=== PATIENT | male | born 1945 | race American Indian/Alaskan Native ===

== ENCOUNTER 2017-01-18 07:57 | Day surgery (SDC) | payer MEDICARE ==
[2017-01-18] MEDS ORDERED: ECOTRIN PO ONE (08:20)
[2017-01-18 08:48] LABS: Basophils % (Auto) 1.3 % (0.0-1.8); Eosinophils % (Auto) 4.9 % (0.0-4.3); Hemoglobin 13.1 gm/dl (11.8-15.2); Mean Corpuscular HGB Conc 34 % (32-34); Mean Corpuscular Hemoglobin 35 pg (28-32); Mean Corpuscular Volume 104 fl (84-94); Platelet Count 244 K/mm3 (140-440); Red Blood Count 3.75 M/mm3 (3.65-5.03); Red Cell Distribution Width 15.4 % (13.2-15.2); White Blood Count 5.2 K/mm3 (4.5-11.0)
[2017-01-18] MEDS ORDERED: NACL 0.9% 500 ML 500 ML IV SCH (09:00)
[2017-01-18 09:11] LABS: INR 0.98 (0.87-1.13)
[2017-01-18 09:19] LABS: Anion Gap 21 mmol/L; BUN/Creatinine Ratio 6.25; Blood Urea Nitrogen 5 mg/dL (9-20); Calcium 8.8 mg/dL (8.4-10.2); Carbon Dioxide 23 mmol/L (22-30); Chloride 99.9 mmol/L (98-107); Glucose 101 mg/dL (75-100); Potassium 4.2 mmol/L (3.6-5.0); Sodium 140 mmol/L (137-145)
[2017-01-18] MEDS: CALAN ONE ×2 (09:54→10:23)
[2017-01-18] MEDS: XYLOCAINE 2% INFILTRATI ONE ×2 (09:55→10:23)
[2017-01-18] MEDS: HEPARIN 10,000 UNITS/10 ML ONE ×2 (09:55→10:23)
[2017-01-18] MEDS: VERSED ONE ×2 (09:55→10:15)
[2017-01-18] MEDS: NITROGLYCERIN SYRINGE 3 ML ONE ×2 (09:56→10:23)
[2017-01-18] MEDS: SUBLIMAZE ONE ×2 (09:56→10:15)
[2017-01-18] MEDS: HEPARIN/NS 5000 UNIT/500ML(CATH LAB) 1,000 ML IR ONE ×2 (09:56→10:23)
[2017-01-18] MEDS ORDERED: NACL 0.9% 1000 ML 1,000 ML IV SCH (11:00)
--- NOTE | 2017-01-18 11:03 | Discharge Summary ---
Short Stay Discharge Plan Activity: advance as tolerated Weight Bearing Status: Full Weight Bearing Diet: low fat, low cholesterol, low salt, diabetic Wound: keep clean and dry Special Instructions: no heavy lifting (3 days), hold Metformin (48 hrs) Additional Instructions: HOLD METFORMIN for 48 hrs only Follow up with: RALF PEREIRA MD [Primary Care Provider] - 7 Days AMBAR ADAMS MD [Staff Physician] - 7 Days
--- NOTE | 2017-01-18 11:26 | Cardiac Catherization Report ---
CARDIAC CATHETERIZATION REASON FOR PROCEDURE: The patient presented with sustained atrial tachycardia, further evaluation with an echocardiogram demonstrated a dilated cardiomyopathy, and a thallium stress test was abnormal with inferior wall defect. Cardiac catheterization was recommended. DESCRIPTION OF PROCEDURE: The patient was prepped and draped in a sterile fashion after informed consent. The right radial artery was entered using the Seldinger technique followed by placement of a 6-Hungarian hydrophilic sheath. Routine radial cocktail was administered via the sheath. Selective left and right coronary angiography was performed using #3.5 left Mary and #4 right Mary catheters. A pigtail catheter was used for left ventricle angiography. The catheters were removed, sheath removed, and hemostasis achieved using manual compression. The patient was returned to the postprocedure unit in stable condition. There were no complications. FINDINGS: HEMODYNAMICS: Left ventricle end diastolic pressure was 25, following coronary angiography. Ascending aortic pressure was 119/71. There was no significant pressure gradient on pullback across the aortic valve. CORONARY ANGIOGRAPHY: The left main coronary artery was angiographically normal. The left anterior descending artery and its diagonal branches were free of significant disease. The circumflex artery and its obtuse marginal branches were free of significant disease. The right coronary artery was dominant, and similarly angiographically normal. Left ventricle was moderately to severely dilated. There was moderately severe left ventricular systolic dysfunction with diffuse hypokinesis. Left ventricular systolic ejection fraction 30-35%. CONCLUSION: 1. Essentially, angiographically normal coronary arteries. 2. Dilated, nonischemic cardiomyopathy, moderately severe left ventricular systolic dysfunction, ejection fraction 30-35%. RECOMMENDATION: Medical therapy for nonischemic cardiomyopathy. JOB# [id number] CA/NTS
[2017-01-18 14:23] VITALS: BP 134/89
== END 2017-01-18 15:00 | disposition home or self-care (01) ==
LOC: OPU 07:57
PROVIDERS: ATTEND Internal Medicine Cardiovascular Disease
DX: I42.0 Dilated cardiomyopathy (principal); E11.9 Type 2 diabetes mellitus without complications; M06.9 Rheumatoid arthritis, unspecified; I10 Essential (primary) hypertension; F17.210 Nicotine dependence, cigarettes, uncomplicated; D62 Acute posthemorrhagic anemia; F12.90 Cannabis use, unspecified, uncomplicated; Z72.89 Other problems related to lifestyle; Z90.49 Acquired absence of other specified parts of digestive tract; Z98.890 Other specified postprocedural states; Z80.0 Family history of malignant neoplasm of digestive organs; Z82.49 Family history of ischemic heart disease and other diseases of the circulatory system; Z83.3 Family history of diabetes mellitus; Z80.42 Family history of malignant neoplasm of prostate; Z79.899 Other long term (current) drug therapy
CPT/HCPCS: 36415; 80048; 85025; 85610; 85730; 93005; 93010; 93458; C1894; J1644; J2250; J3010; J7040; Q9967

== ENCOUNTER 2017-07-29 14:21 | Emergency (ER) | payer MEDICARE ==
[2017-07-29 14:43] LABS: Basophils % (Auto) 0.6 % (0.0-1.8); Eosinophils % (Auto) 0.5 % (0.0-4.3); Hematocrit 38.7 % (35.5-45.6); Mean Corpuscular HGB Conc 34 % (32-34); Mean Corpuscular Hemoglobin 36 pg (28-32); Mean Corpuscular Volume 108 fl (84-94); Platelet Count 260 K/mm3 (140-440); Red Blood Count 3.59 M/mm3 (3.65-5.03); Red Cell Distribution Width 13.5 % (13.2-15.2); White Blood Count 11.9 K/mm3 (4.5-11.0)
[2017-07-29 15:07] LABS: Albumin 3.5 g/dL (3.9-5); Albumin/Globulin Ratio 0.8 %; BUN/Creatinine Ratio 13.33; Bilirubin,Total 0.7 mg/dL (0.1-1.2); Calcium 9.1 mg/dL (8.4-10.2); Chloride 98.7 mmol/L (98-107); Potassium 3.7 mmol/L (3.6-5.0); Total Protein 7.8 g/dL (6.3-8.2)
[2017-07-29] MEDS ORDERED: NACL 0.9% 1000 ML 1,000 ML IV ONE (18:16)
[2017-07-29] MEDS ORDERED: ZOFRAN IV ONE (18:17)
[2017-07-29] MEDS ORDERED: MORPHINE IV ONE (18:17)
[2017-07-29] MEDS ORDERED: NACL ONE ×2 (18:23→18:59)
--- NOTE | 2017-07-29 18:33 | Emergency Department Report ---
HPI - General Chief Complaint: Abdominal Pain Time Seen by Provider: 07/29/17 18:15 - HPI HPI: 72-year-old -[place] male presents to ED with what lower quadrant pain for one week. Patient states pain is cramping like accompanied with nausea, and headache but no vomiting. Patient has not taking any medication at home for his symptoms. Patient denies any alleviating factors but states that eating is an exacerbating factor. Patient denies any fever but does have occasional diarrhea, consisting of loose stool, 1-3 per day. Patient smokes a pack a day cigarette and has had a colonoscopy last 5 years. Patient denies any blood in the stool, no vomiting blood. ED Past Medical Hx - Past Medical History Previous Medical History?: Yes Hx Hypertension: Yes (2013) Hx Heart Attack/AMI: No Hx Congestive Heart Failure: No Hx Diabetes: Yes (pill control) Hx Arthritis: Yes (knees) - Surgical History Past Surgical History?: Yes Hx Cholecystectomy: Yes (2005) - Family History Family history: hypertension - Social History Smoking Status: Current Every Day Smoker Substance Use Type: Alcohol - Medications Home Medications: Home Medications Medication Instructions Recorded Confirmed Last Taken Type Lisinopril 20 mg PO BID 01/20/15 01/18/17 01/17/17 History Aspirin EC [Aspirin Enteric Coated 325 mg PO QDAY 01/18/17 01/18/17 01/17/17 History TAB] Carvedilol 6.25 mg PO BID 01/18/17 01/18/17 01/17/17 History Gabapentin [Neurontin] 600 mg PO TID 01/18/17 01/18/17 01/17/17 History HYDROcodone/APAP 5-325 [Mcdonald 1 each PO Q6HR PRN #20 tablet 07/29/17 Unknown Rx 5/325] Levofloxacin [Levaquin TAB] 500 mg PO ONCE #7 tablet 07/29/17 Unknown Rx metroNIDAZOLE [Flagyl TAB] 500 mg PO Q12HR #20 tablet 07/29/17 Unknown Rx ED Review of Systems ROS: Stated complaint: ABD PAIN,HEADACHE,LOSS OF APPETITE Other details as noted in HPI Comment: All other systems reviewed and negative Endocrine: no symptoms reported Gastrointestinal: abdominal pain, nausea, diarrhea Genitourinary: as per HPI Musculoskeletal: as per HPI Skin: as per HPI Physical Exam - Physical Exam Vital Signs: Vital Signs 07/29/17 14:25 Temperature 97.5 F L Pulse Rate 69 Respiratory 16 Rate Blood Pressure 95/62 O2 Sat by Pulse 100 Oximetry Physical Exam: - Physical Exam - General Limitations: No Limitations General appearance: alert, in no apparent distress, obese - Head Head exam: Present: atraumatic, normocephalic - Eye Eye exam: Present: normal appearance - ENT ENT exam: Present: mucous membranes moist - Neck Neck exam: Present: normal inspection - Respiratory Respiratory exam: Present: normal lung sounds bilaterally. Absent: respiratory distress - Cardiovascular Cardiovascular Exam: Present: normal rhythm, tachycardia. Absent: systolic murmur, diastolic murmur, rubs, gallop - GI/Abdominal GI/Abdominal exam: Present: soft, normal bowel sounds, diffuse abdominal tenderness but no guarding - Extremities Exam Extremities exam: Present: normal inspection - Back Exam Back exam: Present: normal inspection - Neurological Exam Neurological exam: Present: alert, oriented X3 - Psychiatric Psychiatric exam: normal affect and mood - Skin Skin exam: Present: warm, dry, intact, normal color. Absent: rash ED Course Vital Signs 07/29/17 14:25 Temperature 97.5 F L Pulse Rate 69 Respiratory 16 Rate Blood Pressure 95/62 O2 Sat by Pulse 100 Oximetry ED Medical Decision Making - Lab Data Result diagrams: 07/29/17 14:31 07/29/17 14:31 Critical care attestation.: If time is entered above; I have spent that time in minutes in the direct care of this critically ill patient, excluding procedure time. ED Disposition Clinical Impression: Diverticulitis Qualifiers: Diverticulitis site: large intestine Diverticulitis bleeding: without bleeding Diverticulitis complication: without perforation or abscess Qualified Code(s): K57.32 - Diverticulitis of large intestine without perforation or abscess without bleeding Disposition: DC-01 TO HOME OR SELFCARE Is pt being admited?: No Does the pt Need Aspirin: No Condition: Stable Prescriptions: HYDROcodone/APAP 5-325 [Mcdonald 5/325] 1 each PO Q6HR PRN #20 tablet PRN Reason: Pain Levofloxacin [Levaquin TAB] 500 mg PO ONCE #7 tablet metroNIDAZOLE [Flagyl TAB] 500 mg PO Q12HR #20 tablet Referrals: RALF PEREIRA MD [Primary Care Provider] - 3-5 Days
--- NOTE | 2017-07-29 19:55 | Cat Scan Report ---
FINAL REPORT PROCEDURE: CT ABDOMEN PELVIS W CON TECHNIQUE: Computerized axial tomography of the abdomen and pelvis was performed after the IV injection of iodinated nonionic contrast. HISTORY: abd pain COMPARISON: 01/20/2015 FINDINGS: Visualized lower thorax: Mild bronchiectasis is seen in bilateral lung bases. There is linear atelectasis or scarring as well. Liver: Normal size and attenuation. Spleen: Normal size and attenuation. Gallbladder and biliary system: There has been cholecystectomy. There is diffuse biliary ductal dilatation, which may be related to prior cholecystectomy. Pancreas: Normal. Adrenals: There is left adrenal hyperplasia. Kidneys: Normal. GI tract: There is wall thickening and mild inflammation involving the hepatic flexure as well as the distal transverse colon. Findings are nonspecific but may be related to diverticulitis. Moderate volume of stool is seen throughout the colon. There is no evidence of bowel obstruction. There is diffuse diverticulosis. The appendix is visualized but does not appear inflamed. No extraluminal air or abscess is identified. Lymph nodes and mesentery: Normal. Vasculature: Normal. Bladder: Normal. Reproductive organs: Normal. Peritoneum: No free fluid. Musculoskeletal structures: There are degenerative disc and facet arthritic changes of the lumbar spine. Other: None. IMPRESSION: Findings are compatible with diverticulitis involving the distal transverse colon as well as the hepatic flexure. However recommend follow-up CT after treatment to exclude any underlying inflammatory mass. No extraluminal air or abscess is seen
[2017-07-29] MEDS ORDERED: FLAGYL PO ONE (20:27)
[2017-07-29] MEDS ORDERED: LEVAQUIN PO ONE (20:27)
[2017-07-29 21:46] VITALS: BP 111/65
== END 2017-07-29 21:51 | disposition home or self-care (01) ==
LOC: ED 14:21
DX: K57.92 Diverticulitis of intestine, part unspecified, without perforation or abscess without bleeding (principal); I10 Essential (primary) hypertension; E11.9 Type 2 diabetes mellitus without complications; M19.90 Unspecified osteoarthritis, unspecified site; F17.210 Nicotine dependence, cigarettes, uncomplicated; Z79.82 Long term (current) use of aspirin
CPT/HCPCS: 36415; 74177; 80053; 83690; 85025; 96361; 96374; 96375; 99284; J2270; J2405; J7030; Q9967

== ENCOUNTER 2017-09-28 16:03 | Inpatient (IN) | payer MEDICARE ==
[2017-09-28 17:01] LABS: Basophils % (Auto) 0.7 % (0.0-1.8); Eosinophils % (Auto) 0.8 % (0.0-4.3); Hematocrit 38.7 % (35.5-45.6); Hemoglobin 13.1 gm/dl (11.8-15.2); Mean Corpuscular HGB Conc 34 % (32-34); Mean Corpuscular Hemoglobin 36 pg (28-32); Mean Corpuscular Volume 106 fl (84-94); Platelet Count 250 K/mm3 (140-440); Red Blood Count 3.64 M/mm3 (3.65-5.03); Red Cell Distribution Width 14.8 % (13.2-15.2); White Blood Count 7.7 K/mm3 (4.5-11.0)
--- NOTE | 2017-09-28 17:15 | Cat Scan Report ---
FINAL REPORT PROCEDURE: CT head without contrast. TECHNIQUE: Computerized tomography of the head was performed without contrast material. HISTORY: Altered mental status. COMPARISON: No prior studies are available for comparison. FINDINGS: There is moderate cerebral atrophy. There is moderate evidence of chronic ischemic white matter disease. There are no mass lesions. There is no intracranial hemorrhage. There are no signs of acute infarction. An MRI scan with diffusion-weighted imaging is the most sensitive means of detecting an early stroke. 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 The calvarium appears intact. The mastoid air cells are clear as far as visualized. There is fluid in the left frontal sinus, the left anterior ethmoid air cell and the left maxillary sinus. IMPRESSION: Cerebral atrophy and chronic ischemic changes as described. Left-sided sinusitis.
[2017-09-28 17:24] LABS: INR 1.04 (0.87-1.13)
[2017-09-28 17:25] LABS: Partial Thromboplastin Time 26.3 Sec. (24.2-36.6)
[2017-09-28 17:34] LABS: BUN/Creatinine Ratio 10; Blood Urea Nitrogen 10 mg/dL (9-20); Carbon Dioxide 25 mmol/L (22-30); Glucose 156 mg/dL (75-100)
[2017-09-28 17:35] LABS: Alanine Aminotransferase 10 units/L (7-56); Albumin/Globulin Ratio 1.2 %; Alkaline Phosphatase 49 units/L (35-129); Anion Gap 21 mmol/L; Calcium 9.2 mg/dL (8.4-10.2); Chloride 101.1 mmol/L (98-107); Lipase 24 units/L (13-60); Potassium 4.1 mmol/L (3.6-5.0); Sodium 143 mmol/L (137-145); Total Protein 7.3 g/dL (6.3-8.2)
[2017-09-28 17:39] LABS: Bilirubin,Direct < 0.2 mg/dL (0-0.2); Bilirubin,Indirect 0.3 mg/dL
--- NOTE | 2017-09-28 17:43 | Emergency Department Report ---
ED Altered Mental Status HPI - General Chief Complaint: Altered Mental Status Stated Complaint: ALTERED MENTAL STATUS Time Seen by Provider: 09/28/17 16:39 Source: patient Mode of arrival: Ambulatory Limitations: No Limitations - History of Present Illness Initial Comments: According to the , the daughter found this patient confused that her bilateral clock this morning. The patient was oriented to person and place but a bit lethargic on arrival. He required assistance to be placed in bed and seems to be having shortness of breath. He denied chest pain but did admit that he was having shortness of breath. His stated that he is never seen a real estate instructor and has no history of cardiac problems. The patient himself has no specific complaint other than shortness of breath. The denies any recent fever. She states that he was a daily drinker of hard alcohol per switched to beer about a month ago. It is uncertain if he has recently stopped drinking completely. MD Complaint: confusion -: This morning Severity: mild, moderate Consistency of Symptoms: waxing and waning Context: alcohol abuse ( states used to drink hard liquor until a month ago when he switched to beer. He may have stopped drinking recently?) Associated Symptoms: shortness of breath - Related Data Home Medications Medication Instructions Recorded Confirmed Last Taken Lisinopril 20 mg PO BID 01/20/15 01/18/17 01/17/17 Aspirin EC [Aspirin Enteric Coated 325 mg PO QDAY 01/18/17 01/18/17 01/17/17 TAB] Carvedilol 6.25 mg PO BID 01/18/17 01/18/17 01/17/17 Gabapentin [Neurontin] 600 mg PO TID 01/18/17 01/18/17 01/17/17 Previous Rx's Medication Instructions Recorded Last Taken Type HYDROcodone/APAP 5-325 [[place] 1 each PO Q6HR PRN #20 tablet 07/29/17 Unknown Rx 5/325] Levofloxacin [Levaquin TAB] 500 mg PO ONCE #7 tablet 07/29/17 Unknown Rx Ondansetron [Zofran TAB] 4 mg PO Q8HR PRN #15 tablet 07/29/17 Unknown Rx metroNIDAZOLE [Flagyl TAB] 500 mg PO Q12HR #20 tablet 07/29/17 Unknown Rx Allergies Allergy/AdvReac Type Severity Reaction Status Date / Time No Known Allergies Allergy Verified 11/18/15 11:57 ED Review of Systems ROS: Stated complaint: ALTERED MENTAL STATUS Other details as noted in HPI Comment: Unobtainable due to pts medical conditions (Limited secondary to patient status) Constitutional: denies: chills, fever Eyes: denies: eye pain, eye discharge, vision change ENT: denies: ear pain, throat pain Respiratory: shortness of breath. denies: cough, wheezing Cardiovascular: denies: chest pain, palpitations Endocrine: no symptoms reported Gastrointestinal: denies: abdominal pain, nausea, diarrhea Genitourinary: denies: urgency, dysuria Musculoskeletal: denies: back pain, joint swelling, arthralgia Skin: denies: rash, lesions Neurological: other (confusion). denies: headache, weakness, paresthesias Psychiatric: denies: anxiety, depression Hematological/Lymphatic: denies: easy bleeding, easy bruising ED Past Medical Hx - Past Medical History Hx Hypertension: Yes (2013) Hx Heart Attack/AMI: No Hx Congestive Heart Failure: No Hx Diabetes: Yes (pill control) Hx Arthritis: Yes (knees) - Surgical History Hx Cholecystectomy: Yes (2005) - Social History Smoking Status: Current Every Day Smoker Substance Use Type: Alcohol, Marijuana - Medications Home Medications: Home Medications Medication Instructions Recorded Confirmed Last Taken Type Lisinopril 20 mg PO BID 01/20/15 01/18/17 01/17/17 History Aspirin EC [Aspirin Enteric Coated 325 mg PO QDAY 01/18/17 01/18/17 01/17/17 History TAB] Carvedilol 6.25 mg PO BID 01/18/17 01/18/17 01/17/17 History Gabapentin [Neurontin] 600 mg PO TID 01/18/17 01/18/17 01/17/17 History HYDROcodone/APAP 5-325 [[place] 1 each PO Q6HR PRN #20 tablet 07/29/17 Unknown Rx 5/325] Levofloxacin [Levaquin TAB] 500 mg PO ONCE #7 tablet 07/29/17 Unknown Rx Ondansetron [Zofran TAB] 4 mg PO Q8HR PRN #15 tablet 07/29/17 Unknown Rx metroNIDAZOLE [Flagyl TAB] 500 mg PO Q12HR #20 tablet 07/29/17 Unknown Rx ED Physical Exam - General Limitations: No Limitations General appearance: in no apparent distress, lethargic - Head Head exam: Present: atraumatic, normocephalic - Eye Eye exam: Present: normal appearance, PERRL, EOMI. Absent: scleral icterus - ENT ENT exam: Present: mucous membranes moist - Neck Neck exam: Present: normal inspection. Absent: tenderness, meningismus - Respiratory Respiratory exam: Present: normal lung sounds bilaterally. Absent: respiratory distress - Cardiovascular Cardiovascular Exam: Present: regular rate, normal rhythm. Absent: systolic murmur, diastolic murmur, rubs, gallop - GI/Abdominal GI/Abdominal exam: Present: soft, normal bowel sounds. Absent: distended, tenderness, guarding, rebound, rigid - Rectal Rectal exam: Present: deferred - Extremities Exam Extremities exam: Present: normal inspection - Back Exam Back exam: Present: normal inspection - Neurological Exam Neurological exam: Present: alert, oriented X3, CN II-XII intact, abnormal gait (unsteady gait). Absent: motor sensory deficit - Psychiatric Psychiatric exam: Present: anxious, flat affect - Skin Skin exam: Present: warm, dry, intact, normal color. Absent: rash - Assessment Assessment Interval: Baseline - Level of Consciousness 1a. Level of Consciousness: alert - LOC Questions 1b. LOC Questions: answers correctly - LOC Command 1c. LOC Commands: performs tasks correctly - Best Gaze 2. Best Gaze: normal - Visual 3. Visual: no visual loss - Facial Palsy 4. Facial Palsy: normal symmetrical movement - Motor Arm 5b. Motor Arm Right: no drift 5a. Motor Arm Left: no drift - Motor Leg 6a. Motor Leg Left: no drift 6b. Motor Leg Right: no drift - Limb Ataxia 7. Limb Ataxia: absent - Sensory 8. Sensory: normal - Best Language 9. Best Language: no aphasia - Dysarthria 10. Dysarthria: normal - Extinction and Inattention 11. Extinction/Inattention: no abnormality - Scoring Total Score: 0 Stroke Severity: No Stroke Symptoms ED Course Vital Signs 09/28/17 09/28/17 09/28/17 16:14 17:48 17:58 Temperature 99.4 F 98.1 F Pulse Rate 48 L 94 H Respiratory 20 18 16 Rate Blood Pressure 178/80 Blood Pressure [Right] O2 Sat by Pulse 97 98 95 Oximetry 09/28/17 09/28/17 18:00 18:01 Temperature 97.5 F L Pulse Rate 47 L 47 L Respiratory 16 Rate Blood Pressure Blood Pressure 171/92 [Right] O2 Sat by Pulse 95 Oximetry - Reevaluation(s) Reevaluation #1: Patient remained in a stable junctional rhythm. His first EKG showed P waves marching through I believe therefore complete heart block. His chest x-ray showed COPD with lower lobe infiltrates and generally consistent with CHF. He had no white count elevation. His BNP was nearly 8700. He was given Lasix. Arterial blood gas was ordered and is still pending. His lactic acid was normal. His alcohol level was negative. His urine as yet pending. At this juncture I do not see evidence of an infectious process. So far it appears that the patient is in complete heart block and congestive heart failure. I have discussed this with Dr. Darnell, the real estate instructor, who will consult. Dr. Joe is attending the patient. His confusion is yet of uncertain etiology. CT of his head showed no acute process. He did appear to have a gait disturbance. He will be given aspirin. A cerebellar or brainstem stroke cannot be excluded. 09/28/17 18:19 Reevaluation #2: The patient's and the patient denied he had ever seen a real estate instructor or had any heart problem. However, on review of the patient's prior medical record he is actually had a cardiac catheterization by Dr. ramirez in December 2016. 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 He had an echocardiogram which showed a better EF in 2014 also done by [facility]. Therefore, consult to [facility] who is engine emission technician is canceled. I spoke to will be the consulting cardiology for [facility]. He recommended discontinue carvedilol. 09/28/17 18:36 Reevaluation #3: An arterial blood gas did show a PO2 of 58 and respiratory alkalosis. The patient was placed on 2 L of oxygen via nasal cannula. 09/28/17 18:38 - Lab Data Result diagrams: 09/28/17 16:47 09/28/17 17:05 Lab Results 09/28/17 09/28/17 09/28/17 Range/Units 16:16 16:47 16:47 WBC 7.7 (4.5-11.0) K/mm3 RBC 3.64 L (3.65-5.03) M/mm3 Hgb 13.1 (11.8-15.2) gm/dl Hct 38.7 (35.5-45.6) % MCV 106 H (84-94) fl MCH 36 H (28-32) pg MCHC 34 (32-34) % RDW 14.8 (13.2-15.2) % Plt Count 250 (140-440) K/mm3 Lymph % (Auto) 24.5 (13.4-35.0) % [place] % (Auto) 9.5 H (0.0-7.3) % Eos % (Auto) 0.8 (0.0-4.3) % Baso % (Auto) 0.7 (0.0-1.8) % Lymph # 1.9 (1.2-5.4) K/mm3 [place] # 0.7 (0.0-0.8) K/mm3 Eos # 0.1 (0.0-0.4) K/mm3 Baso # 0.1 (0.0-0.1) K/mm3 Seg Neutrophils % 64.5 (40.0-70.0) % Seg Neutrophils # 5.0 (1.8-7.7) K/mm3 PT (12.2-14.9) Sec. INR (0.87-1.13) APTT (24.2-36.6) Sec. Sodium (137-145) mmol/L Potassium (3.6-5.0) mmol/L Chloride (98-107) mmol/L Carbon Dioxide (22-30) mmol/L Anion Gap mmol/L BUN (9-20) mg/dL Creatinine (0.8-1.5) mg/dL Estimated GFR ml/min BUN/Creatinine Ratio % Glucose (75-100) mg/dL POC Glucose 193 H (70-105) Lactic Acid (0.7-2.0) mmol/L Calcium (8.4-10.2) mg/dL Magnesium 2.00 (1.7-2.3) mg/dL Total Bilirubin (0.1-1.2) mg/dL Direct Bilirubin (0-0.2) mg/dL Indirect Bilirubin mg/dL AST (5-40) units/L ALT (7-56) units/L Alkaline Phosphatase (35-129) units/L Ammonia (25-60) umol/L Total Creatine Kinase (55-170) units/L CK-MB (CK-2) (0.0-4.0) ng/mL CK-MB (CK-2) Rel Index (0-4) Troponin T (0.00-0.029) ng/mL NT-Pro-B Natriuret Pep (0-900) pg/mL Total Protein (6.3-8.2) g/dL Albumin (3.9-5) g/dL Albumin/Globulin Ratio % Lipase (13-60) units/L TSH (0.270-4.200) mlU/mL Urine Color (Yellow) Urine Turbidity (Clear) Urine pH (5.0-7.0) Ur Specific [place] (1.003-1.030) Urine Protein (Negative) mg/dL Urine Glucose (UA) (Negative) mg/dL Urine Ketones (Negative) mg/dL Urine Blood (Negative) Urine Nitrite (Negative) Urine Bilirubin (Negative) Urine Urobilinogen (<2.0) mg/dL Ur Leukocyte Esterase (Negative) Urine WBC (Auto) (0.0-6.0) /HPF Urine RBC (Auto) (0.0-6.0) /HPF U Epithel Cells (Auto) (0-13.0) /HPF Urine Mucus /HPF Salicylates (2.8-20.0) mg/dL Urine Opiates Screen Urine Methadone Screen Acetaminophen (10.0-30.0) ug/mL Ur Barbiturates Screen Ur Phencyclidine Scrn Ur Amphetamines Screen U Benzodiazepines Scrn Urine Cocaine Screen Plasma/Serum Alcohol (0-0.07) gm% 09/28/17 09/28/17 09/28/17 Range/Units 16:47 16:47 16:47 WBC (4.5-11.0) K/mm3 RBC (3.65-5.03) M/mm3 Hgb (11.8-15.2) gm/dl Hct (35.5-45.6) % MCV (84-94) fl MCH (28-32) pg MCHC (32-34) % RDW (13.2-15.2) % Plt Count (140-440) K/mm3 Lymph % (Auto) (13.4-35.0) % [place] % (Auto) (0.0-7.3) % Eos % (Auto) (0.0-4.3) % Baso % (Auto) (0.0-1.8) % Lymph # (1.2-5.4) K/mm3 [place] # (0.0-0.8) K/mm3 Eos # (0.0-0.4) K/mm3 Baso # (0.0-0.1) K/mm3 Seg Neutrophils % (40.0-70.0) % Seg Neutrophils # (1.8-7.7) K/mm3 PT (12.2-14.9) Sec. INR (0.87-1.13) APTT (24.2-36.6) Sec. Sodium (137-145) mmol/L Potassium (3.6-5.0) mmol/L Chloride (98-107) mmol/L Carbon Dioxide (22-30) mmol/L Anion Gap mmol/L BUN (9-20) mg/dL Creatinine (0.8-1.5) mg/dL Estimated GFR ml/min BUN/Creatinine Ratio % Glucose (75-100) mg/dL POC Glucose (70-105) Lactic Acid 1.90 (0.7-2.0) mmol/L Calcium (8.4-10.2) mg/dL Magnesium (1.7-2.3) mg/dL Total Bilirubin (0.1-1.2) mg/dL Direct Bilirubin (0-0.2) mg/dL Indirect Bilirubin mg/dL AST (5-40) units/L ALT (7-56) units/L Alkaline Phosphatase (35-129) units/L Ammonia (25-60) umol/L Total Creatine Kinase (55-170) units/L CK-MB (CK-2) (0.0-4.0) ng/mL CK-MB (CK-2) Rel Index (0-4) Troponin T (0.00-0.029) ng/mL NT-Pro-B Natriuret Pep (0-900) pg/mL Total Protein (6.3-8.2) g/dL Albumin (3.9-5) g/dL Albumin/Globulin Ratio % Lipase (13-60) units/L TSH 0.755 (0.270-4.200) mlU/mL Urine Color (Yellow) Urine Turbidity (Clear) Urine pH (5.0-7.0) Ur Specific [place] (1.003-1.030) Urine Protein (Negative) mg/dL Urine Glucose (UA) (Negative) mg/dL Urine Ketones (Negative) mg/dL Urine Blood (Negative) Urine Nitrite (Negative) Urine Bilirubin (Negative) Urine Urobilinogen (<2.0) mg/dL Ur Leukocyte Esterase (Negative) Urine WBC (Auto) (0.0-6.0) /HPF Urine RBC (Auto) (0.0-6.0) /HPF U Epithel Cells (Auto) (0-13.0) /HPF Urine Mucus /HPF Salicylates (2.8-20.0) mg/dL Urine Opiates Screen Urine Methadone Screen Acetaminophen < 15.0 (10.0-30.0) ug/mL Ur Barbiturates Screen Ur Phencyclidine Scrn Ur Amphetamines Screen U Benzodiazepines Scrn Urine Cocaine Screen Plasma/Serum Alcohol (0-0.07) gm% 09/28/17 09/28/17 09/28/17 Range/Units 16:47 16:55 17:05 WBC (4.5-11.0) K/mm3 RBC (3.65-5.03) M/mm3 Hgb (11.8-15.2) gm/dl Hct (35.5-45.6) % MCV (84-94) fl MCH (28-32) pg MCHC (32-34) % RDW (13.2-15.2) % Plt Count (140-440) K/mm3 Lymph % (Auto) (13.4-35.0) % [place] % (Auto) (0.0-7.3) % Eos % (Auto) (0.0-4.3) % Baso % (Auto) (0.0-1.8) % Lymph # (1.2-5.4) K/mm3 [place] # (0.0-0.8) K/mm3 Eos # (0.0-0.4) K/mm3 Baso # (0.0-0.1) K/mm3 Seg Neutrophils % (40.0-70.0) % Seg Neutrophils # (1.8-7.7) K/mm3 PT (12.2-14.9) Sec. INR (0.87-1.13) APTT (24.2-36.6) Sec. Sodium (137-145) mmol/L Potassium (3.6-5.0) mmol/L Chloride (98-107) mmol/L Carbon Dioxide (22-30) mmol/L Anion Gap mmol/L BUN (9-20) mg/dL Creatinine (0.8-1.5) mg/dL Estimated GFR ml/min BUN/Creatinine Ratio % Glucose (75-100) mg/dL POC Glucose (70-105) Lactic Acid (0.7-2.0) mmol/L Calcium (8.4-10.2) mg/dL Magnesium (1.7-2.3) mg/dL Total Bilirubin (0.1-1.2) mg/dL Direct Bilirubin (0-0.2) mg/dL Indirect Bilirubin mg/dL AST (5-40) units/L ALT (7-56) units/L Alkaline Phosphatase (35-129) units/L Ammonia 27.0 (25-60) umol/L Total Creatine Kinase (55-170) units/L CK-MB (CK-2) (0.0-4.0) ng/mL CK-MB (CK-2) Rel Index (0-4) Troponin T (0.00-0.029) ng/mL NT-Pro-B Natriuret Pep (0-900) pg/mL Total Protein (6.3-8.2) g/dL Albumin (3.9-5) g/dL Albumin/Globulin Ratio % Lipase (13-60) units/L TSH (0.270-4.200) mlU/mL Urine Color (Yellow) Urine Turbidity (Clear) Urine pH (5.0-7.0) Ur Specific [place] (1.003-1.030) Urine Protein (Negative) mg/dL Urine Glucose (UA) (Negative) mg/dL Urine Ketones (Negative) mg/dL Urine Blood (Negative) Urine Nitrite (Negative) Urine Bilirubin (Negative) Urine Urobilinogen (<2.0) mg/dL Ur Leukocyte Esterase (Negative) Urine WBC (Auto) (0.0-6.0) /HPF Urine RBC (Auto) (0.0-6.0) /HPF U Epithel Cells (Auto) (0-13.0) /HPF Urine Mucus /HPF Salicylates < 0.3 L (2.8-20.0) mg/dL Urine Opiates Screen Urine Methadone Screen Acetaminophen (10.0-30.0) ug/mL Ur Barbiturates Screen Ur Phencyclidine Scrn Ur Amphetamines Screen U Benzodiazepines Scrn Urine Cocaine Screen Plasma/Serum Alcohol < 0.01 (0-0.07) gm% 09/28/17 09/28/17 09/28/17 Range/Units 17:05 17:05 17:05 WBC (4.5-11.0) K/mm3 RBC (3.65-5.03) M/mm3 Hgb (11.8-15.2) gm/dl Hct (35.5-45.6) % MCV (84-94) fl MCH (28-32) pg MCHC (32-34) % RDW (13.2-15.2) % Plt Count (140-440) K/mm3 Lymph % (Auto) (13.4-35.0) % [place] % (Auto) (0.0-7.3) % Eos % (Auto) (0.0-4.3) % Baso % (Auto) (0.0-1.8) % Lymph # (1.2-5.4) K/mm3 [place] # (0.0-0.8) K/mm3 Eos # (0.0-0.4) K/mm3 Baso # (0.0-0.1) K/mm3 Seg Neutrophils % (40.0-70.0) % Seg Neutrophils # (1.8-7.7) K/mm3 PT 14.1 (12.2-14.9) Sec. INR 1.04 (0.87-1.13) APTT 26.3 (24.2-36.6) Sec. Sodium 143 (137-145) mmol/L Potassium 4.1 (3.6-5.0) mmol/L Chloride 101.1 (98-107) mmol/L Carbon Dioxide 25 (22-30) mmol/L Anion Gap 21 mmol/L BUN 10 (9-20) mg/dL Creatinine 1.0 (0.8-1.5) mg/dL Estimated GFR > 60 ml/min BUN/Creatinine Ratio 10 % Glucose 156 H (75-100) mg/dL POC Glucose (70-105) Lactic Acid (0.7-2.0) mmol/L Calcium 9.2 (8.4-10.2) mg/dL Magnesium (1.7-2.3) mg/dL Total Bilirubin 0.50 (0.1-1.2) mg/dL Direct Bilirubin < 0.2 (0-0.2) mg/dL Indirect Bilirubin 0.3 mg/dL AST 14 (5-40) units/L ALT 10 (7-56) units/L Alkaline Phosphatase 49 (35-129) units/L Ammonia (25-60) umol/L Total Creatine Kinase 173 H (55-170) units/L CK-MB (CK-2) 2.9 (0.0-4.0) ng/mL CK-MB (CK-2) Rel Index 1.6 (0-4) Troponin T 0.038 H (0.00-0.029) ng/mL NT-Pro-B Natriuret Pep 8683 H (0-900) pg/mL Total Protein 7.3 (6.3-8.2) g/dL Albumin 4.0 (3.9-5) g/dL Albumin/Globulin Ratio 1.2 % Lipase 24 (13-60) units/L TSH (0.270-4.200) mlU/mL Urine Color (Yellow) Urine Turbidity (Clear) Urine pH (5.0-7.0) Ur Specific [place] (1.003-1.030) Urine Protein (Negative) mg/dL Urine Glucose (UA) (Negative) mg/dL Urine Ketones (Negative) mg/dL Urine Blood (Negative) Urine Nitrite (Negative) Urine Bilirubin (Negative) Urine Urobilinogen (<2.0) mg/dL Ur Leukocyte Esterase (Negative) Urine WBC (Auto) (0.0-6.0) /HPF Urine RBC (Auto) (0.0-6.0) /HPF U Epithel Cells (Auto) (0-13.0) /HPF Urine Mucus /HPF Salicylates (2.8-20.0) mg/dL Urine Opiates Screen Urine Methadone Screen Acetaminophen (10.0-30.0) ug/mL Ur Barbiturates Screen Ur Phencyclidine Scrn Ur Amphetamines Screen U Benzodiazepines Scrn Urine Cocaine Screen Plasma/Serum Alcohol (0-0.07) gm% 09/28/17 09/28/17 Range/Units 17:48 17:48 WBC (4.5-11.0) K/mm3 RBC (3.65-5.03) M/mm3 Hgb (11.8-15.2) gm/dl Hct (35.5-45.6) % MCV (84-94) fl MCH (28-32) pg MCHC (32-34) % RDW (13.2-15.2) % Plt Count (140-440) K/mm3 Lymph % (Auto) (13.4-35.0) % [place] % (Auto) (0.0-7.3) % Eos % (Auto) (0.0-4.3) % Baso % (Auto) (0.0-1.8) % Lymph # (1.2-5.4) K/mm3 [place] # (0.0-0.8) K/mm3 Eos # (0.0-0.4) K/mm3 Baso # (0.0-0.1) K/mm3 Seg Neutrophils % (40.0-70.0) % Seg Neutrophils # (1.8-7.7) K/mm3 PT (12.2-14.9) Sec. INR (0.87-1.13) APTT (24.2-36.6) Sec. Sodium (137-145) mmol/L Potassium (3.6-5.0) mmol/L Chloride (98-107) mmol/L Carbon Dioxide (22-30) mmol/L Anion Gap mmol/L BUN (9-20) mg/dL Creatinine (0.8-1.5) mg/dL Estimated GFR ml/min BUN/Creatinine Ratio % Glucose (75-100) mg/dL POC Glucose (70-105) Lactic Acid (0.7-2.0) mmol/L Calcium (8.4-10.2) mg/dL Magnesium (1.7-2.3) mg/dL Total Bilirubin (0.1-1.2) mg/dL Direct Bilirubin (0-0.2) mg/dL Indirect Bilirubin mg/dL AST (5-40) units/L ALT (7-56) units/L Alkaline Phosphatase (35-129) units/L Ammonia (25-60) umol/L Total Creatine Kinase (55-170) units/L CK-MB (CK-2) (0.0-4.0) ng/mL CK-MB (CK-2) Rel Index (0-4) Troponin T (0.00-0.029) ng/mL NT-Pro-B Natriuret Pep (0-900) pg/mL Total Protein (6.3-8.2) g/dL Albumin (3.9-5) g/dL Albumin/Globulin Ratio % Lipase (13-60) units/L TSH (0.270-4.200) mlU/mL Urine Color Yellow (Yellow) Urine Turbidity Clear (Clear) Urine pH 6.0 (5.0-7.0) Ur Specific [place] 1.019 (1.003-1.030) Urine Protein >500 (Negative) mg/dL Urine Glucose (UA) Neg (Negative) mg/dL Urine Ketones 20 (Negative) mg/dL Urine Blood Neg (Negative) Urine Nitrite Neg (Negative) Urine Bilirubin Neg (Negative) Urine Urobilinogen 4.0 (<2.0) mg/dL Ur Leukocyte Esterase Neg (Negative) Urine WBC (Auto) 1.0 (0.0-6.0) /HPF Urine RBC (Auto) 4.0 (0.0-6.0) /HPF U Epithel Cells (Auto) 1.0 (0-13.0) /HPF Urine Mucus Few /HPF Salicylates (2.8-20.0) mg/dL Urine Opiates Screen Presumptive negative Urine Methadone Screen Presumptive negative Acetaminophen (10.0-30.0) ug/mL Ur Barbiturates Screen Presumptive negative Ur Phencyclidine Scrn Presumptive negative Ur Amphetamines Screen Presumptive negative U Benzodiazepines Scrn Presumptive negative Urine Cocaine Screen Presumptive negative Plasma/Serum Alcohol (0-0.07) gm% Laboratory Results - last 24 hr 09/28/17 09/28/17 09/28/17 16:16 16:47 16:47 WBC 7.7 RBC 3.64 L Hgb 13.1 Hct 38.7 MCV 106 H MCH 36 H MCHC 34 RDW 14.8 Plt Count 250 Lymph % (Auto) 24.5 [place] % (Auto) 9.5 H Eos % (Auto) 0.8 Baso % (Auto) 0.7 Lymph # 1.9 [place] # 0.7 Eos # 0.1 Baso # 0.1 Seg Neutrophils % 64.5 Seg Neutrophils # 5.0 PT INR APTT Sodium Potassium Chloride Carbon Dioxide Anion Gap BUN Creatinine Estimated GFR BUN/Creatinine Ratio Glucose POC Glucose 193 H Lactic Acid Calcium Magnesium 2.00 Total Bilirubin Direct Bilirubin Indirect Bilirubin AST ALT Alkaline Phosphatase Ammonia NT-Pro-B Natriuret Pep Total Protein Albumin Albumin/Globulin Ratio Lipase TSH Salicylates Acetaminophen Plasma/Serum Alcohol 09/28/17 09/28/17 09/28/17 16:47 16:47 16:47 WBC RBC Hgb Hct MCV MCH MCHC RDW Plt Count Lymph % (Auto) [place] % (Auto) Eos % (Auto) Baso % (Auto) Lymph # [place] # Eos # Baso # Seg Neutrophils % Seg Neutrophils # PT INR APTT Sodium Potassium Chloride Carbon Dioxide Anion Gap BUN Creatinine Estimated GFR BUN/Creatinine Ratio Glucose POC Glucose Lactic Acid 1.90 Calcium Magnesium Total Bilirubin Direct Bilirubin Indirect Bilirubin AST ALT Alkaline Phosphatase Ammonia NT-Pro-B Natriuret Pep Total Protein Albumin Albumin/Globulin Ratio Lipase TSH 0.755 Salicylates Acetaminophen < 15.0 Plasma/Serum Alcohol 09/28/17 09/28/17 09/28/17 16:47 16:55 17:05 WBC RBC Hgb Hct MCV MCH MCHC RDW Plt Count Lymph % (Auto) [place] % (Auto) Eos % (Auto) Baso % (Auto) Lymph # [place] # Eos # Baso # Seg Neutrophils % Seg Neutrophils # PT INR APTT Sodium Potassium Chloride Carbon Dioxide Anion Gap BUN Creatinine Estimated GFR BUN/Creatinine Ratio Glucose POC Glucose Lactic Acid Calcium Magnesium Total Bilirubin Direct Bilirubin Indirect Bilirubin AST ALT Alkaline Phosphatase Ammonia 27.0 NT-Pro-B Natriuret Pep Total Protein Albumin Albumin/Globulin Ratio Lipase TSH Salicylates < 0.3 L Acetaminophen Plasma/Serum Alcohol < 0.01 09/28/17 09/28/17 17:05 17:05 WBC RBC Hgb Hct MCV MCH MCHC RDW Plt Count Lymph % (Auto) [place] % (Auto) Eos % (Auto) Baso % (Auto) Lymph # [place] # Eos # Baso # Seg Neutrophils % Seg Neutrophils # PT 14.1 INR 1.04 APTT 26.3 Sodium 143 Potassium 4.1 Chloride 101.1 Carbon Dioxide 25 Anion Gap 21 BUN 10 Creatinine 1.0 Estimated GFR > 60 BUN/Creatinine Ratio 10 Glucose 156 H POC Glucose Lactic Acid Calcium 9.2 Magnesium Total Bilirubin 0.50 Direct Bilirubin < 0.2 Indirect Bilirubin 0.3 AST 14 ALT 10 Alkaline Phosphatase 49 Ammonia NT-Pro-B Natriuret Pep 8683 H Total Protein 7.3 Albumin 4.0 Albumin/Globulin Ratio 1.2 Lipase 24 TSH Salicylates Acetaminophen Plasma/Serum Alcohol - EKG Data -: EKG Interpreted by Me Interpretation: other (complete heart block. Possible evidence of inferior and anterior inferior zone. Right bundle branch block probable junctional rhythm at about 47.) Critical Care Time: Yes Critical care time in (mins) excluding proc time.: 60 Critical care attestation.: If time is entered above; I have spent that time in minutes in the direct care of this critically ill patient, excluding procedure time. ED Disposition Clinical Impression: Complete heart block, Hypoxia Congestive heart failure Qualifiers: Congestive heart failure type: combined Congestive heart failure chronicity: acute Qualified Code(s): I50.41 - Acute combined systolic (congestive) and diastolic (congestive) heart failure Altered mental status Qualifiers: Altered mental status type: disorientation Qualified Code(s): R41.0 - Disorientation, unspecified Disposition: -09 OP ADMIT IP TO THIS HOSP Is pt being admited?: Yes Does the pt Need Aspirin: Yes Condition: Stable Referrals: PRIMARY CARE, [Primary Care Provider] - 3-5 Days Time of Disposition: 18:40
[2017-09-28] MEDS ORDERED: LASIX IV ONE (17:49)
[2017-09-28 17:52] LABS: Urine Drugs of Abuse Note Disclamer
[2017-09-28 18:09] LABS: Bilirubin,Urine NEG (Negative); Blood,Urine NEG (Negative); Ketones,Urine 20 mg/dL (Negative); Leukocyte Esterase,Urine NEG (Negative); Mucus,Urine FEW /HPF; Nitrite,Urine NEG (Negative)
[2017-09-28 18:13] LABS: Protein,Urine >500 mg/dL (Negative)
[2017-09-28 18:32] LABS: Creatine Kinase MB 2.9 ng/mL (0.0-4.0)
[2017-09-28 18:43] LABS: ISTAT Base Excess -3; ISTAT DEVICE 0; ISTAT HCO3 20.2; ISTAT PCO2 26.6 (35-45); ISTAT PH 7.489 (7.35-7.45); ISTAT PO2 58 (80-105); ISTAT SO2 92; ISTAT TCO2 21
[2017-09-28] MEDS ORDERED: ASPIRIN PO SCH (19:00)
[2017-09-28] MEDS ORDERED: ZOFRAN IV PRN (21:48)
[2017-09-28] MEDS ORDERED: DULCOLAX PR PRN (21:48)
[2017-09-28] MEDS ORDERED: TYLENOL PO PRN (21:48)
--- NOTE | 2017-09-28 21:48 | History and Physical Report ---
History of Present Illness Date of examination: 09/28/17 Date of admission: 09/28/17 Chief complaint: Cc : Altered sensorium since AM History of present illness: KIVALINA: 72 y/o AAM with pmh significant for HTN, PN and etoh dependence brought in for altered sensorium since AM.. No chest pain.Has some SOB.Patient has been confused since AM.No fever or chills.No chest pain. -Past Medical History Hx Hypertension: Yes (2013) Hx Diabetes: Yes (pill control) Hx Arthritis: Yes (knees) - Surgical History H Cholecystectomy: Yes (2005) - Social History Smoking Status: Current Every Day Smoker Substance Use Type: Alcohol, Marijuana Fam History HTN - Medications Home Medications: Home Medications Medication Instructions Recorded Confirmed Last Taken Type Lisinopril 20 mg PO BID 01/20/15 01/18/17 01/17/17 History Aspirin EC [Aspirin Enteric Coated 325 mg PO QDAY 01/18/17 01/18/17 01/17/17 History TAB] Carvedilol 6.25 mg PO BID 01/18/17 01/18/17 01/17/17 History Gabapentin [Neurontin] 600 mg PO TID 01/18/17 01/18/17 01/17/17 History HYDROcodone/APAP 5-325 [[place] 1 each PO Q6HR PRN #20 tablet 07/29/17 Unknown Rx 5/325] Levofloxacin [Levaquin TAB] 500 mg PO ONCE #7 tablet 07/29/17 Unknown Rx Ondansetron [Zofran TAB] 4 mg PO Q8HR PRN #15 tablet 07/29/17 Unknown Rx metroNIDAZOLE [Flagyl TAB] 500 mg PO Q12HR #20 tablet 07/29/17 Unknown Rx Review of Systems Stated complaint: ALTERED MENTAL STATUS Other details as noted in HPI Comment: Unobtainable due to pts medical conditions (Limited secondary to patient status) Constitutional: denies: chills, fever Eyes: denies: eye pain, eye discharge, vision change ENT: denies: ear pain, throat pain Respiratory: shortness of breath. denies: cough, wheezing Cardiovascular: denies: chest pain, palpitations Endocrine: no symptoms reported Gastrointestinal: denies: abdominal pain, nausea, diarrhea Genitourinary: denies: urgency, dysuria Musculoskeletal: denies: back pain, joint swelling, arthralgia Skin: denies: rash, lesions Neurological: other (confusion). denies: headache, weakness, paresthesias Psychiatric: denies: anxiety, depression Hematological/Lymphatic: denies: easy bleeding, easy bruising Past History Social history: smoking Medications and Allergies Allergies Allergy/AdvReac Type Severity Reaction Status Date / Time No Known Allergies Allergy Verified 11/18/15 11:57 Home Medications Medication Instructions Recorded Confirmed Last Taken Type Lisinopril 20 mg PO BID 01/20/15 09/28/17 01/17/17 History Aspirin EC [Aspirin Enteric Coated 325 mg PO QDAY 01/18/17 09/28/17 01/17/17 History TAB] Carvedilol 6.25 mg PO BID 01/18/17 09/28/17 01/17/17 History Gabapentin [Neurontin] 600 mg PO TID 01/18/17 09/28/17 01/17/17 History Active Meds: Active Medications Aspirin (Aspirin) 325 mg PO QDAY [facility] Last Admin: 09/28/17 19:10 Dose: 325 mg Exam - Constitutional Vitals: Temp Pulse Resp BP Pulse Ox 98.8 F 53 L 28 H 183/83 99 09/28/17 19:58 09/28/17 19:16 09/28/17 19:46 09/28/17 19:46 09/28/17 19:46 General appearance: Present: no acute distress, well-nourished - EENT Eyes: Present: PERRL ENT: hearing intact, clear oral mucosa - Neck Neck: Present: supple, normal ROM - Respiratory Respiratory effort: normal Respiratory: bilateral: CTA - Cardiovascular Heart rate: 46 Heart Sounds: Present: S1 & S2. Absent: rub, click - Extremities Extremities: no ischemia, pulses intact, pulses symmetrical, No edema Peripheral Pulses: within normal limits - Abdominal General gastrointestinal: Present: soft, non-tender, non-distended, normal bowel sounds Male genitourinary: Present: normal - Rectal Rectal Exam: deferred - Integumentary Integumentary: Present: clear, warm, dry - Musculoskeletal Musculoskeletal: gait normal, strength equal bilaterally - Psychiatric Psychiatric: appropriate mood/affect, intact judgment & insight - Neurologic Neurologic: CNII-XII intact, moves all extremities - Allied Health Allied health notes reviewed: nursing, case management Results - Labs CBC & Chem 7: 09/28/17 16:47 09/28/17 17:05 Labs: Laboratory Last Values WBC 7.7 K/mm3 (4.5-11.0) 09/28/17 16:47 RBC 3.64 M/mm3 (3.65-5.03) L 09/28/17 16:47 Hgb 13.1 gm/dl (11.8-15.2) 09/28/17 16:47 Hct 38.7 % (35.5-45.6) 09/28/17 16:47 MCV 106 fl (84-94) H 09/28/17 16:47 MCH 36 pg (28-32) H 09/28/17 16:47 MCHC 34 % (32-34) 09/28/17 16:47 RDW 14.8 % (13.2-15.2) 09/28/17 16:47 Plt Count 250 K/mm3 (140-440) 09/28/17 16:47 Lymph % (Auto) 24.5 % (13.4-35.0) 09/28/17 16:47 Glenn % (Auto) 9.5 % (0.0-7.3) H 09/28/17 16:47 Eos % (Auto) 0.8 % (0.0-4.3) 09/28/17 16:47 Baso % (Auto) 0.7 % (0.0-1.8) 09/28/17 16:47 Lymph # 1.9 K/mm3 (1.2-5.4) 09/28/17 16:47 Glenn # 0.7 K/mm3 (0.0-0.8) 09/28/17 16:47 Eos # 0.1 K/mm3 (0.0-0.4) 09/28/17 16:47 Baso # 0.1 K/mm3 (0.0-0.1) 09/28/17 16:47 Seg Neutrophils % 64.5 % (40.0-70.0) 09/28/17 16:47 Seg Neutrophils # 5.0 K/mm3 (1.8-7.7) 09/28/17 16:47 PT 14.1 Sec. (12.2-14.9) 09/28/17 17:05 INR 1.04 (0.87-1.13) 09/28/17 17:05 APTT 26.3 Sec. (24.2-36.6) 09/28/17 17:05 POC ABG pH 7.489 (7.35-7.45) H 09/28/17 18:33 POC ABG pCO2 26.6 (35-45) L 09/28/17 18:33 POC ABG pO2 58 (80-105) L 09/28/17 18:33 POC ABG HCO3 20.2 09/28/17 18:33 POC ABG Total CO2 21 09/28/17 18:33 POC ABG O2 Sat 92 09/28/17 18:33 POC ABG Base Excess -3 09/28/17 18:33 FiO2 21 % 09/28/17 18:33 Sodium 143 mmol/L (137-145) 09/28/17 17:05 Potassium 4.1 mmol/L (3.6-5.0) 09/28/17 17:05 Chloride 101.1 mmol/L (98-107) 09/28/17 17:05 Carbon Dioxide 25 mmol/L (22-30) 09/28/17 17:05 Anion Gap 21 mmol/L 09/28/17 17:05 BUN 10 mg/dL (9-20) 09/28/17 17:05 Creatinine 1.0 mg/dL (0.8-1.5) 09/28/17 17:05 Estimated GFR > 60 ml/min 09/28/17 17:05 BUN/Creatinine Ratio 10 % 09/28/17 17:05 Glucose 156 mg/dL (75-100) H 09/28/17 17:05 POC Glucose 193 (70-105) H 09/28/17 16:16 Lactic Acid 1.40 mmol/L (0.7-2.0) 09/28/17 19:25 Calcium 9.2 mg/dL (8.4-10.2) 09/28/17 17:05 Magnesium 2.00 mg/dL (1.7-2.3) 09/28/17 16:47 Total Bilirubin 0.50 mg/dL (0.1-1.2) 09/28/17 17:05 Direct Bilirubin < 0.2 mg/dL (0-0.2) 09/28/17 17:05 Indirect Bilirubin 0.3 mg/dL 09/28/17 17:05 AST 14 units/L (5-40) 09/28/17 17:05 ALT 10 units/L (7-56) 09/28/17 17:05 Alkaline Phosphatase 49 units/L (35-129) 09/28/17 17:05 Ammonia 27.0 umol/L (25-60) 09/28/17 16:55 Total Creatine Kinase 173 units/L (55-170) H 09/28/17 17:05 CK-MB (CK-2) 2.9 ng/mL (0.0-4.0) 09/28/17 17:05 CK-MB (CK-2) Rel Index 1.6 (0-4) 09/28/17 17:05 Troponin T 0.038 ng/mL (0.00-0.029) H 09/28/17 17:05 NT-Pro-B Natriuret Pep 8683 pg/mL (0-900) H 09/28/17 17:05 Total Protein 7.3 g/dL (6.3-8.2) 09/28/17 17:05 Albumin 4.0 g/dL (3.9-5) 09/28/17 17:05 Albumin/Globulin Ratio 1.2 % 09/28/17 17:05 Triglycerides 113 mg/dL (2-149) 09/28/17 17:05 Cholesterol 139 mg/dL (50-199) 09/28/17 17:05 LDL Cholesterol Direct 69 mg/dL (50-130) 09/28/17 17:05 HDL Cholesterol 48 mg/dL (40-59) 09/28/17 17:05 Cholesterol/HDL Ratio 2.89 % 09/28/17 17:05 Lipase 24 units/L (13-60) 09/28/17 17:05 TSH 0.755 mlU/mL (0.270-4.200) 09/28/17 16:47 Urine Color Yellow (Yellow) 09/28/17 17:48 Urine Turbidity Clear (Clear) 09/28/17 17:48 Urine pH 6.0 (5.0-7.0) 09/28/17 17:48 Ur Specific [place] 1.019 (1.003-1.030) 09/28/17 17:48 Urine Protein >500 mg/dL (Negative) 09/28/17 17:48 Urine Glucose (UA) Neg mg/dL (Negative) 09/28/17 17:48 Urine Ketones 20 mg/dL (Negative) 09/28/17 17:48 Urine Blood Neg (Negative) 09/28/17 17:48 Urine Nitrite Neg (Negative) 09/28/17 17:48 Urine Bilirubin Neg (Negative) 09/28/17 17:48 Urine Urobilinogen 4.0 mg/dL (<2.0) 09/28/17 17:48 Ur Leukocyte Esterase Neg (Negative) 09/28/17 17:48 Urine WBC (Auto) 1.0 /HPF (0.0-6.0) 09/28/17 17:48 Urine RBC (Auto) 4.0 /HPF (0.0-6.0) 09/28/17 17:48 U Epithel Cells (Auto) 1.0 /HPF (0-13.0) 09/28/17 17:48 Urine Mucus Few /HPF 09/28/17 17:48 Salicylates < 0.3 mg/dL (2.8-20.0) L 09/28/17 17:05 Urine Opiates Screen Presumptive negative 09/28/17 17:48 Urine Methadone Screen Presumptive negative 09/28/17 17:48 Acetaminophen < 15.0 ug/mL (10.0-30.0) 09/28/17 16:47 Ur Barbiturates Screen Presumptive negative 09/28/17 17:48 Ur Phencyclidine Scrn Presumptive negative 09/28/17 17:48 Ur Amphetamines Screen Presumptive negative 09/28/17 17:48 U Benzodiazepines Scrn Presumptive negative 09/28/17 17:48 Urine Cocaine Screen Presumptive negative 09/28/17 17:48 U Marijuana (THC) Screen Presumptive positive 09/28/17 17:48 Drugs of Abuse Note Disclamer 09/28/17 17:48 Plasma/Serum Alcohol < 0.01 gm% (0-0.07) 09/28/17 16:47 - Imaging and Cardiology EKG: report reviewed (Complete Heart Block) Chest x-ray: report reviewed CT Scan - head: report reviewed (NAF) Assessment and Plan Advance Directives: Yes (Full code) VTE prophylaxis?: Chemical Plan of care discussed with patient/family: Yes - Patient Problems (1) Encephalopathy acute Current Visit: Yes Status: Acute Plan to address problem: Sec to ETOH withdrawal and COPD . consult requested.Ciia protocol initiated (2) Elevated troponin Current Visit: Yes Status: Acute Plan to address problem: Check serial enzymes and Lexiscan. (3) Acute exacerbation of CHF (congestive heart failure) Current Visit: Yes Status: Acute Qualifiers: Congestive heart failure type: combined Qualified Code(s): I50.43 - Acute on chronic combined systolic (congestive) and diastolic (congestive) heart failure Plan to address problem: BNP high IV lasix for now ECHO ordered for EF and Valve function (4) Complete heart block Current Visit: Yes Status: Chronic Plan to address problem: May need pacemaker.Will defer to cardiology. (5) HTN (hypertension) Current Visit: Yes Status: Chronic Qualifiers: Hypertension type: essential hypertension Qualified Code(s): I10 - Essential (primary) hypertension Plan to address problem: Will hold carvedilol because of complete heart block.Will initiate on losartan 100 mg po qd. (6) PN (peripheral neuropathy) Current Visit: Yes Status: Chronic Qualifiers: Peripheral neuropathy type: polyneuropathy, unspecified Qualified Code(s): G62.9 - Polyneuropathy, unspecified Plan to address problem: Cont Gabapentin (7) DVT prophylaxis Current Visit: Yes Status: Acute Plan to address problem: On Lovenox
[2017-09-28] MEDS ORDERED: COREG PO SCH (22:00)
[2017-09-28] MEDS ORDERED: ECOTRIN PO ONE (23:05)
[2017-09-28] MEDS: ECOTRIN PO SCH (23:21)
[2017-09-28] MEDS ORDERED: ZESTRIL ONE ×2 (23:36→23:39)
[2017-09-28] MEDS: ZESTRIL PO SCH (23:38)
[2017-09-29] MEDS ORDERED: XANAX PO ONE (01:55)
[2017-09-29] MEDS ORDERED: ATIVAN IV PRN ×2 (02:39)
[2017-09-29] MEDS ORDERED: ATIVAN PO PRN ×2 (02:39)
[2017-09-29] MEDS ORDERED: LIBRIUM PO PRN (02:39)
[2017-09-29] MEDS: COZAAR PO SCH ×2 (04:00→10:00)
[2017-09-29] MEDS: ATIVAN IV PRN ×2 (04:25→07:48)
[2017-09-29 04:39] LABS: Basophils % (Auto) 0.5 % (0.0-1.8); Eosinophils % (Auto) 0.6 % (0.0-4.3); Hemoglobin 13.3 gm/dl (11.8-15.2); Mean Corpuscular HGB Conc 33 % (32-34); Mean Corpuscular Hemoglobin 36 pg (28-32); Mean Corpuscular Volume 108 fl (84-94); Platelet Count 244 K/mm3 (140-440); Red Blood Count 3.69 M/mm3 (3.65-5.03); Red Cell Distribution Width 15.2 % (13.2-15.2); White Blood Count 8.8 K/mm3 (4.5-11.0)
[2017-09-29 05:04] LABS: Creatine Kinase MB 2.8 ng/mL (0.0-4.0)
[2017-09-29 05:06] LABS: Alanine Aminotransferase 8 units/L (7-56); Albumin 3.4 g/dL (3.9-5); Albumin/Globulin Ratio 1.1 %; Alkaline Phosphatase 42 units/L (35-129); Anion Gap 27 mmol/L; BUN/Creatinine Ratio 10; Blood Urea Nitrogen 9 mg/dL (9-20); Calcium 8.9 mg/dL (8.4-10.2); Carbon Dioxide 19 mmol/L (22-30); Chloride 101.6 mmol/L (98-107); Glucose 134 mg/dL (75-100); Potassium 4.1 mmol/L (3.6-5.0); Sodium 143 mmol/L (137-145); Total Protein 6.6 g/dL (6.3-8.2)
[2017-09-29 05:07] LABS: Albumin 3.4 g/dL (3.9-5); Bilirubin,Direct 0.2 mg/dL (0-0.2); Bilirubin,Indirect 0.5 mg/dL; Bilirubin,Total 0.7 mg/dL (0.1-1.2); Magnesium 1.9 mg/dL (1.7-2.3); Total Protein 6.8 g/dL (6.3-8.2)
[2017-09-29] MEDS: LASIX IV SCH (07:48)
[2017-09-29] MEDS: NEURONTIN PO SCH ×3 (08:00→22:18)
--- NOTE | 2017-09-29 09:27 | Consultation ---
History of Present Illness Consult date: 09/29/17 Consult reason: bradycardia History of present illness: 72 year old male admitted with altered mental status per his . Family is not really sure what exactly happened. states that patient drinks [address] head showing NAP. Patient is unresponsive, in restraints, agitated and medicated with ativan. Tele reviewed. Past History Past Medical History: diabetes, hypertension Past Surgical History: cholecystectomy Social history: smoking, alcohol abuse Family history: hypertension Medications and Allergies Allergies Allergy/AdvReac Type Severity Reaction Status Date / Time No Known Allergies Allergy Verified 11/18/15 11:57 Home Medications Medication Instructions Recorded Confirmed Last Taken Type Lisinopril 20 mg PO BID 01/20/15 09/28/17 01/17/17 History Aspirin EC [Aspirin Enteric Coated 325 mg PO QDAY 01/18/17 09/28/17 01/17/17 History TAB] Carvedilol 6.25 mg PO BID 01/18/17 09/28/17 01/17/17 History Gabapentin [Neurontin] 600 mg PO TID 01/18/17 09/28/17 01/17/17 History Active Meds: Active Medications Acetaminophen (Tylenol) 650 mg PO Q4H PRN PRN Reason: Pain MILD(1-3)/Fever >100.5/COTTO Aspirin (Ecotrin) 325 mg PO QDAY [facility] Last Admin: 09/28/17 23:21 Dose: Not Given Bisacodyl (Dulcolax) 10 mg PA QDAY PRN PRN Reason: Constipation unrelieved by MOM Chlordiazepoxide HCl (Librium) 100 mg PO Q1H PRN PRN Reason: CIWA-Ar 16-25 Enoxaparin Sodium (Lovenox) 40 mg SUB-Q QDAY [facility] Furosemide (Lasix) 40 mg IV QDAY@0800 [facility] Last Admin: 09/29/17 07:48 Dose: 40 mg Gabapentin (Neurontin) 600 mg PO TID [facility] Hydromorphone HCl (Dilaudid) 0.5 mg IV Q3H PRN PRN Reason: Pain , Severe (7-10) Sodium Chloride (Nacl 0.9% 1000 Ml) 1,000 mls @ 75 mls/hr IV DIRECT [facility] Lisinopril (Zestril) 20 mg PO BID [facility] Last Admin: 09/28/17 23:38 Dose: 20 mg Lorazepam (Ativan) 2 mg IV Q1H PRN PRN Reason: CIWA-Ar 8-15 Last Admin: 09/29/17 07:48 Dose: 2 mg Lorazepam (Ativan) 2 mg PO Q1H PRN PRN Reason: CIWA-Ar 8-15 Lorazepam (Ativan) 4 mg IV Q1H PRN PRN Reason: CIWA-Ar 16-25 Lorazepam (Ativan) 4 mg PO Q1H PRN PRN Reason: CIWA-Ar 16-25 Lorazepam (Ativan) 4 mg IV Q15MIN PRN PRN Reason: CIWA-Ar >25 Stop: 10/04/17 02:40 Losartan Potassium (Cozaar) 100 mg PO QDAY [facility] Last Admin: 09/29/17 04:00 Dose: 100 mg Magnesium Hydroxide (Milk Of Magnesia) 30 ml PO Q4H PRN PRN Reason: Constipation Ondansetron HCl (Zofran) 4 mg IV Q8H PRN PRN Reason: N/V unrelieved by Reglan Oxycodone/Acetaminophen (Percocet 5/325) 1 tab PO Q6H PRN PRN Reason: Pain, Moderate (4-6) Review of Systems ROS unobtainable: due to mental status Physical Examination Vital Signs Temp Pulse Resp BP Pulse Ox 99.4 F 48 L 20 178/80 97 09/28/17 16:14 09/28/17 16:14 09/28/17 16:14 09/28/17 16:14 09/28/17 16:14 General appearance: other (agitated and non-responsive) Neck: Negative: JVD/HJR Cardiac: Positive: Reg Rate and Rhythm Lungs: Positive: Normal Exam Abdomen: Positive: Soft Extremities: Absent: edema Results 09/29/17 04:06 09/29/17 04:06 Cardiac Enzymes 09/29/17 09/29/17 09/29/17 Range/Units 04:06 04:06 04:06 AST 14 14 (5-40) units/L CK-MB (CK-2) 2.8 (0.0-4.0) ng/mL CBC 09/29/17 Range/Units 04:06 WBC 8.8 (4.5-11.0) K/mm3 RBC 3.69 (3.65-5.03) M/mm3 Hgb 13.3 (11.8-15.2) gm/dl Hct 40.0 (35.5-45.6) % Plt Count 244 (140-440) K/mm3 Lymph # 1.9 (1.2-5.4) K/mm3 Delta # 1.0 H (0.0-0.8) K/mm3 Eos # 0.1 (0.0-0.4) K/mm3 Baso # 0.0 (0.0-0.1) K/mm3 Comprehensive Metabolic Panel 09/29/17 09/29/17 Range/Units 04:06 04:06 Sodium 143 (137-145) mmol/L Potassium 4.1 (3.6-5.0) mmol/L Chloride 101.6 (98-107) mmol/L Carbon Dioxide 19 L (22-30) mmol/L BUN 9 (9-20) mg/dL Creatinine 0.9 (0.8-1.5) mg/dL Glucose 134 H (75-100) mg/dL Calcium 8.9 (8.4-10.2) mg/dL Direct Bilirubin 0.2 (0-0.2) mg/dL Indirect Bilirubin 0.5 mg/dL AST 14 14 (5-40) units/L ALT 8 8 (7-56) units/L Alkaline Phosphatase 42 43 (35-129) units/L Total Protein 6.6 6.8 (6.3-8.2) g/dL Albumin 3.4 L 3.4 L (3.9-5) g/dL Assessment and Plan Abnormal cardiac rhythm Possible atrial tachycardia with physiologic atrioventricular block, and paroxysmal junctional complexes Normal TSH Non-ischemic cardiomyopathy Cath 12/2016 - Normal coronaries, LVEF 30% Non-specific troponin Altered mental status Systemic Hypertension Type II DM Alcohol abuse Marijuana abuse Recommendations: Will continue to monitor on tele underlying rhythm No need for temporary or permanent pacing as long as patient is stable Also patient is not candidate for any invasive procedure due to AMS and agitation Avoid any AV aguila blocking meds
--- NOTE | 2017-09-29 09:29 | XRay Report ---
AP CHEST: HISTORY: chest pain, complete heart block Compared to 07/23/15. Mild cardiomegaly and mild pulmonary edema in the lower lung zones has developed since the previous exam. Trace pleural effusions are likely present. Underlying emphysema is also suspected. No pneumothorax. IMPRESSION: Mild cardiomegaly and pulmonary edema. Possible trace pleural effusions. Probable underlying emphysema.
[2017-09-29] MEDS: LOVENOX SUB-Q SCH (10:00)
[2017-09-29] MEDS: ECOTRIN PO SCH (10:00)
[2017-09-29] MEDS: ZESTRIL PO SCH ×2 (10:00→22:17)
[2017-09-29 11:00] LABS: Creatine Kinase MB 3.4 ng/mL (0.0-4.0)
[2017-09-29] MEDS: NACL 0.9% 1000 ML 1,000 ML IV SCH (15:16)
--- NOTE | 2017-09-29 15:41 | Progress Note ---
Assessment and Plan Imaging and Cardiology EKG: report reviewed (Complete Heart Block) Chest x-ray: report reviewed CT Scan - head: report reviewed (NAF) Assessment and Plan Advance Directives: Yes (Full code) VTE prophylaxis?: Chemical Plan of care discussed with patient/family: Yes - Patient Problems (1) Encephalopathy acute Current Visit: Yes Status: Acute Plan to address problem: suspect ETOH withdrawal and COPD r/o 2/2 hypoxia . consult requested.Ciwa protocol initiated (2) Elevated troponin non specific elevation cardiology note reviewed Current Visit: Yes Status: Acute Plan to address problem: (3) Acute exacerbation of CHF (congestive heart failure) Current Visit: Yes Status: Acute Qualifiers: Congestive heart failure type: combined Qualified Code(s): I50.43 - Acute on chronic combined systolic (congestive) and diastolic (congestive) heart failure Plan to address problem: BNP high History of nonischemic cardiomyopathy IV lasix for now EF 30 % (4) Complete heart block Current Visit: Yes Status: Chronic Plan to address problem: cardiology note reviewed no need for pace maker (5) HTN (hypertension) Current Visit: Yes Status: Chronic Qualifiers: Hypertension type: essential hypertension Qualified Code(s): I10 - Essential (primary) hypertension Plan to address problem: Will hold carvedilol because of complete heart block.Will initiate on losartan 100 mg po qd. (6) PN (peripheral neuropathy) Current Visit: Yes Status: Chronic Qualifiers: Peripheral neuropathy type: polyneuropathy, unspecified Qualified Code(s): G62.9 - Polyneuropathy, unspecified Plan to address problem: Cont Gabapentin (7) DVT prophylaxis Current Visit: Yes Status: Acute Plan to address problem: On Lovenox Subjective Date of service: 09/29/17 Interval history: Patient is obtunded Responds somewhat to pain stimulus Is not in any acute distress Objective - Constitutional Vitals: Vital Signs - 12hr 09/29/17 09/29/17 09/29/17 03:44 04:54 08:10 Temperature 98.2 F 99.5 F Pulse Rate 85 61 Respiratory 18 22 22 Rate Blood Pressure 182/94 172/98 151/82 O2 Sat by Pulse 100 93 Oximetry General appearance: Present: no acute distress (unresponsive) - EENT Eyes: PERRL - Neck Neck: supple, no masses or JVD - Respiratory Respiratory: bilateral: CTA, diminished - Cardiovascular Rhythm: regular Heart Sounds: Present: S1 & S2 Extremities: No edema - Gastrointestinal General gastrointestinal: Present: soft, non-tender. Absent: hepatomegaly, splenomegaly - Integumentary Integumentary: clear - Neurologic Neurologic: other (unable to perform) - Labs CBC & Chem 7: 09/29/17 04:06 09/29/17 04:06 Labs: Abnormal lab results 09/29/17 09/29/17 09/29/17 Range/Units 04:06 04:06 04:06 MCV 108 H (84-94) fl MCH 36 H (28-32) pg Hand % (Auto) 11.1 H (0.0-7.3) % Hand # 1.0 H (0.0-0.8) K/mm3 Carbon Dioxide 19 L (22-30) mmol/L Glucose 134 H (75-100) mg/dL POC Glucose (70-105) Troponin T (0.00-0.029) ng/mL Albumin 3.4 L 3.4 L (3.9-5) g/dL 09/29/17 09/29/17 09/29/17 Range/Units 04:06 08:12 09:52 MCV (84-94) fl MCH (28-32) pg Hand % (Auto) (0.0-7.3) % Hand # (0.0-0.8) K/mm3 Carbon Dioxide (22-30) mmol/L Glucose (75-100) mg/dL POC Glucose 185 H (70-105) Troponin T 0.054 H D 0.115 H* D (0.00-0.029) ng/mL Albumin (3.9-5) g/dL 09/29/17 Range/Units 13:17 MCV (84-94) fl MCH (28-32) pg Hand % (Auto) (0.0-7.3) % Hand # (0.0-0.8) K/mm3 Carbon Dioxide (22-30) mmol/L Glucose (75-100) mg/dL POC Glucose 175 H (70-105) Troponin T (0.00-0.029) ng/mL Albumin (3.9-5) g/dL
[2017-09-29 16:08] LABS: Creatine Kinase MB 3.4 ng/mL (0.0-4.0)
[2017-09-30] MEDS: NACL 0.9% 1000 ML 1,000 ML IV SCH (05:53)
[2017-09-30 08:14] LABS: Hematocrit 34.8 % (35.5-45.6); Hemoglobin 11.7 gm/dl (11.8-15.2); Mean Corpuscular HGB Conc 34 % (32-34); Mean Corpuscular Hemoglobin 36 pg (28-32); Mean Corpuscular Volume 106 fl (84-94); Platelet Count 237 K/mm3 (140-440); Red Blood Count 3.28 M/mm3 (3.65-5.03); Red Cell Distribution Width 15.2 % (13.2-15.2); White Blood Count 8.1 K/mm3 (4.5-11.0)
[2017-09-30 08:32] LABS: Anion Gap 23 mmol/L; BUN/Creatinine Ratio 13; Blood Urea Nitrogen 13 mg/dL (9-20); Calcium 8.6 mg/dL (8.4-10.2); Carbon Dioxide 19 mmol/L (22-30); Chloride 106.5 mmol/L (98-107); Glucose 119 mg/dL (75-100); Potassium 3.9 mmol/L (3.6-5.0); Sodium 145 mmol/L (137-145)
--- NOTE | 2017-09-30 09:27 | Progress Note ---
Assessment and Plan Abnormal cardiac rhythm Episodes of complete heart block Episodes of second degree type I AV block with non-conducted PACs Normal TSH Non-ischemic cardiomyopathy Cath 12/2016 - Normal coronaries, LVEF 30% Non-specific troponin Altered mental status Systemic Hypertension Type II DM Alcohol abuse Marijuana abuse Recommendations: Continue to monitor on tele Avoid any AV aguila blocking meds Obtain echocardiogram Plan for pacemaker insertion on sunday depending on improvement in mental status (Dr Hammond aware of patient) Subjective Date of service: 09/30/17 Principal diagnosis: Bradyarrhythmias Interval history: Patient continues to be very somnolent Today he is more responsive to verbal stimulation Tele reviewed Objective Vital Signs Temp Pulse Pulse Resp Resp BP Pulse Ox 09/30/17 05:02 98.9 F 62 20 169/74 94 09/30/17 01:13 EST 98.3 F 19 154/76 09/29/17 23:00 49 L 09/29/17 22:17 56 L 163/70 09/29/17 22:00 50 L 16 09/29/17 21:19 32.1 F L 56 L 25 H 163/70 97 09/29/17 21:08 18 09/29/17 17:50 99.2 F 55 L 22 109/88 96 09/29/17 15:29 58 L 09/29/17 13:09 99.4 F 58 L 20 151/77 95 - Physical Examination Neck: Negative: JVD/HJR Cardiac: Positive: Reg Rate and Rhythm Lungs: Positive: Decreased Breath Sounds Abdomen: Positive: Soft Extremities: Absent: edema - Labs and Meds Cardiac Enzymes 09/29/17 09/29/17 Range/Units 09:52 14:57 CK-MB (CK-2) 3.4 3.4 (0.0-4.0) ng/mL CBC 09/30/17 Range/Units 07:29 WBC 8.1 (4.5-11.0) K/mm3 RBC 3.28 L (3.65-5.03) M/mm3 Hgb 11.7 L (11.8-15.2) gm/dl Hct 34.8 L (35.5-45.6) % Plt Count 237 (140-440) K/mm3 Comprehensive Metabolic Panel 09/30/17 Range/Units 07:29 Sodium 145 (137-145) mmol/L Potassium 3.9 (3.6-5.0) mmol/L Chloride 106.5 (98-107) mmol/L Carbon Dioxide 19 L (22-30) mmol/L BUN 13 (9-20) mg/dL Creatinine 1.0 (0.8-1.5) mg/dL Glucose 119 H (75-100) mg/dL Calcium 8.6 (8.4-10.2) mg/dL - Imaging and Cardiology EKG: report reviewed (Complete Heart Block)
[2017-09-30] MEDS: NEURONTIN PO SCH ×4 (10:00→22:27)
[2017-09-30] MEDS: COZAAR PO SCH (10:40)
[2017-09-30] MEDS: ECOTRIN PO SCH (10:41)
[2017-09-30] MEDS: ZESTRIL PO SCH ×2 (10:41→22:28)
[2017-09-30] MEDS: LOVENOX SUB-Q SCH (10:42)
[2017-09-30] MEDS: LASIX IV SCH ×2 (14:00→17:50)
--- NOTE | 2017-09-30 16:18 | Progress Note ---
Assessment and Plan Imaging and Cardiology EKG: report reviewed (Complete Heart Block) Chest x-ray: report reviewed CT Scan - head: report reviewed (NAF) Assessment and Plan Advance Directives: Yes (Full code) VTE prophylaxis?: Chemical Plan of care discussed with patient/family: Yes - Patient Problems (1) Encephalopathy acute Current Visit: Yes Status: Acute Plan to address problem: suspect ETOH withdrawal and COPD r/o 2/2 hypoxia . consult requested.Ciar protocol initiated (2) Elevated troponin non specific elevation cardiology note reviewed Current Visit: Yes Status: Acute Plan to address problem: (3) Acute exacerbation of CHF (congestive heart failure) Current Visit: Yes Status: Acute Qualifiers: Congestive heart failure type: combined Qualified Code(s): I50.43 - Acute on chronic combined systolic (congestive) and diastolic (congestive) heart failure Plan to address problem: BNP high History of nonischemic cardiomyopathy IV lasix for now EF 30 % (4) Complete heart block Current Visit: Yes Status: Chronic Plan to address problem: cardiology note reviewed Possible pacemaker placement on Sunday (5) HTN (hypertension) Current Visit: Yes Status: Chronic Qualifiers: Hypertension type: essential hypertension Qualified Code(s): I10 - Essential (primary) hypertension Plan to address problem: cont losartan 100 mg po qd. BB on hold (6) PN (peripheral neuropathy) Current Visit: Yes Status: Chronic Qualifiers: Peripheral neuropathy type: polyneuropathy, unspecified Qualified Code(s): G62.9 - Polyneuropathy, unspecified Plan to address problem: Cont Gabapentin (7) DVT prophylaxis Current Visit: Yes Status: Acute Plan to address problem: On Lovenox Subjective Date of service: 09/30/17 Principal diagnosis: Bradyarrhythmias Interval history: Patient is awake and alert Confused in the room He is oriented to his name but not age or present month According to his he was fully independent alert and managing his own financial accounts 2 weeks ago Patient denies any chest pain or shortness of breath He denies any abdominal pain nausea or vomitings Objective - Constitutional Vitals: Vital Signs - 12hr 09/30/17 09/30/17 09/30/17 05:02 08:06 10:00 Temperature 98.9 F 97.6 F Pulse Rate 62 48 L Pulse Rate [ 54 L Right Dorsalis Pedis] Respiratory 20 20 18 Rate Blood Pressure 169/74 155/63 O2 Sat by Pulse 94 99 Oximetry 09/30/17 09/30/17 09/30/17 10:40 10:41 14:00 Temperature Pulse Rate 54 L 54 L 54 L Pulse Rate [ Right Dorsalis Pedis] Respiratory Rate Blood Pressure O2 Sat by Pulse Oximetry General appearance: Present: no acute distress - EENT Eyes: PERRL, EOM intact ENT: hearing intact, clear oral mucosa - Neck Neck: supple, normal ROM, no masses or JVD - Respiratory Respiratory effort: normal Respiratory: bilateral: CTA, diminished - Cardiovascular Rhythm: regular Heart Sounds: Present: S1 & S2 Extremities: No edema - Gastrointestinal General gastrointestinal: Present: soft, non-tender. Absent: hepatomegaly, splenomegaly - Integumentary Integumentary: clear - Musculoskeletal Musculoskeletal: strength equal bilaterally - Neurologic Neurologic: no focal deficits - Psychiatric Psychiatric: other (confused) - Labs CBC & Chem 7: 09/30/17 07:29 09/30/17 07:29 Labs: Abnormal lab results 09/29/17 09/29/17 09/30/17 Range/Units 17:54 21:15 07:29 RBC 3.28 L (3.65-5.03) M/mm3 Hgb 11.7 L (11.8-15.2) gm/dl Hct 34.8 L (35.5-45.6) % MCV 106 H (84-94) fl MCH 36 H (28-32) pg Carbon Dioxide (22-30) mmol/L Glucose (75-100) mg/dL POC Glucose 135 H 125 H (70-105) 09/30/17 09/30/17 09/30/17 Range/Units 07:29 09:09 12:40 RBC (3.65-5.03) M/mm3 Hgb (11.8-15.2) gm/dl Hct (35.5-45.6) % MCV (84-94) fl MCH (28-32) pg Carbon Dioxide 19 L (22-30) mmol/L Glucose 119 H (75-100) mg/dL POC Glucose 127 H 145 H (70-105)
[2017-10-01] MEDS: NEURONTIN PO SCH ×3 (08:00→22:19)
--- NOTE | 2017-10-01 10:30 | Progress Note ---
Assessment and Plan Abnormal cardiac rhythm Episodes of complete heart block Episodes of second degree type I AV block with non-conducted PACs Normal TSH Non-ischemic cardiomyopathy Cath 12/2016 - Normal coronaries, LVEF 30% EF 20-25% on echo this admission Non-specific troponin Altered mental status Hypertension Type II DM Alcohol abuse Marijuana abuse Recommendations: Continue to monitor on tele Avoid any AV aguila blocking meds Subjective Date of service: 10/01/17 Principal diagnosis: Bradyarrhythmias Interval history: Patient awake and alert. He denies chest pain, shortness of breath and dizziness. Objective Vital Signs Temp Pulse Pulse Resp Resp BP Pulse Ox 10/01/17 07:45 97.6 F 56 L 20 169/73 98 10/01/17 05:08 99.7 F H 58 L 20 175/75 96 10/01/17 00:19 99.8 F H 58 L 22 169/86 96 09/30/17 22:28 47 L 137/67 09/30/17 22:19 56 L 09/30/17 22:00 55 L 18 09/30/17 21:31 18 09/30/17 19:39 97.3 F L 47 L 19 137/67 99 09/30/17 17:20 98.9 F 53 L 20 147/70 99 09/30/17 14:19 56 L 09/30/17 14:00 54 L 09/30/17 12:36 98.5 F 51 L 20 148/69 100 09/30/17 10:41 54 L 09/30/17 10:40 54 L - Physical Examination General: No Apparent Distress Cardiac: Positive: Regular Rhythm Abdomen: Positive: Soft Extremities: Absent: edema - Imaging and Cardiology EKG: report reviewed (Complete Heart Block)
[2017-10-01] MEDS: COZAAR PO SCH (11:55)
[2017-10-01] MEDS: ECOTRIN PO SCH (11:56)
[2017-10-01] MEDS: ZESTRIL PO SCH ×2 (11:56→22:18)
[2017-10-01] MEDS: LOVENOX SUB-Q SCH (11:57)
[2017-10-01] MEDS: LASIX IV SCH (15:54)
--- NOTE | 2017-10-01 19:46 | Progress Note ---
Assessment and Plan Assessment and plan: 72 yo AAM with HTN, peripheral neuropathy, alcohol abuse, admitted for altered mental status and found to arrhythmia with episodes of complete heart block 1. Cardiac arrhythmia EKG with second degree AV block and episodes of complete heart block with junctional escape rhythm with wide QRS complexes Electrolytes, TSH wnl ECHO EF 20-25% Cath 12/2016 normal coronaries and EF 30% Hold any AV aguila blocking agents Monitor on tele Cardiology plans pacemaker placement 2. Nonischemic cardiomyopathy/Acute on chronic systolic heart failure See above discussion Possible related with alcohol abuse BB held due to heart block Continue ACEI, diuretic 3. Non-specific troponin elevation 4. Acute encephalopathy Likely secondary to alcohol abuse/withdrawal and drug use UDS positive for marijuana Placed on [facility] protocol Give banana bag 5. Alcohol abuse 6. Drug abuse 7. HTN Continue home medications except BB Monitor BP and adjust regimen as needed 8. Hyperglycemia Stress reaction, A1c 6 9. Peripheral neuropathy Continue gabapentin 10. DVT prophylaxis History Interval history: slightly confused, with no specific complaints son at [facility] Hospitalist Physical - Constitutional Vitals: Temp Pulse Resp BP Pulse Ox 98.3 F 54 L 18 139/55 95 10/01/17 19:16 10/01/17 19:16 10/01/17 19:16 10/01/17 19:16 10/01/17 19:16 General appearance: Present: no acute distress, well-nourished - EENT Eyes: Present: PERRL, EOM intact. Absent: scleral icterus, conjunctival injection - Neck Neck: Present: supple. Absent: enlarged thyroid, masses or JVD - Respiratory Respiratory effort: normal Respiratory: bilateral: CTA, negative: rhonchi, wheezing - Cardiovascular Rhythm: other (bradycardic) Heart Sounds: Present: S1 & S2. Absent: systolic murmur - Extremities Extremities: no ischemia - Abdominal General gastrointestinal: soft, non-tender, non-distended, normal bowel sounds - Psychiatric Psychiatric: other (confused) - Neurologic Neurologic: CNII-XII intact, no focal deficits Results - Labs CBC & Chem 7: 09/30/17 07:29 10/04/17 06:24 Labs: Laboratory Last Values WBC 8.1 K/mm3 (4.5-11.0) 09/30/17 07:29 RBC 3.28 M/mm3 (3.65-5.03) L 09/30/17 07:29 Hgb 11.7 gm/dl (11.8-15.2) L 09/30/17 07:29 Hct 34.8 % (35.5-45.6) L 09/30/17 07:29 MCV 106 fl (84-94) H 09/30/17 07:29 MCH 36 pg (28-32) H 09/30/17 07: MCHC 34 % (32-34) 09/30/17 07: RDW 15.2 % (13.2-15.2) 09/30/17 07:29 Plt Count 237 K/mm3 (140-440) 09/30/17 07:29 Lymph % (Auto) 21.1 % (13.4-35.0) 09/29/17 04:06 [place] % (Auto) 11.1 % (0.0-7.3) H 09/29/17 04:06 Eos % (Auto) 0.6 % (0.0-4.3) 09/29/17 04:06 Baso % (Auto) 0.5 % (0.0-1.8) 09/29/17 04:06 Lymph # 1.9 K/mm3 (1.2-5.4) 09/29/17 04:06 [place] # 1.0 K/mm3 (0.0-0.8) H 09/29/17 04:06 Eos # 0.1 K/mm3 (0.0-0.4) 09/29/17 04:06 Baso # 0.0 K/mm3 (0.0-0.1) 09/29/17 04:06 Seg Neutrophils % 66.7 % (40.0-70.0) 09/29/17 04:06 Seg Neutrophils # 5.9 K/mm3 (1.8-7.7) 09/29/17 04:06 PT 14.1 Sec. (12.2-14.9) 09/28/17 17:05 INR 1.04 (0.87-1.13) 09/28/17 17:05 APTT 26.3 Sec. (24.2-36.6) 09/28/17 17:05 POC ABG pH 7.489 (7.35-7.45) H 09/28/17 18:33 POC ABG pCO2 26.6 (35-45) L 09/28/17 18:33 POC ABG pO2 58 (80-105) L 09/28/17 18:33 POC ABG HCO3 20.2 09/28/17 18:33 POC ABG Total CO2 21 09/28/17 18:33 POC ABG O2 Sat 92 09/28/17 18:33 POC ABG Base Excess -3 09/28/17 18:33 FiO2 21 % 09/28/17 18:33 Sodium 145 mmol/L (137-145) 09/30/17 07:29 Potassium 3.9 mmol/L (3.6-5.0) 09/30/17 07:29 Chloride 106.5 mmol/L (98-107) 09/30/17 07:29 Carbon Dioxide 19 mmol/L (22-30) L 09/30/17 07:29 Anion Gap 23 mmol/L 09/30/17 07:29 BUN 13 mg/dL (9-20) 09/30/17 07:29 Creatinine 1.0 mg/dL (0.8-1.5) 09/30/17 07:29 Estimated GFR > 60 ml/min 09/30/17 07:29 BUN/Creatinine Ratio 13 % 09/30/17 07:29 Glucose 119 mg/dL (75-100) H 09/30/17 07:29 POC Glucose 142 (70-105) H 10/01/17 16:36 Hemoglobin A1c 6.0 % (4-6) 09/28/17 17:09 Lactic Acid 1.40 mmol/L (0.7-2.0) 09/28/17 19:25 Calcium 8.6 mg/dL (8.4-10.2) 09/30/17 07:29 Magnesium 1.90 mg/dL (1.7-2.3) 09/29/17 04:06 Total Bilirubin 0.70 mg/dL (0.1-1.2) 09/29/17 04:06 Direct Bilirubin 0.2 mg/dL (0-0.2) 09/29/17 04:06 Indirect Bilirubin 0.5 mg/dL 09/29/17 04:06 AST 14 units/L (5-40) 09/29/17 04:06 ALT 8 units/L (7-56) 09/29/17 04:06 Alkaline Phosphatase 43 units/L (35-129) 09/29/17 04:06 Ammonia 55.0 umol/L (25-60) 09/29/17 04:23 Total Creatine Kinase 150 units/L (55-170) 09/29/17 14:57 CK-MB (CK-2) 3.4 ng/mL (0.0-4.0) 09/29/17 14:57 CK-MB (CK-2) Rel Index 2.2 (0-4) 09/29/17 14:57 Troponin T 0.094 ng/mL (0.00-0.029) H 09/29/17 14:57 NT-Pro-B Natriuret Pep 8683 pg/mL (0-900) H 09/28/17 17:05 Total Protein 6.8 g/dL (6.3-8.2) 09/29/17 04:06 Albumin 3.4 g/dL (3.9-5) L 09/29/17 04:06 Albumin/Globulin Ratio 1.0 % 09/29/17 04:06 Triglycerides 113 mg/dL (2-149) 09/28/17 17:05 Cholesterol 139 mg/dL (50-199) 09/28/17 17:05 LDL Cholesterol Direct 69 mg/dL (50-130) 09/28/17 17:05 HDL Cholesterol 48 mg/dL (40-59) 09/28/17 17:05 Cholesterol/HDL Ratio 2.89 % 09/28/17 17:05 Lipase 24 units/L (13-60) 09/28/17 17:05 TSH 0.755 mlU/mL (0.270-4.200) 09/28/17 16:47 Urine Color Yellow (Yellow) 09/28/17 17:48 Urine Turbidity Clear (Clear) 09/28/17 17:48 Urine pH 6.0 (5.0-7.0) 09/28/17 17:48 Ur Specific [place] 1.019 (1.003-1.030) 09/28/17 17:48 Urine Protein >500 mg/dL (Negative) 09/28/17 17:48 Urine Glucose (UA) Neg mg/dL (Negative) 09/28/17 17:48 Urine Ketones 20 mg/dL (Negative) 09/28/17 17:48 Urine Blood Neg (Negative) 09/28/17 17:48 Urine Nitrite Neg (Negative) 09/28/17 17:48 Urine Bilirubin Neg (Negative) 09/28/17 17:48 Urine Urobilinogen 4.0 mg/dL (<2.0) 09/28/17 17:48 Ur Leukocyte Esterase Neg (Negative) 09/28/17 17:48 Urine WBC (Auto) 1.0 /HPF (0.0-6.0) 09/28/17 17:48 Urine RBC (Auto) 4.0 /HPF (0.0-6.0) 09/28/17 17:48 U Epithel Cells (Auto) 1.0 /HPF (0-13.0) 09/28/17 17:48 Urine Mucus Few /HPF 09/28/17 17:48 Salicylates < 0.3 mg/dL (2.8-20.0) L 09/28/17 17:05 Urine Opiates Screen Presumptive negative 09/28/17 17:48 Urine Methadone Screen Presumptive negative 09/28/17 17:48 Acetaminophen < 15.0 ug/mL (10.0-30.0) 09/28/17 16:47 Ur Barbiturates Screen Presumptive negative 09/28/17 17:48 Ur Phencyclidine Scrn Presumptive negative 09/28/17 17:48 Ur Amphetamines Screen Presumptive negative 09/28/17 17:48 U Benzodiazepines Scrn Presumptive negative 09/28/17 17:48 Urine Cocaine Screen Presumptive negative 09/28/17 17:48 U Marijuana (THC) Screen Presumptive positive 09/28/17 17:48 Drugs of Abuse Note Disclamer 09/28/17 17:48 Plasma/Serum Alcohol < 0.01 gm% (0-0.07) 09/28/17 16:47
[2017-10-02] MEDS: LOVENOX SUB-Q SCH (10:30)
[2017-10-02] MEDS: COZAAR PO SCH (10:30)
[2017-10-02] MEDS: ECOTRIN PO SCH (10:30)
[2017-10-02] MEDS: ZESTRIL PO SCH ×2 (10:30→21:35)
[2017-10-02] MEDS: LASIX IV SCH (10:32)
[2017-10-02] MEDS: NEURONTIN PO SCH ×3 (10:32→21:35)
--- NOTE | 2017-10-02 15:39 | Progress Note ---
Assessment and Plan Altered mental status: Improving. Patient and family have refused neurology evaluation. Complete heart block with stable junctional escape rhythm in the 50s. Non-ischemic cardiomyopathy Cath 12/2016 - Normal coronaries, LVEF 30% EF 20-25% on echo this admission He is currently not a candidate for primary prevention ICD as he continues to drink alcohol regularly which may be the cause of his cardiomyopathy and he has unfortunately been non-compliant. Non-specific troponin Altered mental status Hypertension Type II DM Alcoholism Patient felt to be going through alcohol withdrawl during current hospitalization. Marijuana abuse Recommendations: Once neurologic function has improved to baseline, will plan for dual chamber PPM implant - tentatively will plan for afternoon. Continue medical therapy and add coreg after PPM implant. Counseled patient to refrain from alcohol and illicit drug use If LV function does not improve despite maximal tolerated guideline directed medical therapy for > 3 months and abstaining from alcohol, we can eventually upgrade pacemaker to BiVentricular ICD ([employer]IN[employer]-D) Subjective Date of service: 10/02/17 Principal diagnosis: Bradyarrhythmias Interval history: Patient has no cardiac complaints. Telemetry rhythm strips continue to show sinus tachycardia with complete heart block and junctional escape rhythm in the 60s. Objective Vital Signs Temp Pulse Pulse Resp Resp BP Pulse Ox 10/02/17 11:53 99.2 F 53 L 18 159/75 100 10/02/17 10:14 53 L 10/02/17 10:00 53 L 18 97 10/02/17 08:21 52 L 99 10/02/17 08:20 99.2 F 53 L 18 169/72 98 10/02/17 05:56 55 L 10/02/17 03:51 98.0 F 54 L 18 158/66 100 10/01/17 23:15 98.2 F 57 L 18 158/68 100 10/01/17 22:18 58 L 136/68 10/01/17 22:00 57 L 18 97 10/01/17 19:16 98.3 F 54 L 18 139/55 95 10/01/17 16:17 97.7 F 52 L 24 154/62 95 - Physical Examination General: No Apparent Distress Neck: Negative: JVD/HJR Cardiac: Positive: Regular Rhythm (regular bradycardic rhythm) Lungs: Positive: clear to auscultation, Normal Breath Sounds Abdomen: Positive: Soft, Active Bowel Sounds Extremities: Absent: edema
--- NOTE | 2017-10-02 15:54 | Progress Note ---
Assessment and Plan Assessment and plan: 72 yo AAM with HTN, peripheral neuropathy, alcohol abuse, admitted for altered mental status and found to arrhythmia with episodes of complete heart block 1. Cardiac arrhythmia EKG with second degree AV block and episodes of complete heart block with junctional escape rhythm with wide QRS complexes Electrolytes, TSH wnl ECHO EF 20-25% Cath 12/2016 normal coronaries and EF 30% Holding any AV aguila blocking agents Monitor on tele Cardiology plans pacemaker placement; considered not a candidate for biventricular ICD due to his ongoing alcohol abuse 2. Nonischemic cardiomyopathy/Acute on chronic systolic heart failure See above discussion Possible related with alcohol abuse BB held due to heart block Continue ACEI, diuretic 3. Non-specific troponin elevation 4. Acute encephalopathy Likely secondary to alcohol abuse/withdrawal and drug use UDS positive for marijuana Placed on [facility] protocol S/p banana bag 5. Alcohol abuse 6. Drug abuse 7. HTN Continue home medications except BB Monitor BP and adjust regimen as needed 8. Hyperglycemia Stress reaction, A1c 6 9. Peripheral neuropathy Continue gabapentin 10. DVT prophylaxis Hospitalist Physical - Constitutional Vitals: Temp Pulse Resp BP Pulse Ox 99.2 F 53 L 18 159/75 100 10/02/17 11:53 10/02/17 11:53 10/02/17 11:53 10/02/17 11:53 10/02/17 11:53 General appearance: Present: no acute distress Results - Labs CBC & Chem 7: 09/30/17 07:29 10/04/17 06:24 Labs: Laboratory Last Values WBC 8.1 K/mm3 (4.5-11.0) 09/30/17 07:29 RBC 3.28 M/mm3 (3.65-5.03) L 09/30/17 07:29 Hgb 11.7 gm/dl (11.8-15.2) L 09/30/17 07:29 Hct 34.8 % (35.5-45.6) L 09/30/17 07:29 MCV 106 fl (84-94) H 09/30/17 07:29 MCH 36 pg (28-32) H 09/30/17 07:29 MCHC 34 % (32-34) 09/30/17 07:29 RDW 15.2 % (13.2-15.2) 09/30/17 07:29 Plt Count 237 K/mm3 (140-440) 09/30/17 07:29 Lymph % (Auto) 21.1 % (13.4-35.0) 09/29/17 04:06 [place] % (Auto) 11.1 % (0.0-7.3) H 09/29/17 04:06 Eos % (Auto) 0.6 % (0.0-4.3) 09/29/17 04:06 Baso % (Auto) 0.5 % (0.0-1.8) 09/29/17 04:06 Lymph # 1.9 K/mm3 (1.2-5.4) 09/29/17 04:06 [place] # 1.0 K/mm3 (0.0-0.8) H 09/29/17 04:06 Eos # 0.1 K/mm3 (0.0-0.4) 09/29/17 04:06 Baso # 0.0 K/mm3 (0.0-0.1) 09/29/17 04:06 Seg Neutrophils % 66.7 % (40.0-70.0) 09/29/17 04:06 Seg Neutrophils # 5.9 K/mm3 (1.8-7.7) 09/29/17 04:06 PT 14.1 Sec. (12.2-14.9) 09/28/17 17:05 INR 1.04 (0.87-1.13) 09/28/17 17:05 APTT 26.3 Sec. (24.2-36.6) 09/28/17 17:05 POC ABG pH 7.489 (7.35-7.45) H 09/28/17 18:33 POC ABG pCO2 26.6 (35-45) L 09/28/17 18:33 POC ABG pO2 58 (80-105) L 09/28/17 18:33 POC ABG HCO3 20.2 09/28/17 18:33 POC ABG Total CO2 21 09/28/17 18:33 POC ABG O2 Sat 92 09/28/17 18:33 POC ABG Base Excess -3 09/28/17 18:33 FiO2 21 % 09/28/17 18:33 Sodium 145 mmol/L (137-145) 09/30/17 07:29 Potassium 3.9 mmol/L (3.6-5.0) 09/30/17 07:29 Chloride 106.5 mmol/L (98-107) 09/30/17 07:29 Carbon Dioxide 19 mmol/L (22-30) L 09/30/17 07:29 Anion Gap 23 mmol/L 09/30/17 07:29 BUN 13 mg/dL (9-20) 09/30/17 07:29 Creatinine 1.0 mg/dL (0.8-1.5) 09/30/17 07:29 Estimated GFR > 60 ml/min 09/30/17 07:29 BUN/Creatinine Ratio 13 % 09/30/17 07:29 Glucose 119 mg/dL (75-100) H 09/30/17 07:29 POC Glucose 126 (70-105) H 10/02/17 08:26 Hemoglobin A1c 6.0 % (4-6) 09/28/17 17:09 Lactic Acid 1.40 mmol/L (0.7-2.0) 09/28/17 19:25 Calcium 8.6 mg/dL (8.4-10.2) 09/30/17 07:29 Magnesium 1.90 mg/dL (1.7-2.3) 09/29/17 04:06 Total Bilirubin 0.70 mg/dL (0.1-1.2) 09/29/17 04:06 Direct Bilirubin 0.2 mg/dL (0-0.2) 09/29/17 04:06 Indirect Bilirubin 0.5 mg/dL 09/29/17 04:06 AST 14 units/L (5-40) 09/29/17 04:06 ALT 8 units/L (7-56) 09/29/17 04:06 Alkaline Phosphatase 43 units/L (35-129) 09/29/17 04:06 Ammonia 55.0 umol/L (25-60) 09/29/17 04:23 Total Creatine Kinase 150 units/L (55-170) 09/29/17 14:57 CK-MB (CK-2) 3.4 ng/mL (0.0-4.0) 09/29/17 14:57 CK-MB (CK-2) Rel Index 2.2 (0-4) 09/29/17 14:57 Troponin T 0.094 ng/mL (0.00-0.029) H 09/29/17 14:57 NT-Pro-B Natriuret Pep 8683 pg/mL (0-900) H 09/28/17 17:05 Total Protein 6.8 g/dL (6.3-8.2) 09/29/17 04:06 Albumin 3.4 g/dL (3.9-5) L 09/29/17 04:06 Albumin/Globulin Ratio 1.0 % 09/29/17 04:06 Triglycerides 113 mg/dL (2-149) 09/28/17 17:05 Cholesterol 139 mg/dL (50-199) 09/28/17 17:05 LDL Cholesterol Direct 69 mg/dL (50-130) 09/28/17 17:05 HDL Cholesterol 48 mg/dL (40-59) 09/28/17 17:05 Cholesterol/HDL Ratio 2.89 % 09/28/17 17:05 Lipase 24 units/L (13-60) 09/28/17 17:05 TSH 0.755 mlU/mL (0.270-4.200) 09/28/17 16:47 Urine Color Yellow (Yellow) 09/28/17 17:48 Urine Turbidity Clear (Clear) 09/28/17 17:48 Urine pH 6.0 (5.0-7.0) 09/28/17 17:48 Ur Specific [place] 1.019 (1.003-1.030) 09/28/17 17:48 Urine Protein >500 mg/dL (Negative) 09/28/17 17:48 Urine Glucose (UA) Neg mg/dL (Negative) 09/28/17 17:48 Urine Ketones 20 mg/dL (Negative) 09/28/17 17:48 Urine Blood Neg (Negative) 09/28/17 17:48 Urine Nitrite Neg (Negative) 09/28/17 17:48 Urine Bilirubin Neg (Negative) 09/28/17 17:48 Urine Urobilinogen 4.0 mg/dL (<2.0) 09/28/17 17:48 Ur Leukocyte Esterase Neg (Negative) 09/28/17 17:48 Urine WBC (Auto) 1.0 /HPF (0.0-6.0) 09/28/17 17:48 Urine RBC (Auto) 4.0 /HPF (0.0-6.0) 09/28/17 17:48 U Epithel Cells (Auto) 1.0 /HPF (0-13.0) 09/28/17 17:48 Urine Mucus Few /HPF 09/28/17 17:48 Salicylates < 0.3 mg/dL (2.8-20.0) L 09/28/17 17:05 Urine Opiates Screen Presumptive negative 09/28/17 17:48 Urine Methadone Screen Presumptive negative 09/28/17 17:48 Acetaminophen < 15.0 ug/mL (10.0-30.0) 09/28/17 16:47 Ur Barbiturates Screen Presumptive negative 09/28/17 17:48 Ur Phencyclidine Scrn Presumptive negative 09/28/17 17:48 Ur Amphetamines Screen Presumptive negative 09/28/17 17:48 U Benzodiazepines Scrn Presumptive negative 09/28/17 17:48 Urine Cocaine Screen Presumptive negative 09/28/17 17:48 U Marijuana (THC) Screen Presumptive positive 09/28/17 17:48 Drugs of Abuse Note Disclamer 09/28/17 17:48 Plasma/Serum Alcohol < 0.01 gm% (0-0.07) 09/28/17 16:47
[2017-10-03] MEDS: ZESTRIL PO SCH ×2 (10:36→23:09)
[2017-10-03] MEDS: NEURONTIN PO SCH ×3 (10:36→23:09)
[2017-10-03] MEDS: COZAAR PO SCH (10:36)
[2017-10-03] MEDS: ECOTRIN PO SCH (10:37)
[2017-10-03] MEDS: LOVENOX SUB-Q SCH (10:37)
[2017-10-03] MEDS: LASIX IV SCH (10:37)
--- NOTE | 2017-10-03 10:55 | Progress Note ---
Assessment and Plan Abnormal cardiac rhythm Episodes of complete heart block Episodes of second degree type I AV block with non-conducted PACs Normal TSH Non-ischemic cardiomyopathy Cath 12/2016 - Normal coronaries, LVEF 30% Non-specific troponin Altered mental status Awaiting neurology input Systemic Hypertension Type II DM Alcohol abuse Marijuana abuse Recommendations: Continue to monitor on tele Avoid any AV aguila blocking meds Plan for pacemaker insertion pending neurology feedback Subjective Date of service: 10/03/17 Principal diagnosis: Bradyarrhythmias Interval history: Patient is more awake this morning Neuro assessment is still pending Objective Vital Signs Temp Pulse Pulse Resp BP BP Pulse Ox 10/03/17 08:42 99.2 F 53 L 18 167/76 97 10/03/17 08:21 54 L 54 L 10/03/17 05:20 99.1 F 53 L 20 141/66 94 10/03/17 00:16 99.6 F 55 L 19 123/62 98 10/02/17 22:14 57 L 10/02/17 21:39 57 L 18 10/02/17 21:35 57 L 127/65 10/02/17 20:25 98.6 F 93 H 20 178/59 93 10/02/17 20:18 98.6 F 58 L 21 127/65 95 10/02/17 18:08 98.4 F 53 L 18 125/67 99 10/02/17 17:21 53 L 125/67 99 10/02/17 11:53 99.2 F 53 L 18 159/75 100 - Physical Examination General: No Apparent Distress Neck: Negative: JVD/HJR Cardiac: Positive: Reg Rate and Rhythm Lungs: Positive: Decreased Breath Sounds Abdomen: Positive: Soft, Active Bowel Sounds Extremities: Absent: edema - Imaging and Cardiology EKG: report reviewed (Complete Heart Block)
--- NOTE | 2017-10-03 19:29 | Progress Note ---
Assessment and Plan Assessment and plan: 72 yo AAM with HTN, peripheral neuropathy, alcohol abuse, admitted for altered mental status and found to arrhythmia with episodes of complete heart block 1. Cardiac arrhythmia EKG with second degree AV block and episodes of complete heart block with junctional escape rhythm with wide QRS complexes Electrolytes, TSH wnl ECHO EF 20-25% Cath 12/2016 normal coronaries and EF 30% Holding any AV aguila blocking agents Monitor on tele Cardiology plans pacemaker placement after neuro eval and clearance; considered not a candidate for biventricular ICD due to his ongoing alcohol abuse 2. Nonischemic cardiomyopathy/Acute on chronic systolic heart failure See above discussion Possible related with alcohol abuse BB held due to heart block Continue ACEI, diuretic 3. Non-specific troponin elevation 4. Acute encephalopathy Likely secondary to alcohol abuse/withdrawal and drug use UDS positive for marijuana Placed on CIWA protocol S/p banana bag 5. Alcohol abuse 6. Drug abuse 7. HTN Continue home medications except BB Monitor BP and adjust regimen as needed 8. Hyperglycemia Stress reaction, A1c 6 9. Peripheral neuropathy Continue gabapentin 10. DVT prophylaxis History Interval history: doing well, no complaints present at bedside awainting neuro eval requested by medical accounting clerk prior to pacemaker placement Hospitalist Physical - Constitutional Vitals: Temp Pulse Resp BP Pulse Ox 98.5 F 54 L 18 135/58 96 10/03/17 17:09 10/03/17 17:09 10/03/17 17:09 10/03/17 17:09 10/03/17 17:09 General appearance: Present: no acute distress, well-nourished - EENT Eyes: Present: PERRL, EOM intact - Neck Neck: Present: supple, normal ROM. Absent: masses or JVD - Respiratory Respiratory effort: normal Respiratory: bilateral: CTA, negative: rhonchi, wheezing - Cardiovascular Rhythm: other (bradycardia) Heart Sounds: Present: S1 & S2. Absent: systolic murmur - Extremities Extremities: no ischemia - Abdominal General gastrointestinal: soft, non-tender, non-distended, normal bowel sounds - Psychiatric Psychiatric: cooperative, other (slighly confused) - Neurologic Neurologic: CNII-XII intact, no focal deficits Results - Labs CBC & Chem 7: 10/05/17 10:15 10/04/17 06:24 Labs: Laboratory Last Values WBC 8.1 K/mm3 (4.5-11.0) 09/30/17 07:29 RBC 3.28 M/mm3 (3.65-5.03) L 09/30/17 07:29 Hgb 11.7 gm/dl (11.8-15.2) L 09/30/17 07:29 Hct 34.8 % (35.5-45.6) L 09/30/17 07:29 MCV 106 fl (84-94) H 09/30/17 07:29 MCH 36 pg (28-32) H 09/30/17 07:29 MCHC 34 % (32-34) 09/30/17 07:29 RDW 15.2 % (13.2-15.2) 09/30/17 07:29 Plt Count 237 K/mm3 (140-440) 09/30/17 07:29 Lymph % (Auto) 21.1 % (13.4-35.0) 09/29/17 04:06 [place] % (Auto) 11.1 % (0.0-7.3) H 09/29/17 04:06 Eos % (Auto) 0.6 % (0.0-4.3) 09/29/17 04:06 Baso % (Auto) 0.5 % (0.0-1.8) 09/29/17 04:06 Lymph # 1.9 K/mm3 (1.2-5.4) 09/29/17 04:06 [place] # 1.0 K/mm3 (0.0-0.8) H 09/29/17 04:06 Eos # 0.1 K/mm3 (0.0-0.4) 09/29/17 04:06 Baso # 0.0 K/mm3 (0.0-0.1) 09/29/17 04:06 Seg Neutrophils % 66.7 % (40.0-70.0) 09/29/17 04:06 Seg Neutrophils # 5.9 K/mm3 (1.8-7.7) 09/29/17 04:06 PT 14.1 Sec. (12.2-14.9) 09/28/17 17:05 INR 1.04 (0.87-1.13) 09/28/17 17:05 APTT 26.3 Sec. (24.2-36.6) 09/28/17 17:05 POC ABG pH 7.489 (7.35-7.45) H 09/28/17 18:33 POC ABG pCO2 26.6 (35-45) L 09/28/17 18:33 POC ABG pO2 58 (80-105) L 09/28/17 18:33 POC ABG HCO3 20.2 09/28/17 18:33 POC ABG Total CO2 21 09/28/17 18:33 POC ABG O2 Sat 92 09/28/17 18:33 POC ABG Base Excess -3 09/28/17 18:33 FiO2 21 % 09/28/17 18:33 Sodium 145 mmol/L (137-145) 09/30/17 07:29 Potassium 3.9 mmol/L (3.6-5.0) 09/30/17 07:29 Chloride 106.5 mmol/L (98-107) 09/30/17 07:29 Carbon Dioxide 19 mmol/L (22-30) L 09/30/17 07:29 Anion Gap 23 mmol/L 09/30/17 07:29 BUN 13 mg/dL (9-20) 09/30/17 07:29 Creatinine 1.0 mg/dL (0.8-1.5) 09/30/17 07:29 Estimated GFR > 60 ml/min 09/30/17 07:29 BUN/Creatinine Ratio 13 % 09/30/17 07:29 Glucose 119 mg/dL (75-100) H 09/30/17 07:29 POC Glucose 151 (70-105) H 10/02/17 22:09 Hemoglobin A1c 6.0 % (4-6) 09/28/17 17:09 Lactic Acid 1.40 mmol/L (0.7-2.0) 09/28/17 19:25 Calcium 8.6 mg/dL (8.4-10.2) 09/30/17 07:29 Magnesium 1.90 mg/dL (1.7-2.3) 09/29/17 04:06 Total Bilirubin 0.70 mg/dL (0.1-1.2) 09/29/17 04:06 Direct Bilirubin 0.2 mg/dL (0-0.2) 09/29/17 04:06 Indirect Bilirubin 0.5 mg/dL 09/29/17 04:06 AST 14 units/L (5-40) 09/29/17 04:06 ALT 8 units/L (7-56) 09/29/17 04:06 Alkaline Phosphatase 43 units/L (35-129) 09/29/17 04:06 Ammonia 55.0 umol/L (25-60) 09/29/17 04:23 Total Creatine Kinase 150 units/L (55-170) 09/29/17 14:57 CK-MB (CK-2) 3.4 ng/mL (0.0-4.0) 09/29/17 14:57 CK-MB (CK-2) Rel Index 2.2 (0-4) 09/29/17 14:57 Troponin T 0.094 ng/mL (0.00-0.029) H 09/29/17 14:57 NT-Pro-B Natriuret Pep 8683 pg/mL (0-900) H 09/28/17 17:05 Total Protein 6.8 g/dL (6.3-8.2) 09/29/17 04:06 Albumin 3.4 g/dL (3.9-5) L 09/29/17 04:06 Albumin/Globulin Ratio 1.0 % 09/29/17 04:06 Triglycerides 113 mg/dL (2-149) 09/28/17 17:05 Cholesterol 139 mg/dL (50-199) 09/28/17 17:05 LDL Cholesterol Direct 69 mg/dL (50-130) 09/28/17 17:05 HDL Cholesterol 48 mg/dL (40-59) 09/28/17 17:05 Cholesterol/HDL Ratio 2.89 % 09/28/17 17:05 Lipase 24 units/L (13-60) 09/28/17 17:05 TSH 0.755 mlU/mL (0.270-4.200) 09/28/17 16:47 Urine Color Yellow (Yellow) 09/28/17 17:48 Urine Turbidity Clear (Clear) 09/28/17 17:48 Urine pH 6.0 (5.0-7.0) 09/28/17 17:48 Ur Specific [place] 1.019 (1.003-1.030) 09/28/17 17:48 Urine Protein >500 mg/dL (Negative) 09/28/17 17:48 Urine Glucose (UA) Neg mg/dL (Negative) 09/28/17 17:48 Urine Ketones 20 mg/dL (Negative) 09/28/17 17:48 Urine Blood Neg (Negative) 09/28/17 17:48 Urine Nitrite Neg (Negative) 09/28/17 17:48 Urine Bilirubin Neg (Negative) 09/28/17 17:48 Urine Urobilinogen 4.0 mg/dL (<2.0) 09/28/17 17:48 Ur Leukocyte Esterase Neg (Negative) 09/28/17 17:48 Urine WBC (Auto) 1.0 /HPF (0.0-6.0) 09/28/17 17:48 Urine RBC (Auto) 4.0 /HPF (0.0-6.0) 09/28/17 17:48 U Epithel Cells (Auto) 1.0 /HPF (0-13.0) 09/28/17 17:48 Urine Mucus Few /HPF 09/28/17 17:48 Salicylates < 0.3 mg/dL (2.8-20.0) L 09/28/17 17:05 Urine Opiates Screen Presumptive negative 09/28/17 17:48 Urine Methadone Screen Presumptive negative 09/28/17 17:48 Acetaminophen < 15.0 ug/mL (10.0-30.0) 09/28/17 16:47 Ur Barbiturates Screen Presumptive negative 09/28/17 17:48 Ur Phencyclidine Scrn Presumptive negative 09/28/17 17:48 Ur Amphetamines Screen Presumptive negative 09/28/17 17:48 U Benzodiazepines Scrn Presumptive negative 09/28/17 17:48 Urine Cocaine Screen Presumptive negative 09/28/17 17:48 U Marijuana (THC) Screen Presumptive positive 09/28/17 17:48 Drugs of Abuse Note Disclamer 09/28/17 17:48 Plasma/Serum Alcohol < 0.01 gm% (0-0.07) 09/28/17 16:47
[2017-10-03] MEDS: HABITROL TD SCH (23:09)
[2017-10-04 07:01] LABS: INR 1.1 (0.87-1.13)
[2017-10-04 07:02] LABS: Partial Thromboplastin Time 29.6 Sec. (24.2-36.6)
[2017-10-04 07:09] LABS: Anion Gap 20 mmol/L; BUN/Creatinine Ratio 2; Blood Urea Nitrogen 2 mg/dL (9-20); Calcium 8.9 mg/dL (8.4-10.2); Carbon Dioxide 24 mmol/L (22-30); Chloride 103.3 mmol/L (98-107); Glucose 130 mg/dL (75-100); Potassium 3.7 mmol/L (3.6-5.0); Sodium 144 mmol/L (137-145)
--- NOTE | 2017-10-04 08:41 | Consultation ---
History of Present Illness - Reason for Consult Consult date: 10/04/17 ams - History of Present Illness patient seen and recommend MRI of brain prior to pacemaker because of the imaging sequence spoke to Past History Past Medical History: diabetes, hypertension Past Surgical History: cholecystectomy Social history: smoking, alcohol abuse Family history: hypertension Medications and Allergies Allergies Allergy/AdvReac Type Severity Reaction Status Date / Time No Known Allergies Allergy Verified 11/18/15 11:57 Home Medications Medication Instructions Recorded Confirmed Last Taken Type Lisinopril 20 mg PO BID 01/20/15 09/28/17 01/17/17 History Aspirin EC [Aspirin Enteric Coated 325 mg PO QDAY 01/18/17 09/28/17 01/17/17 History TAB] Carvedilol 6.25 mg PO BID 01/18/17 09/28/17 01/17/17 History Gabapentin [Neurontin] 600 mg PO TID 01/18/17 09/28/17 01/17/17 History Active Meds: Active Medications Acetaminophen (Tylenol) 650 mg PO Q4H PRN PRN Reason: Pain MILD(1-3)/Fever >100.5/COTTO Aspirin (Ecotrin) 325 mg PO QDAY ON LICENSE OF [facility] Last Admin: 10/03/17 10:37 Dose: 325 mg Bisacodyl (Dulcolax) 10 mg MA QDAY PRN PRN Reason: Constipation unrelieved by MOM Sodium Chloride 1,000 ml/ (Vancomycin HCl 1,000 mg) 0 ml IR INTRAOP ONE Stop: 10/04/17 12:01 Enoxaparin Sodium (Lovenox) 40 mg SUB-Q QDAY ON LICENSE OF [facility] Last Admin: 10/03/17 10:37 Dose: 40 mg Furosemide (Lasix) 40 mg IV QDAY@0800 ON LICENSE OF [facility] Last Admin: 10/03/17 10:37 Dose: 40 mg Gabapentin (Neurontin) 600 mg PO TID ON LICENSE OF [facility] Last Admin: 10/03/17 23:09 Dose: 600 mg Hydromorphone HCl (Dilaudid) 0.5 mg IV Q3H PRN PRN Reason: Pain , Severe (7-10) Lisinopril (Zestril) 20 mg PO BID ON LICENSE OF [facility] Last Admin: 10/03/17 23:09 Dose: 20 mg Lorazepam (Ativan) 2 mg IV Q1H PRN PRN Reason: CIWA-Ar 8-15 Last Admin: 09/29/17 07:48 Dose: 2 mg Lorazepam (Ativan) 4 mg IV Q1H PRN PRN Reason: CIWA-Ar 16-25 Losartan Potassium (Cozaar) 100 mg PO QDAY ON LICENSE OF [facility] Last Admin: 10/03/17 10:36 Dose: 100 mg Magnesium Hydroxide (Milk Of Magnesia) 30 ml PO Q4H PRN PRN Reason: Constipation Nicotine (Habitrol) 14 mg TD Q24H ON LICENSE OF [facility] Last Admin: 10/03/17 23:09 Dose: 14 mg Ondansetron HCl (Zofran) 4 mg IV Q8H PRN PRN Reason: N/V unrelieved by Reglan Oxycodone/Acetaminophen (Percocet 5/325) 1 tab PO Q6H PRN PRN Reason: Pain, Moderate (4-6) Exam - Constitutional Vitals: Temp Pulse Resp BP Pulse Ox 97.5 F L 53 L 20 131/55 97 10/04/17 00:23 10/04/17 00:23 10/04/17 00:23 10/04/17 00:22 10/04/17 00:23 Results - Labs CBC & Chem 7: 09/30/17 07:29 10/04/17 06:24 Labs: Abnormal lab results 10/03/17 10/04/17 Range/Units 21:00 06:24 BUN 2 L (9-20) mg/dL Glucose 130 H (75-100) mg/dL POC Glucose 158 H (70-105)
[2017-10-04] MEDS: COZAAR PO SCH (10:17)
[2017-10-04] MEDS: LASIX IV SCH (10:18)
[2017-10-04] MEDS: LOVENOX SUB-Q SCH (10:18)
[2017-10-04] MEDS: ZESTRIL PO SCH ×2 (10:18→21:58)
[2017-10-04] MEDS: NEURONTIN PO SCH ×3 (10:18→21:58)
[2017-10-04] MEDS: ECOTRIN PO SCH (10:19)
[2017-10-04] MEDS: PERCOCET 5/325 PO PRN (10:19)
--- NOTE | 2017-10-04 11:58 | Progress Note ---
Assessment and Plan Altered mental status Abnormal cardiac rhythm Complete heart block with stable junctional escape rhythm Normal TSH Non-ischemic cardiomyopathy Cath 12/2016 - Normal coronaries, LVEF 30% EF 20-25% on echo this admission pt considered not a candidate for primary prevention ICD as he continues to drink alcohol regularly which may be the cause of his cardiomyopathy and he has unfortunately been non- compliant. Non-specific troponin Hypertension Type II DM Alcohol abuse Marijuana abuse Recommendations: Continue to monitor on tele Avoid any AV aguila blocking medications. Neurology workup in process. Will tentatively plan for dual chamber PPM implant Sunday afternoon. Counseled patient to refrain from alcohol and illicit drug use. Subjective Date of service: 10/04/17 Principal diagnosis: Bradyarrhythmias Interval history: Awaits MRI. Objective Vital Signs Temp Pulse Resp BP BP Pulse Ox 10/04/17 10:00 20 10/04/17 08:48 98.2 F 67 18 181/74 99 10/04/17 00:23 97.5 F L 53 L 20 97 10/04/17 00:22 55 L 131/55 95 10/04/17 00:20 97.5 F L 55 L 20 131/55 98 10/03/17 22:00 20 10/03/17 19:38 97.3 F L 57 L 20 142/65 94 10/03/17 17:09 98.5 F 54 L 18 135/58 96 10/03/17 12:45 99.2 F 52 L 16 172/70 98 - Physical Examination General: No Apparent Distress Cardiac: Positive: Regular Rhythm Abdomen: Positive: Soft, Active Bowel Sounds Extremities: Absent: edema - Labs and Meds Coagulation 10/04/17 Range/Units 06:24 PT 14.8 (12.2-14.9) Sec. INR 1.10 (0.87-1.13) APTT 29.6 (24.2-36.6) Sec. Comprehensive Metabolic Panel 10/04/17 Range/Units 06:24 Sodium 144 (137-145) mmol/L Potassium 3.7 (3.6-5.0) mmol/L Chloride 103.3 (98-107) mmol/L Carbon Dioxide 24 (22-30) mmol/L BUN 2 L (9-20) mg/dL Creatinine 0.9 (0.8-1.5) mg/dL Glucose 130 H (75-100) mg/dL Calcium 8.9 (8.4-10.2) mg/dL - Imaging and Cardiology EKG: report reviewed (Complete Heart Block)
[2017-10-04] MEDS ORDERED: NACL 0.9% 1,000 ML, VANCOMYCIN VIAL 1,000 MG IR ONE (12:00)
--- NOTE | 2017-10-04 16:11 | Magnetic Resonance Report ---
MRI of the brain without contrast. History: Seizure. Procedure: Routine brain protocol without contrast. Findings: The posterior fossa is normal. There is global volume loss with prominent cortical sulci and ventricles. There is no restricted diffusion. A chronic lacunar infarct is seen in the thalamus laterally, larger on the left measuring 7 mm in diameter. There are scattered areas of hyperintense T2 and flair signal and hypointense T1 signal in the periventricular white matter. There are no masses or extra-axial collections. The pituitary gland appears normal. Mild chronic ethmoid and left maxillary sinus disease is noted. Impression: No acute findings. 2. Global atrophy, chronic periventricular microangiopathic ischemic changes, and bilateral chronic thalamic lacunar infarcts are noted. 3. Mild chronic sinus disease.
--- NOTE | 2017-10-04 20:11 | Progress Note ---
Assessment and Plan Assessment and plan: 72 yo AAM with HTN, peripheral neuropathy, alcohol abuse, admitted for altered mental status and found to arrhythmia with episodes of complete heart block 1. Cardiac arrhythmia EKG with second degree AV block and episodes of complete heart block with junctional escape rhythm with wide QRS complexes Electrolytes, TSH wnl ECHO EF 20-25% Cath 12/2016 normal coronaries and EF 30% Holding any AV aguila blocking agents Monitor on tele Cardiology plans pacemaker placement after neuro eval and clearance; brain MRI obtained and showed no acute findings, but atrophy; considered not a candidate for biventricular ICD due to his ongoing alcohol abuse 2. Nonischemic cardiomyopathy/Acute on chronic systolic heart failure See above discussion Possible related with alcohol abuse BB held due to heart block Continue ACEI, diuretic 3. Non-specific troponin elevation 4. Acute encephalopathy Likely secondary to alcohol abuse/withdrawal and drug use UDS positive for marijuana Placed on CIWA protocol S/p banana bag 5. Alcohol abuse 6. Drug abuse 7. HTN Continue home medications except BB Monitor BP and adjust regimen as needed 8. Hyperglycemia Stress reaction, A1c 6 9. Peripheral neuropathy Continue gabapentin 10. Bilateral knee pain Swelling and tenderness present bilateral knee Obtain x-ray and further management based on results; diff - OA/septic arthritis /gout 11. DVT prophylaxis History Interval history: MRI brain obtained and showed no acute findings, cardiology decided to proceed with pacemaker placement tomorrow Complaining of bilateral knee pain present at bedside, updated Hospitalist Physical - Constitutional Vitals: Temp Pulse Resp BP Pulse Ox 98.3 F 53 L 18 136/63 96 10/04/17 12:05 10/04/17 12:05 10/04/17 12:05 10/04/17 12:05 10/04/17 12:05 General appearance: Present: no acute distress - EENT Eyes: Present: PERRL, EOM intact - Neck Neck: Present: supple, normal ROM. Absent: masses or JVD - Respiratory Respiratory effort: normal Respiratory: bilateral: diminished, negative: rhonchi, wheezing - Cardiovascular Rhythm: other (bradycardic) Heart Sounds: Present: S1 & S2. Absent: systolic murmur - Extremities Extremities: no ischemia, abnormal (bilateral knee swelling) - Abdominal General gastrointestinal: soft, non-tender, non-distended, normal bowel sounds - Psychiatric Psychiatric: cooperative - Neurologic Neurologic: CNII-XII intact, no focal deficits Results - Labs CBC & Chem 7: 10/05/17 10:15 10/04/17 06:24 Labs: Laboratory Last Values WBC 8.1 K/mm3 (4.5-11.0) 09/30/17 07:29 RBC 3.28 M/mm3 (3.65-5.03) L 09/30/17 07:29 Hgb 11.7 gm/dl (11.8-15.2) L 09/30/17 07:29 Hct 34.8 % (35.5-45.6) L 09/30/17 07:29 MCV 106 fl (84-94) H 09/30/17 07:29 MCH 36 pg (28-32) H 09/30/17 07:29 MCHC 34 % (32-34) 09/30/17 07:29 RDW 15.2 % (13.2-15.2) 09/30/17 07:29 Plt Count 237 K/mm3 (140-440) 09/30/17 07:29 Lymph % (Auto) 21.1 % (13.4-35.0) 09/29/17 04:06 [place] % (Auto) 11.1 % (0.0-7.3) H 09/29/17 04:06 Eos % (Auto) 0.6 % (0.0-4.3) 09/29/17 04:06 Baso % (Auto) 0.5 % (0.0-1.8) 09/29/17 04:06 Lymph # 1.9 K/mm3 (1.2-5.4) 09/29/17 04:06 [place] # 1.0 K/mm3 (0.0-0.8) H 09/29/17 04:06 Eos # 0.1 K/mm3 (0.0-0.4) 09/29/17 04:06 Baso # 0.0 K/mm3 (0.0-0.1) 09/29/17 04:06 Seg Neutrophils % 66.7 % (40.0-70.0) 09/29/17 04:06 Seg Neutrophils # 5.9 K/mm3 (1.8-7.7) 09/29/17 04:06 PT 14.8 Sec. (12.2-14.9) 10/04/17 06:24 INR 1.10 (0.87-1.13) 10/04/17 06:24 APTT 29.6 Sec. (24.2-36.6) 10/04/17 06:24 POC ABG pH 7.489 (7.35-7.45) H 09/28/17 18:33 POC ABG pCO2 26.6 (35-45) L 09/28/17 18:33 POC ABG pO2 58 (80-105) L 09/28/17 18:33 POC ABG HCO3 20.2 09/28/17 18:33 POC ABG Total CO2 21 09/28/17 18:33 POC ABG O2 Sat 92 09/28/17 18:33 POC ABG Base Excess -3 09/28/17 18:33 FiO2 21 % 09/28/17 18:33 Sodium 144 mmol/L (137-145) 10/04/17 06:24 Potassium 3.7 mmol/L (3.6-5.0) 10/04/17 06:24 Chloride 103.3 mmol/L (98-107) 10/04/17 06:24 Carbon Dioxide 24 mmol/L (22-30) 10/04/17 06:24 Anion Gap 20 mmol/L 10/04/17 06:24 BUN 2 mg/dL (9-20) L 10/04/17 06:24 Creatinine 0.9 mg/dL (0.8-1.5) 10/04/17 06:24 Estimated GFR > 60 ml/min 10/04/17 06:24 BUN/Creatinine Ratio 2 % 10/04/17 06:24 Glucose 130 mg/dL (75-100) H 10/04/17 06:24 POC Glucose 108 (70-105) H 10/04/17 11:44 Hemoglobin A1c 6.0 % (4-6) 09/28/17 17:09 Lactic Acid 1.40 mmol/L (0.7-2.0) 09/28/17 19:25 Calcium 8.9 mg/dL (8.4-10.2) 10/04/17 06:24 Magnesium 1.90 mg/dL (1.7-2.3) 09/29/17 04:06 Total Bilirubin 0.70 mg/dL (0.1-1.2) 09/29/17 04:06 Direct Bilirubin 0.2 mg/dL (0-0.2) 09/29/17 04:06 Indirect Bilirubin 0.5 mg/dL 09/29/17 04:06 AST 14 units/L (5-40) 09/29/17 04:06 ALT 8 units/L (7-56) 09/29/17 04:06 Alkaline Phosphatase 43 units/L (35-129) 09/29/17 04:06 Ammonia 55.0 umol/L (25-60) 09/29/17 04:23 Total Creatine Kinase 150 units/L (55-170) 09/29/17 14:57 CK-MB (CK-2) 3.4 ng/mL (0.0-4.0) 09/29/17 14:57 CK-MB (CK-2) Rel Index 2.2 (0-4) 09/29/17 14:57 Troponin T 0.094 ng/mL (0.00-0.029) H 09/29/17 14:57 NT-Pro-B Natriuret Pep 8683 pg/mL (0-900) H 09/28/17 17:05 Total Protein 6.8 g/dL (6.3-8.2) 09/29/17 04:06 Albumin 3.4 g/dL (3.9-5) L 09/29/17 04:06 Albumin/Globulin Ratio 1.0 % 09/29/17 04:06 Triglycerides 113 mg/dL (2-149) 09/28/17 17:05 Cholesterol 139 mg/dL (50-199) 09/28/17 17:05 LDL Cholesterol Direct 69 mg/dL (50-130) 09/28/17 17:05 HDL Cholesterol 48 mg/dL (40-59) 09/28/17 17:05 Cholesterol/HDL Ratio 2.89 % 09/28/17 17:05 Lipase 24 units/L (13-60) 09/28/17 17:05 TSH 0.755 mlU/mL (0.270-4.200) 09/28/17 16:47 Urine Color Yellow (Yellow) 09/28/17 17:48 Urine Turbidity Clear (Clear) 09/28/17 17:48 Urine pH 6.0 (5.0-7.0) 09/28/17 17:48 Ur Specific [place] 1.019 (1.003-1.030) 09/28/17 17:48 Urine Protein >500 mg/dL (Negative) 09/28/17 17:48 Urine Glucose (UA) Neg mg/dL (Negative) 09/28/17 17:48 Urine Ketones 20 mg/dL (Negative) 09/28/17 17:48 Urine Blood Neg (Negative) 09/28/17 17:48 Urine Nitrite Neg (Negative) 09/28/17 17:48 Urine Bilirubin Neg (Negative) 09/28/17 17:48 Urine Urobilinogen 4.0 mg/dL (<2.0) 09/28/17 17:48 Ur Leukocyte Esterase Neg (Negative) 09/28/17 17:48 Urine WBC (Auto) 1.0 /HPF (0.0-6.0) 09/28/17 17:48 Urine RBC (Auto) 4.0 /HPF (0.0-6.0) 09/28/17 17:48 U Epithel Cells (Auto) 1.0 /HPF (0-13.0) 09/28/17 17:48 Urine Mucus Few /HPF 09/28/17 17:48 Salicylates < 0.3 mg/dL (2.8-20.0) L 09/28/17 17:05 Urine Opiates Screen Presumptive negative 09/28/17 17:48 Urine Methadone Screen Presumptive negative 09/28/17 17:48 Acetaminophen < 15.0 ug/mL (10.0-30.0) 09/28/17 16:47 Ur Barbiturates Screen Presumptive negative 09/28/17 17:48 Ur Phencyclidine Scrn Presumptive negative 09/28/17 17:48 Ur Amphetamines Screen Presumptive negative 09/28/17 17:48 U Benzodiazepines Scrn Presumptive negative 09/28/17 17:48 Urine Cocaine Screen Presumptive negative 09/28/17 17:48 U Marijuana (THC) Screen Presumptive positive 09/28/17 17:48 Drugs of Abuse Note Disclamer 09/28/17 17:48 Plasma/Serum Alcohol < 0.01 gm% (0-0.07) 09/28/17 16:47
[2017-10-04] MEDS: HABITROL TD SCH (21:58)
[2017-10-05 06:29] LABS: INR 1.11 (0.87-1.13)
--- NOTE | 2017-10-05 07:30 | XRay Report ---
Bilateral knee: History: Knee pain/swelling. Findings: Narrowing of the medial lateral and patellofemoral compartment identified joint. Sclerotic acute loss of peripheral osteophyte suggestive of severe degenerative changes. There is moderate joint effusion noted at the suprapatellar bursa left knee. Impression: Tricompartment severe degenerative changes. Moderate fluid in suprapatellar bursa left knee.
[2017-10-05] MEDS: NEURONTIN PO SCH ×3 (08:12→22:45)
[2017-10-05] MEDS: COZAAR PO SCH (10:00)
[2017-10-05 10:32] LABS: Basophils % (Auto) 1.1 % (0.0-1.8); Eosinophils % (Auto) 2.2 % (0.0-4.3); Hematocrit 32.4 % (35.5-45.6); Hemoglobin 10.9 gm/dl (11.8-15.2); Mean Corpuscular HGB Conc 34 % (32-34); Mean Corpuscular Hemoglobin 36 pg (28-32); Mean Corpuscular Volume 106 fl (84-94); Platelet Count 242 K/mm3 (140-440); Red Blood Count 3.06 M/mm3 (3.65-5.03); Red Cell Distribution Width 15.2 % (13.2-15.2); White Blood Count 6.7 K/mm3 (4.5-11.0)
[2017-10-05] MEDS: ECOTRIN PO SCH (11:24)
[2017-10-05] MEDS: ZESTRIL PO SCH ×2 (11:25→22:45)
[2017-10-05] MEDS: LOVENOX SUB-Q SCH (11:25)
[2017-10-05] MEDS ORDERED: NACL 0.9% 1,000 ML, VANCOMYCIN VIAL 1,000 MG IR ONE (12:53)
[2017-10-05] MEDS ORDERED: LOPRESSOR IV ONE ×2 (13:30→16:51)
--- NOTE | 2017-10-05 13:42 | Anesthesia Consultation ---
Anesthesia Consult and Med Hx Date of service: 10/05/17 - Airway Anesthetic Teeth Evaluation: Poor, Bridges (upper) ROM Head & Neck: Adequate Mental/Hyoid Distance: Adequate Mallampati Class: Class III Intubation Access Assessment: Possibly Difficult - Pulmonary Exam CTA: Yes - Cardiac Exam Cardiac Exam: RRR - Pre-Operative Health Status ASA Pre-Surgery Classification: ASA4 Proposed Anesthetic Plan: MAC - Pre-Anesthesia Comment Pre-Anesthesia Comments: Consent signed by at bedside - Pulmonary Hx Smoking: Yes (1 1/2 ppd since he was 12) COPD: Yes - Cardiovascular System Hx Hypertension: Yes (2013) Hx Coronary Artery Disease: Yes (EF 20% on echo 10/12) Hx Heart Attack/AMI: No Hx Cardia Arrhythmia: Yes (juctional rhythm, complete heart block) Hx Peripheral Vascular Disease: Yes - Central Nervous System Hx Neuromuscular Disorder: No (walk w cane at home, unable to stand since admission on 09/28) CVA: No (acute altered mental status) - Endocrine Hx Renal Disease: No Hx Liver Disease: No Hx Non-Insulin Dependent Diabetes: Yes - Other Systems Hx Alcohol Use: Yes (3 beers per night) Hx Substance Use: Yes (marijuanna) Hx Cancer: No - Additional Comments Anesthesia Medical History Comments: NAC
--- NOTE | 2017-10-05 13:44 | Anesthesia Day of Surgery ---
Anesthesia Day of Surgery - Day of Surgery Patient Examined: Yes Patient H&P Reviewed: Yes Patient is NPO: Yes
[2017-10-05] MEDS ORDERED: VERSED ONE (13:55)
[2017-10-05] MEDS ORDERED: DILAUDID ONE (13:55)
[2017-10-05] MEDS ORDERED: XYLOCAINE MPF 2% ONE (13:56)
[2017-10-05] MEDS ORDERED: DIPRIVAN 10 MG/ML IV ONE ×3 (13:56)
[2017-10-05] MEDS ORDERED: NACL 0.9% 500 ML IR ONE (14:20)
[2017-10-05] MEDS ORDERED: XYLOCAINE 1% 20 mL ONE (14:20)
[2017-10-05] MEDS ORDERED: MARCAINE 0.5% 60 ML INFILTRATI ONE (14:21)
[2017-10-05] MEDS ORDERED: ANCEF/STERILE WATER 2 GM/20 ML 2 GM/20 ML SYRINGE IV ONE (14:21)
[2017-10-05] MEDS ORDERED: NACL 0.9% 1000 ML 1,000 ML ONE (14:43)
[2017-10-05] MEDS ORDERED: VANCOMYCIN VIAL 1,000 MG in NACL 0.9% 1,000 ML IRRIGATION ONE (16:28)
--- NOTE | 2017-10-05 16:57 | Event Note ---
Date: 10/05/17 Patient underwent dual chamber pacemaker implant without apparent complications. Recommend: 1. Check chest Xray 2. PPM interrogation tomorrow AM 3. Restart coreg and titrate to maximal tolerated dose. 4. Consider eventual upgrade to ICD if EF does not improve despite alcohol cessation and > 3 months of maximal tolerated medical therapy for non ischemic cardiomyopathy. Jameel Hammond MD
[2017-10-05] MEDS ORDERED: AMIDATE IV ONE (17:27)
[2017-10-05] MEDS: ANCEF/NS 1 GM/50 ML 1 GM/50 ML BAG IV SCH (18:03)
[2017-10-05] MEDS: LASIX IV SCH (18:03)
--- NOTE | 2017-10-05 19:26 | XRay Report ---
FINAL REPORT EXAM: XR CHEST 1V AP HISTORY: Pacemaker Postop TECHNIQUE: AP portable view of the chest PRIORS: None. FINDINGS: Lines, tubes, and devices: A dual lead left subclavian pacemaker terminates in the right atrium and right ventricle. Lungs and pleura: Trachea is normal in position. Linear markings in the right apex associated with adjacent pleural reaction are likely fibrotic. Otherwise, lungs are clear of infiltrate, pleural effusion, vascular congestion, or pneumothorax. Cardiomediastinal silhouette: Cardiac and mediastinal silhouettes are unremarkable. Other: Bony structures are intact. IMPRESSION: No acute cardiopulmonary process seen. Linear fibrotic changes and pleural reaction in the right apex.
--- NOTE | 2017-10-05 19:57 | Progress Note ---
Assessment and Plan Assessment and plan: 72 yo AAM with HTN, peripheral neuropathy, alcohol abuse, admitted for altered mental status and found to arrhythmia with episodes of complete heart block 1. Cardiac arrhythmia EKG with second degree AV block and episodes of complete heart block with junctional escape rhythm with wide QRS complexes Electrolytes, TSH wnl ECHO EF 20-25% Cath 12/2016 normal coronaries and EF 30% Holding any AV aguila blocking agents S/p pacemaker placement today 2. Nonischemic cardiomyopathy/Acute on chronic systolic heart failure See above discussion Possible related with alcohol abuse BB held due to heart block Continue ACEI, diuretic 3. Non-specific troponin elevation 4. Acute encephalopathy Likely secondary to alcohol abuse/withdrawal and drug use UDS positive for marijuana Placed on CIWA protocol S/p banana bag 5. Alcohol abuse 6. Drug abuse 7. HTN Continue home medications except BB Monitor BP and adjust regimen as needed 8. Hyperglycemia Stress reaction, A1c 6 9. Peripheral neuropathy Continue gabapentin 10. Bilateral knee pain Swelling and tenderness present bilateral knee Diff - OA/septic arthritis/gout X-ray obtained and showed tricompartment CVA degenerative changes and moderate fluid in the suprapatellar bursa left knee Consult IR for arthrocentesis 11. DVT prophylaxis History Interval history: Status post pacemaker placement, doing well Hospitalist Physical - Constitutional Vitals: Temp Pulse Resp BP Pulse Ox 98.3 F 87 18 147/84 100 10/05/17 18:00 10/05/17 18:00 10/05/17 18:00 10/05/17 18:00 10/05/17 13:01 General appearance: Present: no acute distress - EENT Eyes: Present: PERRL, EOM intact - Neck Neck: Present: supple. Absent: enlarged thyroid, masses or JVD - Respiratory Respiratory effort: normal Respiratory: bilateral: CTA, negative: rhonchi, wheezing - Cardiovascular Rhythm: regular Heart Sounds: Present: S1 & S2. Absent: systolic murmur - Extremities Extremities: no ischemia Extremity abnormal: other (bilat knee swelling and tenderness) - Abdominal General gastrointestinal: soft, non-tender, non-distended, normal bowel sounds - Neurologic Neurologic: CNII-XII intact, no focal deficits Results - Labs CBC & Chem 7: 10/05/17 10:15 10/04/17 06:24 Labs: Laboratory Last Values WBC 6.7 K/mm3 (4.5-11.0) 11/10/17 10:15 RBC 3.06 M/mm3 (3.65-5.03) L 10/05/17 10:15 Hgb 10.9 gm/dl (11.8-15.2) L 10/05/17 10:15 Hct 32.4 % (35.5-45.6) L 10/05/17 10:15 MCV 106 fl (84-94) H 10/05/17 10:15 MCH 36 pg (28-32) H 10/05/17 10:15 MCHC 34 % (32-34) 10/05/17 10:15 RDW 15.2 % (13.2-15.2) 10/05/17 10:15 Plt Count 242 K/mm3 (140-440) 10/05/17 10:15 Lymph % (Auto) 23.1 % (13.4-35.0) 10/05/17 10:15 [place] % (Auto) 11.3 % (0.0-7.3) H 10/05/17 10:15 Eos % (Auto) 2.2 % (0.0-4.3) 10/05/17 10:15 Baso % (Auto) 1.1 % (0.0-1.8) 10/05/17 10:15 Lymph # 1.6 K/mm3 (1.2-5.4) 10/05/17 10:15 [place] # 0.8 K/mm3 (0.0-0.8) 10/05/17 10:15 Eos # 0.1 K/mm3 (0.0-0.4) 10/05/17 10:15 Baso # 0.1 K/mm3 (0.0-0.1) 10/05/17 10:15 Seg Neutrophils % 62.3 % (40.0-70.0) 10/05/17 10:15 Seg Neutrophils # 4.2 K/mm3 (1.8-7.7) 10/05/17 10:15 PT 14.9 Sec. (12.2-14.9) 10/05/17 06:00 INR 1.11 (0.87-1.13) 10/05/17 06:00 APTT 29.6 Sec. (24.2-36.6) 10/04/17 06:24 POC ABG pH 7.489 (7.35-7.45) H 09/28/17 18:33 POC ABG pCO2 26.6 (35-45) L 09/28/17 18:33 POC ABG pO2 58 (80-105) L 09/28/17 18:33 POC ABG HCO3 20.2 09/28/17 18:33 POC ABG Total CO2 21 09/28/17 18:33 POC ABG O2 Sat 92 09/28/17 18:33 POC ABG Base Excess -3 09/28/17 18:33 FiO2 21 % 09/28/17 18:33 Sodium 144 mmol/L (137-145) 10/04/17 06:24 Potassium 3.7 mmol/L (3.6-5.0) 10/04/17 06:24 Chloride 103.3 mmol/L (98-107) 10/04/17 06:24 Carbon Dioxide 24 mmol/L (22-30) 10/04/17 06:24 Anion Gap 20 mmol/L 10/04/17 06:24 BUN 2 mg/dL (9-20) L 10/04/17 06:24 Creatinine 0.9 mg/dL (0.8-1.5) 10/04/17 06:24 Estimated GFR > 60 ml/min 10/04/17 06:24 BUN/Creatinine Ratio 2 % 10/04/17 06:24 Glucose 130 mg/dL (75-100) H 10/04/17 06:24 POC Glucose 130 (70-105) H 10/04/17 21:38 Hemoglobin A1c 6.0 % (4-6) 09/28/17 17:09 Lactic Acid 1.40 mmol/L (0.7-2.0) 09/28/17 19:25 Calcium 8.9 mg/dL (8.4-10.2) 10/04/17 06:24 Magnesium 1.90 mg/dL (1.7-2.3) 09/29/17 04:06 Total Bilirubin 0.70 mg/dL (0.1-1.2) 09/29/17 04:06 Direct Bilirubin 0.2 mg/dL (0-0.2) 09/29/17 04:06 Indirect Bilirubin 0.5 mg/dL 09/29/17 04:06 AST 14 units/L (5-40) 09/29/17 04:06 ALT 8 units/L (7-56) 09/29/17 04:06 Alkaline Phosphatase 43 units/L (35-129) 09/29/17 04:06 Ammonia 55.0 umol/L (25-60) 09/29/17 04:23 Total Creatine Kinase 150 units/L (55-170) 09/29/17 14:57 CK-MB (CK-2) 3.4 ng/mL (0.0-4.0) 09/29/17 14:57 CK-MB (CK-2) Rel Index 2.2 (0-4) 09/29/17 14:57 Troponin T 0.094 ng/mL (0.00-0.029) H 09/29/17 14:57 NT-Pro-B Natriuret Pep 8683 pg/mL (0-900) H 09/28/17 17:05 Total Protein 6.8 g/dL (6.3-8.2) 09/29/17 04:06 Albumin 3.4 g/dL (3.9-5) L 09/29/17 04:06 Albumin/Globulin Ratio 1.0 % 09/29/17 04:06 Triglycerides 113 mg/dL (2-149) 09/28/17 17:05 Cholesterol 139 mg/dL (50-199) 09/28/17 17:05 LDL Cholesterol Direct 69 mg/dL (50-130) 09/28/17 17:05 HDL Cholesterol 48 mg/dL (40-59) 09/28/17 17:05 Cholesterol/HDL Ratio 2.89 % 09/28/17 17:05 Lipase 24 units/L (13-60) 09/28/17 17:05 TSH 0.755 mlU/mL (0.270-4.200) 09/28/17 16:47 Urine Color Yellow (Yellow) 09/28/17 17:48 Urine Turbidity Clear (Clear) 09/28/17 17:48 Urine pH 6.0 (5.0-7.0) 09/28/17 17:48 Ur Specific [place] 1.019 (1.003-1.030) 09/28/17 17:48 Urine Protein >500 mg/dL (Negative) 09/28/17 17:48 Urine Glucose (UA) Neg mg/dL (Negative) 09/28/17 17:48 Urine Ketones 20 mg/dL (Negative) 09/28/17 17:48 Urine Blood Neg (Negative) 09/28/17 17:48 Urine Nitrite Neg (Negative) 09/28/17 17:48 Urine Bilirubin Neg (Negative) 09/28/17 17:48 Urine Urobilinogen 4.0 mg/dL (<2.0) 09/28/17 17:48 Ur Leukocyte Esterase Neg (Negative) 09/28/17 17:48 Urine WBC (Auto) 1.0 /HPF (0.0-6.0) 09/28/17 17:48 Urine RBC (Auto) 4.0 /HPF (0.0-6.0) 09/28/17 17:48 U Epithel Cells (Auto) 1.0 /HPF (0-13.0) 09/28/17 17:48 Urine Mucus Few /HPF 09/28/17 17:48 Salicylates < 0.3 mg/dL (2.8-20.0) L 09/28/17 17:05 Urine Opiates Screen Presumptive negative 09/28/17 17:48 Urine Methadone Screen Presumptive negative 09/28/17 17:48 Acetaminophen < 15.0 ug/mL (10.0-30.0) 09/28/17 16:47 Ur Barbiturates Screen Presumptive negative 09/28/17 17:48 Ur Phencyclidine Scrn Presumptive negative 09/28/17 17:48 Ur Amphetamines Screen Presumptive negative 09/28/17 17:48 U Benzodiazepines Scrn Presumptive negative 09/28/17 17:48 Urine Cocaine Screen Presumptive negative 09/28/17 17:48 U Marijuana (THC) Screen Presumptive positive 09/28/17 17:48 Drugs of Abuse Note Disclamer 09/28/17 17:48 Plasma/Serum Alcohol < 0.01 gm% (0-0.07) 09/28/17 16:47
[2017-10-05] MEDS: HABITROL TD SCH (22:44)
[2017-10-05] MEDS: COREG PO SCH (22:45)
[2017-10-06] MEDS: ANCEF/NS 1 GM/50 ML 1 GM/50 ML BAG IV SCH (00:20)
--- NOTE | 2017-10-06 10:33 | Progress Note ---
Assessment and Plan 1. Dilated nonischemic cardiomyopathy 2. Status post permanent pacemaker insertion 3. Essential hypertension 4. Type 2 diabetes mellitus 5. History of alcohol abuse and marijuana abuse Plan. Patient currently stable we will continue pre-and afterload reduction with Coreg and SOMMER inhibitor this patient may be discharged home and followed up as an outpatient. Subjective Date of service: 10/06/17 Principal diagnosis: Bradyarrhythmias Interval history: No cardiac symptoms Objective Vital Signs Temp Pulse Resp BP BP Pulse Ox 10/06/17 04:31 98.8 F 103 H 22 147/79 91 10/06/17 00:06 99.0 F 100 H 20 153/86 95 10/05/17 22:00 102 H 10/05/17 20:22 97.8 F 96 H 20 158/94 100 10/05/17 18:00 98.3 F 87 18 147/84 10/05/17 13:01 97.8 F 53 L 19 150/62 100 - Physical Examination General: Appears Well, No Apparent Distress HEENT: Positive: PERRL, Normocephaly, Mucus Membranes Moist Neck: Positive: neck supple, trachea midline. Negative: JVD/HJR Cardiac: Positive: Reg Rate and Rhythm, Regular Rate, S1/S2, S3, PMI, Dilated, Laterally Displaced Lungs: Positive: clear to auscultation, No Wheeze, Rales, Rhonchi Neuro: Positive: Grossly Intact Abdomen: Positive: Unremarkable, Soft, Active Bowel Sounds Extremities: Absent: edema - Labs and Meds CBC 10/05/17 Range/Units 10:15 WBC 6.7 (4.5-11.0) K/mm3 RBC 3.06 L (3.65-5.03) M/mm3 Hgb 10.9 L (11.8-15.2) gm/dl Hct 32.4 L (35.5-45.6) % Plt Count 242 (140-440) K/mm3 Lymph # 1.6 (1.2-5.4) K/mm3 [place] # 0.8 (0.0-0.8) K/mm3 Eos # 0.1 (0.0-0.4) K/mm3 Baso # 0.1 (0.0-0.1) K/mm3 - Imaging and Cardiology EKG: report reviewed (Complete Heart Block)
[2017-10-06] MEDS: LASIX IV SCH (10:49)
[2017-10-06] MEDS: COREG PO SCH ×2 (10:50→21:03)
[2017-10-06] MEDS: ZESTRIL PO SCH (10:51)
[2017-10-06] MEDS: ECOTRIN PO SCH (10:51)
[2017-10-06] MEDS: NEURONTIN PO SCH ×3 (10:55→21:03)
[2017-10-06] MEDS: PERCOCET 5/325 PO PRN ×2 (11:02→18:21)
--- NOTE | 2017-10-06 13:25 | Event Note ---
Date: 10/06/17 Arthrocentesis procedures are performed by diagnostic radiology. Order placed to assist with care. Please contact diagnostic radiology.
[2017-10-06] MEDS: DILAUDID IV PRN (14:20)
--- NOTE | 2017-10-06 17:49 | Progress Note ---
Assessment and Plan Assessment and plan: --Mild acute osteoarthritis/right knee joint effusion Supportive care, pending arthrocentesis, orthopedic following --Metabolic encephalopathy; probably secondary to alcohol abuse. Occasional drug use Patient is on CIND protocol, supportive care, restraints for safety as needed --Complete heart block status post permanent pacemaker placement Supportive care --Acute on chronic systolic congestive heart failure; ejection fraction 20-25% Continue current anti-failure medications, cardiology following --Nonischemic cardiomyopathy; probably alcohol related Diuretics and manpreet inhibitors and beta blockers input and output monitoring --Hypertension; moderate control, continue present antihypertensives and when necessary medications --Mild hyperglycemia, probably stress related, A1c 6, closely monitor -- Peripheral neuropathy, Continue gabapentin -- DVT prophylaxis --Full code History Interval history: Patient seen and examined Medical Records reviewed Complaints of knee pain, orthocentesis rescheduled for Sunday Vital signs stable patient is alert and awake and responding appropriately Hospitalist Physical - Constitutional Vitals: Temp Pulse Resp BP Pulse Ox 98.8 F 105 H 22 144/84 91 10/06/17 04:31 10/06/17 10:51 10/06/17 04:31 10/06/17 10:51 10/06/17 04:31 General appearance: Present: no acute distress, well-nourished - EENT Eyes: Present: PERRL, EOM intact - Neck Neck: Present: supple, normal ROM - Respiratory Respiratory effort: normal Respiratory: negative: rales, rhonchi, wheezing - Cardiovascular Rhythm: regular Heart Sounds: Present: S1 & S2 - Extremities Extremities: no ischemia, abnormal (bilateral osteoarthritis, right joint effusion) - Abdominal General gastrointestinal: soft, non-tender, non-distended, normal bowel sounds - Integumentary Integumentary: Present: clear, warm - Psychiatric Psychiatric: appropriate mood/affect, cooperative, other (confused at times) - Neurologic Neurologic: CNII-XII intact, moves all extremities Results - Labs CBC & Chem 7: 10/05/17 10:15 10/04/17 06:24 Labs: Laboratory Last Values WBC 6.7 K/mm3 (4.5-11.0) 10/05/17 10:15 RBC 3.06 M/mm3 (3.65-5.03) L 10/05/17 10:15 Hgb 10.9 gm/dl (11.8-15.2) L 10/05/17 10:15 Hct 32.4 % (35.5-45.6) L 10/05/17 10:15 MCV 106 fl (84-94) H 10/05/17 10:15 MCH 36 pg (28-32) H 10/05/17 10:15 MCHC 34 % (32-34) 10/05/17 10:15 RDW 15.2 % (13.2-15.2) 10/05/17 10:15 Plt Count 242 K/mm3 (140-440) 10/05/17 10:15 Lymph % (Auto) 23.1 % (13.4-35.0) 10/05/17 10:15 [place] % (Auto) 11.3 % (0.0-7.3) H 10/05/17 10:15 Eos % (Auto) 2.2 % (0.0-4.3) 10/05/17 10:15 Baso % (Auto) 1.1 % (0.0-1.8) 10/05/17 10:15 Lymph # 1.6 K/mm3 (1.2-5.4) 10/05/17 10:15 [place] # 0.8 K/mm3 (0.0-0.8) 10/05/17 10:15 Eos # 0.1 K/mm3 (0.0-0.4) 10/05/17 10:15 Baso # 0.1 K/mm3 (0.0-0.1) 10/05/17 10:15 Seg Neutrophils % 62.3 % (40.0-70.0) 10/05/17 10:15 Seg Neutrophils # 4.2 K/mm3 (1.8-7.7) 10/05/17 10:15 PT 14.9 Sec. (12.2-14.9) 10/05/17 06:00 INR 1.11 (0.87-1.13) 10/05/17 06:00 APTT 29.6 Sec. (24.2-36.6) 10/04/17 06:24 POC ABG pH 7.489 (7.35-7.45) H 09/28/17 18:33 POC ABG pCO2 26.6 (35-45) L 09/28/17 18:33 POC ABG pO2 58 (80-105) L 09/28/17 18:33 POC ABG HCO3 20.2 09/28/17 18:33 POC ABG Total CO2 21 09/28/17 18:33 POC ABG O2 Sat 92 09/28/17 18:33 POC ABG Base Excess -3 09/28/17 18:33 FiO2 21 % 09/28/17 18:33 Sodium 144 mmol/L (137-145) 10/04/17 06:24 Potassium 3.7 mmol/L (3.6-5.0) 10/04/17 06:24 Chloride 103.3 mmol/L (98-107) 10/04/17 06:24 Carbon Dioxide 24 mmol/L (22-30) 10/04/17 06:24 Anion Gap 20 mmol/L 10/04/17 06:24 BUN 2 mg/dL (9-20) L 10/04/17 06:24 Creatinine 0.9 mg/dL (0.8-1.5) 10/04/17 06:24 Estimated GFR > 60 ml/min 10/04/17 06:24 BUN/Creatinine Ratio 2 % 10/04/17 06:24 Glucose 130 mg/dL (75-100) H 10/04/17 06:24 POC Glucose 192 (70-105) H 10/06/17 12:33 Hemoglobin A1c 6.0 % (4-6) 09/28/17 17:09 Lactic Acid 1.40 mmol/L (0.7-2.0) 09/28/17 19:25 Calcium 8.9 mg/dL (8.4-10.2) 10/04/17 06:24 Magnesium 1.90 mg/dL (1.7-2.3) 09/29/17 04:06 Total Bilirubin 0.70 mg/dL (0.1-1.2) 09/29/17 04:06 Direct Bilirubin 0.2 mg/dL (0-0.2) 09/29/17 04:06 Indirect Bilirubin 0.5 mg/dL 09/29/17 04:06 AST 14 units/L (5-40) 09/29/17 04:06 ALT 8 units/L (7-56) 09/29/17 04:06 Alkaline Phosphatase 43 units/L (35-129) 09/29/17 04:06 Ammonia 55.0 umol/L (25-60) 09/29/17 04:23 Total Creatine Kinase 150 units/L (55-170) 09/29/17 14:57 CK-MB (CK-2) 3.4 ng/mL (0.0-4.0) 09/29/17 14:57 CK-MB (CK-2) Rel Index 2.2 (0-4) 09/29/17 14:57 Troponin T 0.094 ng/mL (0.00-0.029) H 09/29/17 14:57 NT-Pro-B Natriuret Pep 8683 pg/mL (0-900) H 09/28/17 17:05 Total Protein 6.8 g/dL (6.3-8.2) 09/29/17 04:06 Albumin 3.4 g/dL (3.9-5) L 09/29/17 04:06 Albumin/Globulin Ratio 1.0 % 09/29/17 04:06 Triglycerides 113 mg/dL (2-149) 09/28/17 17:05 Cholesterol 139 mg/dL (50-199) 09/28/17 17:05 LDL Cholesterol Direct 69 mg/dL (50-130) 09/28/17 17:05 HDL Cholesterol 48 mg/dL (40-59) 09/28/17 17:05 Cholesterol/HDL Ratio 2.89 % 09/28/17 17:05 Lipase 24 units/L (13-60) 09/28/17 17:05 TSH 0.755 mlU/mL (0.270-4.200) 09/28/17 16:47 Urine Color Yellow (Yellow) 09/28/17 17:48 Urine Turbidity Clear (Clear) 09/28/17 17:48 Urine pH 6.0 (5.0-7.0) 09/28/17 17:48 Ur Specific [place] 1.019 (1.003-1.030) 09/28/17 17:48 Urine Protein >500 mg/dL (Negative) 09/28/17 17:48 Urine Glucose (UA) Neg mg/dL (Negative) 09/28/17 17:48 Urine Ketones 20 mg/dL (Negative) 09/28/17 17:48 Urine Blood Neg (Negative) 09/28/17 17:48 Urine Nitrite Neg (Negative) 09/28/17 17:48 Urine Bilirubin Neg (Negative) 09/28/17 17:48 Urine Urobilinogen 4.0 mg/dL (<2.0) 09/28/17 17:48 Ur Leukocyte Esterase Neg (Negative) 09/28/17 17:48 Urine WBC (Auto) 1.0 /HPF (0.0-6.0) 09/28/17 17:48 Urine RBC (Auto) 4.0 /HPF (0.0-6.0) 09/28/17 17:48 U Epithel Cells (Auto) 1.0 /HPF (0-13.0) 09/28/17 17:48 Urine Mucus Few /HPF 09/28/17 17:48 Salicylates < 0.3 mg/dL (2.8-20.0) L 09/28/17 17:05 Urine Opiates Screen Presumptive negative 09/28/17 17:48 Urine Methadone Screen Presumptive negative 09/28/17 17:48 Acetaminophen < 15.0 ug/mL (10.0-30.0) 09/28/17 16:47 Ur Barbiturates Screen Presumptive negative 09/28/17 17:48 Ur Phencyclidine Scrn Presumptive negative 09/28/17 17:48 Ur Amphetamines Screen Presumptive negative 09/28/17 17:48 U Benzodiazepines Scrn Presumptive negative 09/28/17 17:48 Urine Cocaine Screen Presumptive negative 09/28/17 17:48 U Marijuana (THC) Screen Presumptive positive 09/28/17 17:48 Drugs of Abuse Note Disclamer 09/28/17 17:48 Plasma/Serum Alcohol < 0.01 gm% (0-0.07) 09/28/17 16:47
[2017-10-06] MEDS: HABITROL TD SCH (21:03)
[2017-10-07] MEDS: ZESTRIL PO SCH ×3 (01:48→21:23)
[2017-10-07] MEDS: LASIX IV SCH (09:08)
[2017-10-07] MEDS: NEURONTIN PO SCH ×3 (09:10→21:22)
[2017-10-07] MEDS: ECOTRIN PO SCH (09:11)
[2017-10-07] MEDS: COREG PO SCH ×2 (09:13→21:23)
--- NOTE | 2017-10-07 10:34 | Progress Note ---
Assessment and Plan 1. Dilated nonischemic cardiomyopathy 2. Status post permanent pacemaker insertion 3. Essential hypertension 4. Type 2 diabetes mellitus 5. History of alcohol abuse and marijuana abuse Plan. Patient currently stable we will continue pre-and afterload reduction with Coreg and SOMMER inhibitor this patient may be discharged home and followed up as an outpatient. Subjective Date of service: 10/07/17 Principal diagnosis: Bradyarrhythmias Interval history: No cardiac symptoms. Pain in both knees. Objective Vital Signs Temp Pulse Resp BP BP Pulse Ox 10/07/17 09:10 123 H 137/93 10/07/17 05:23 99.0 F 102 H 20 145/87 96 10/07/17 00:05 98.7 F 99 H 17 124/78 97 10/06/17 22:00 98 H 10/06/17 19:54 97.6 F 108 H 20 100/57 10/06/17 16:55 97.9 F 100 H 18 113/64 96 10/06/17 12:29 98.2 F 105 H 18 103/57 96 10/06/17 10:51 105 H 144/84 10/06/17 10:50 105 H 144/84 - Physical Examination General: Appears Well, No Apparent Distress HEENT: Positive: PERRL, Normocephaly, Mucus Membranes Moist Neck: Positive: neck supple, trachea midline. Negative: JVD/HJR Cardiac: Positive: Regular Rate, S1/S2, S3, PMI, Dilated, Laterally Displaced Lungs: Positive: clear to auscultation, No Wheeze, Rales, Rhonchi Neuro: Positive: Grossly Intact Abdomen: Positive: Unremarkable, Soft, Active Bowel Sounds Extremities: Absent: edema - Imaging and Cardiology EKG: report reviewed (Complete Heart Block) - Telemetry EKG Rhythm: Paced
--- NOTE | 2017-10-07 19:44 | Progress Note ---
Assessment and Plan Assessment and plan: --Mild acute osteoarthritis/right knee joint effusion Supportive care, arthrocentesis, scheduled for tomorrow --Complete heart block status post permanent pacemaker placement Supportive care, cardiology following --Metabolic encephalopathy; improved, probably secondary to alcohol abuse. Patient is on [facility] protocol, supportive care, restraints for safety as needed --Acute on chronic systolic congestive heart failure; ejection fraction 20-25% Continue current anti-failure medications, cardiology following --Nonischemic cardiomyopathy; probably alcohol related Diuretics and manpreet inhibitors and beta blockers input and output monitoring --Hypertension; moderate control, continue present antihypertensives and when necessary medications --Mild hyperglycemia, probably stress related, A1c 6, closely monitor -- Peripheral neuropathy, Continue gabapentin --Substance abuse/alcohol/marijuana; counseling done patient strongly advised to quit, -- DVT prophylaxis --Full code Plan of care discussed with the patient and his at the bedside History Interval history: Patient seen and examined Medical records reviewed No new events reported by the staff Complains of mild pain in the knee Scheduled for arthrocentesis tomorrow Hospitalist Physical - Constitutional Vitals: Temp Pulse Resp BP Pulse Ox 98.3 F 96 H 22 110/66 97 10/07/17 16:27 10/07/17 16:27 10/07/17 16:27 10/07/17 16:27 10/07/17 16:27 General appearance: Present: no acute distress, well-nourished - EENT Eyes: Present: PERRL, EOM intact - Neck Neck: Present: supple, normal ROM - Respiratory Respiratory effort: normal Respiratory: negative: rales, rhonchi, wheezing - Cardiovascular Rhythm: regular Heart Sounds: Present: S1 & S2 - Extremities Extremities: no ischemia, abnormal (right knee swelling) Extremity abnormal: edema - Abdominal General gastrointestinal: soft, non-tender, non-distended, normal bowel sounds - Integumentary Integumentary: Present: clear, warm - Psychiatric Psychiatric: appropriate mood/affect, cooperative - Neurologic Neurologic: CNII-XII intact, moves all extremities Results - Labs CBC & Chem 7: 10/05/17 10:15 10/04/17 06:24 Labs: Laboratory Last Values WBC 6.7 K/mm3 (4.5-11.0) 10/05/17 10:15 RBC 3.06 M/mm3 (3.65-5.03) L 10/05/17 10:15 Hgb 10.9 gm/dl (11.8-15.2) L 10/05/17 10:15 Hct 32.4 % (35.5-45.6) L 10/05/17 10:15 MCV 106 fl (84-94) H 10/05/17 10:15 MCH 36 pg (28-32) H 10/05/17 10:15 MCHC 34 % (32-34) 10/05/17 10:15 RDW 15.2 % (13.2-15.2) 10/05/17 10:15 Plt Count 242 K/mm3 (140-440) 10/05/17 10:15 Lymph % (Auto) 23.1 % (13.4-35.0) 10/05/17 10:15 [place] % (Auto) 11.3 % (0.0-7.3) H 10/05/17 10:15 Eos % (Auto) 2.2 % (0.0-4.3) 10/05/17 10:15 Baso % (Auto) 1.1 % (0.0-1.8) 10/05/17 10:15 Lymph # 1.6 K/mm3 (1.2-5.4) 10/05/17 10:15 [place] # 0.8 K/mm3 (0.0-0.8) 10/05/17 10:15 Eos # 0.1 K/mm3 (0.0-0.4) 10/05/17 10:15 Baso # 0.1 K/mm3 (0.0-0.1) 10/05/17 10:15 Seg Neutrophils % 62.3 % (40.0-70.0) 10/05/17 10:15 Seg Neutrophils # 4.2 K/mm3 (1.8-7.7) 10/05/17 10:15 PT 14.9 Sec. (12.2-14.9) 10/05/17 06:00 INR 1.11 (0.87-1.13) 10/05/17 06:00 APTT 29.6 Sec. (24.2-36.6) 10/04/17 06:24 POC ABG pH 7.489 (7.35-7.45) H 09/28/17 18:33 POC ABG pCO2 26.6 (35-45) L 09/28/17 18:33 POC ABG pO2 58 (80-105) L 09/28/17 18:33 POC ABG HCO3 20.2 09/28/17 18:33 POC ABG Total CO2 21 09/28/17 18:33 POC ABG O2 Sat 92 09/28/17 18:33 POC ABG Base Excess -3 09/28/17 18:33 FiO2 21 % 09/28/17 18:33 Sodium 144 mmol/L (137-145) 10/04/17 06:24 Potassium 3.7 mmol/L (3.6-5.0) 10/04/17 06:24 Chloride 103.3 mmol/L (98-107) 10/04/17 06:24 Carbon Dioxide 24 mmol/L (22-30) 10/04/17 06:24 Anion Gap 20 mmol/L 10/04/17 06:24 BUN 2 mg/dL (9-20) L 10/04/17 06:24 Creatinine 0.9 mg/dL (0.8-1.5) 10/04/17 06:24 Estimated GFR > 60 ml/min 10/04/17 06:24 BUN/Creatinine Ratio 2 % 10/04/17 06:24 Glucose 130 mg/dL (75-100) H 10/04/17 06:24 POC Glucose 109 (70-105) H 10/06/17 16:25 Hemoglobin A1c 6.0 % (4-6) 09/28/17 17:09 Lactic Acid 1.40 mmol/L (0.7-2.0) 09/28/17 19:25 Calcium 8.9 mg/dL (8.4-10.2) 10/04/17 06:24 Magnesium 1.90 mg/dL (1.7-2.3) 09/29/17 04:06 Total Bilirubin 0.70 mg/dL (0.1-1.2) 09/29/17 04:06 Direct Bilirubin 0.2 mg/dL (0-0.2) 09/29/17 04:06 Indirect Bilirubin 0.5 mg/dL 09/29/17 04:06 AST 14 units/L (5-40) 09/29/17 04:06 ALT 8 units/L (7-56) 09/29/17 04:06 Alkaline Phosphatase 43 units/L (35-129) 09/29/17 04:06 Ammonia 55.0 umol/L (25-60) 09/29/17 04:23 Total Creatine Kinase 150 units/L (55-170) 09/29/17 14:57 CK-MB (CK-2) 3.4 ng/mL (0.0-4.0) 09/29/17 14:57 CK-MB (CK-2) Rel Index 2.2 (0-4) 09/29/17 14:57 Troponin T 0.094 ng/mL (0.00-0.029) H 09/29/17 14:57 NT-Pro-B Natriuret Pep 8683 pg/mL (0-900) H 09/28/17 17:05 Total Protein 6.8 g/dL (6.3-8.2) 09/29/17 04:06 Albumin 3.4 g/dL (3.9-5) L 09/29/17 04:06 Albumin/Globulin Ratio 1.0 % 09/29/17 04:06 Triglycerides 113 mg/dL (2-149) 09/28/17 17:05 Cholesterol 139 mg/dL (50-199) 09/28/17 17:05 LDL Cholesterol Direct 69 mg/dL (50-130) 09/28/17 17:05 HDL Cholesterol 48 mg/dL (40-59) 09/28/17 17:05 Cholesterol/HDL Ratio 2.89 % 09/28/17 17:05 Lipase 24 units/L (13-60) 09/28/17 17:05 TSH 0.755 mlU/mL (0.270-4.200) 09/28/17 16:47 Urine Color Yellow (Yellow) 09/28/17 17:48 Urine Turbidity Clear (Clear) 09/28/17 17:48 Urine pH 6.0 (5.0-7.0) 09/28/17 17:48 Ur Specific [place] 1.019 (1.003-1.030) 09/28/17 17:48 Urine Protein >500 mg/dL (Negative) 09/28/17 17:48 Urine Glucose (UA) Neg mg/dL (Negative) 09/28/17 17:48 Urine Ketones 20 mg/dL (Negative) 09/28/17 17:48 Urine Blood Neg (Negative) 09/28/17 17:48 Urine Nitrite Neg (Negative) 09/28/17 17:48 Urine Bilirubin Neg (Negative) 09/28/17 17:48 Urine Urobilinogen 4.0 mg/dL (<2.0) 09/28/17 17:48 Ur Leukocyte Esterase Neg (Negative) 09/28/17 17:48 Urine WBC (Auto) 1.0 /HPF (0.0-6.0) 09/28/17 17:48 Urine RBC (Auto) 4.0 /HPF (0.0-6.0) 09/28/17 17:48 U Epithel Cells (Auto) 1.0 /HPF (0-13.0) 09/28/17 17:48 Urine Mucus Few /HPF 09/28/17 17:48 Salicylates < 0.3 mg/dL (2.8-20.0) L 09/28/17 17:05 Urine Opiates Screen Presumptive negative 09/28/17 17:48 Urine Methadone Screen Presumptive negative 09/28/17 17:48 Acetaminophen < 15.0 ug/mL (10.0-30.0) 09/28/17 16:47 Ur Barbiturates Screen Presumptive negative 09/28/17 17:48 Ur Phencyclidine Scrn Presumptive negative 09/28/17 17:48 Ur Amphetamines Screen Presumptive negative 09/28/17 17:48 U Benzodiazepines Scrn Presumptive negative 09/28/17 17:48 Urine Cocaine Screen Presumptive negative 09/28/17 17:48 U Marijuana (THC) Screen Presumptive positive 09/28/17 17:48 Drugs of Abuse Note Disclamer 09/28/17 17:48 Plasma/Serum Alcohol < 0.01 gm% (0-0.07) 09/28/17 16:47
[2017-10-07] MEDS: HABITROL TD SCH (21:22)
[2017-10-07] MEDS: DILAUDID IV PRN (21:27)
[2017-10-08] MEDS: NEURONTIN PO SCH ×3 (08:00→21:17)
[2017-10-08] MEDS: LASIX IV SCH (09:14)
[2017-10-08] MEDS: COREG PO SCH ×2 (09:14→21:17)
[2017-10-08 11:08] LABS: Needle-Like FEW EXTRACELLULAR
--- NOTE | 2017-10-08 11:36 | History and Physical Report ---
History of Present Illness Date of examination: 10/08/17 Date of admission: 09/28/17 21:48 Chief complaint: FOCUSED NEUROLOGY CONSULT NOTE CC: I am asked to see this 72 yo AA M for AMS, now resolved, and poor gait. HPI: Hx reivewed in chart + from in room and patient. He was admitted 09/28/17 because of confusion and SOB. He was found to be in CHF with EF 20 - 25%, pO2 of 58 with resp alk, urine drug screen + for THC no ETOH. P02 on admission was 58. An MRI showed only sig volume loss, generalized and remote lacunes in both thalami. He also was found to have second degree heart block and was admitted in an episode of complete heart block and now has a pacemaker installed. He has been drinking 4 - 6 gin drinks q hs and more recently beer as well ? quantity. This has been going on for 3 years. No hx of focal neuro sx or sgns whatsoever. He has been Rxd with a banana bag. 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 Otherwise he sits or reclines in his recliner at home all day. He has severe bilateral knee paint as well for months and uses now a cand for the past 6 mos or so. No falls. No other joint pain. PHM: see above + pt has HTN, nad NIDDM@ with polyneuropathy ROS: as above + an 11 point ROS is negative EXAM: HEENT - nl neck - supple,no bruits Cor - no m, rubs Lungs - clear to A Abd - soft, bs nl Extrem - thin, no edema, no trauma NEURO EXAM: MS - alert, orented x 3, speech fluent and clear without errors, follows commands reasonable well and fairly quickly CN - 2 - 12 nl. Full EOM without nystagmus MOT - nl strenght both up prox and dist. He cannot lift either LE off the bed and knees are extremely sore (patient cries out) if knees are bent. Foot dorsiflexor strength 5-/5 biltaerally CEREB - fnf nl bilat DTRs - 1+ at biceps bilat, trace at knees bilat, absent AJs bilat, great toes downgoing bilat. GAIT - not tested due to fall risk DX IMP: 1. Encephalopathy, mulitfactorial on admission, largely if not completely resolved. Factors may have been low p02 58, complete heart block on admission, + EF 20 - 25%, + THC effect + withdrawal on admission. 2. Paraparesis of multifactorial mechanism. Principle factors are severe deconditioning and bilteral severe knee pain of as yet undetermined mechanism. RECC: 1. Pursue bilateral knee workup (he will have left knee joint aspiration today ). 2. Pursue PT as you are doing. 3. Go from there. Call as needed. Romeo Castañeda MD Past History Past Medical History: diabetes, hypertension Past Surgical History: cholecystectomy Social history: smoking, alcohol abuse Family history: hypertension Medications and Allergies Allergies Allergy/AdvReac Type Severity Reaction Status Date / Time No Known Allergies Allergy Verified 11/18/15 11:57 Home Medications Medication Instructions Recorded Confirmed Last Taken Type Lisinopril 20 mg PO BID 01/20/15 09/28/17 01/17/17 History Aspirin EC [Aspirin Enteric Coated 325 mg PO QDAY 01/18/17 09/28/17 01/17/17 History TAB] Carvedilol 6.25 mg PO BID 01/18/17 09/28/17 01/17/17 History Gabapentin [Neurontin] 600 mg PO TID 01/18/17 09/28/17 01/17/17 History Active Meds: Active Medications Acetaminophen (Tylenol) 650 mg PO Q4H PRN PRN Reason: Pain MILD(1-3)/Fever >100.5/COTTO Aspirin (Ecotrin) 325 mg PO QDAY [facility] Last Admin: 10/07/17 09:11 Dose: 325 mg Bisacodyl (Dulcolax) 10 mg UT QDAY PRN PRN Reason: Constipation unrelieved by MOM Carvedilol (Coreg) 6.25 mg PO BID [facility] Last Admin: 10/08/17 09:14 Dose: 6.25 mg Furosemide (Lasix) 40 mg IV QDAY@0800 [facility] Last Admin: 10/08/17 09:14 Dose: 40 mg Gabapentin (Neurontin) 600 mg PO TID [facility] Last Admin: 10/07/17 21:22 Dose: 600 mg Hydromorphone HCl (Dilaudid) 0.5 mg IV Q3H PRN PRN Reason: Pain , Severe (7-10) Last Admin: 10/07/17 21:27 Dose: 0.5 mg Lisinopril (Zestril) 20 mg PO BID [facility] Last Admin: 10/07/17 21:23 Dose: 20 mg Lorazepam (Ativan) 2 mg IV Q1H PRN PRN Reason: CIWA-Ar 8-15 Last Admin: 09/29/17 07:48 Dose: 2 mg Lorazepam (Ativan) 4 mg IV Q1H PRN PRN Reason: CIWA-Ar 16-25 Magnesium Hydroxide (Milk Of Magnesia) 30 ml PO Q4H PRN PRN Reason: Constipation Nicotine (Habitrol) 14 mg TD Q24H [facility] Last Admin: 10/07/17 21:22 Dose: 14 mg Ondansetron HCl (Zofran) 4 mg IV Q8H PRN PRN Reason: N/V unrelieved by Reglan Oxycodone/Acetaminophen (Percocet 5/325) 1 tab PO Q6H PRN PRN Reason: Pain, Moderate (4-6) Last Admin: 10/06/17 18:21 Dose: 1 tab Physical Examination - Vital Signs Vital Signs: Vital Signs Temp Pulse Resp BP Pulse Ox 99.4 F 48 L 20 178/80 97 09/28/17 16:14 09/28/17 16:14 09/28/17 16:14 09/28/17 16:14 09/28/17 16:14 Results - Laboratory Findings CBC and BMP: 10/05/17 10:15 10/04/17 06:24 Abnormal Lab Findings: Abnormal Labs 09/29/17 09/29/17 09/29/17 04:06 04:06 04:06 RBC Hgb Hct MCV 108 H MCH 36 H [place] % (Auto) 11.1 H [place] # 1.0 H Carbon Dioxide 19 L BUN Glucose 134 H POC Glucose Troponin T Albumin 3.4 L 3.4 L 09/29/17 09/29/17 09/29/17 04:06 08:12 09:52 RBC Hgb Hct MCV MCH [place] % (Auto) [place] # Carbon Dioxide BUN Glucose POC Glucose 185 H Troponin T 0.054 H D 0.115 H* D Albumin 09/29/17 09/29/17 09/29/17 13:17 14:57 17:54 RBC Hgb Hct MCV MCH [place] % (Auto) [place] # Carbon Dioxide BUN Glucose POC Glucose 175 H 135 H Troponin T 0.094 H Albumin 09/29/17 09/30/17 09/30/17 21:15 07:29 07:29 RBC 3.28 L Hgb 11.7 L Hct 34.8 L MCV 106 H MCH 36 H [place] % (Auto) [place] # Carbon Dioxide 19 L BUN Glucose 119 H POC Glucose 125 H Troponin T Albumin 09/30/17 09/30/17 09/30/17 09:09 12:40 17:24 RBC Hgb Hct MCV MCH [place] % (Auto) [place] # Carbon Dioxide BUN Glucose POC Glucose 127 H 145 H 123 H Troponin T Albumin 09/30/17 10/01/17 10/01/17 20:23 07:48 11:43 RBC Hgb Hct MCV MCH [place] % (Auto) [place] # Carbon Dioxide BUN Glucose POC Glucose 134 H 127 H 171 H Troponin T Albumin 10/01/17 10/01/17 10/02/17 16:36 20:41 08:26 RBC Hgb Hct MCV MCH [place] % (Auto) [place] # Carbon Dioxide BUN Glucose POC Glucose 142 H 138 H 126 H Troponin T Albumin 10/02/17 10/02/17 10/02/17 11:57 17:27 22:09 RBC Hgb Hct MCV MCH [place] % (Auto) [place] # Carbon Dioxide BUN Glucose POC Glucose 168 H 132 H 151 H Troponin T Albumin 10/03/17 10/03/17 10/03/17 07:59 11:41 15:48 RBC Hgb Hct MCV MCH [place] % (Auto) [place] # Carbon Dioxide BUN Glucose POC Glucose 143 H 155 H 167 H Troponin T Albumin 10/03/17 10/04/17 10/04/17 21:00 06:24 07:35 RBC Hgb Hct MCV MCH [place] % (Auto) [place] # Carbon Dioxide BUN 2 L Glucose 130 H POC Glucose 158 H 137 H Troponin T Albumin 10/04/17 10/04/17 10/05/17 11:44 21:38 08:10 RBC Hgb Hct MCV MCH [place] % (Auto) [place] # Carbon Dioxide BUN Glucose POC Glucose 108 H 130 H 125 H Troponin T Albumin 10/05/17 10/05/17 10/05/17 10:15 12:22 18:29 RBC 3.06 L Hgb 10.9 L Hct 32.4 L MCV 106 H MCH 36 H [place] % (Auto) 11.3 H [place] # Carbon Dioxide BUN Glucose POC Glucose 121 H 126 H Troponin T Albumin 10/05/17 10/06/17 10/06/17 21:28 07:46 12:33 RBC Hgb Hct MCV MCH [place] % (Auto) [place] # Carbon Dioxide BUN Glucose POC Glucose 111 H 144 H 192 H Troponin T Albumin 10/06/17 10/07/17 16:25 21:02 RBC Hgb Hct MCV MCH [place] % (Auto) [place] # Carbon Dioxide BUN Glucose POC Glucose 109 H 170 H Troponin T Albumin
--- NOTE | 2017-10-08 12:02 | Progress Note ---
Assessment and Plan Altered mental status Complete heart block Normal TSH s/p DC PPM ([facility]) Right knee pain/edema Non-ischemic cardiomyopathy Cath 12/2016 - Normal coronaries, LVEF 30% EF 20-25% on echo this admission pt considered not a candidate for primary prevention ICD as he continues to drink alcohol Non-specific troponin Hypertension Type II DM Alcohol abuse Marijuana abuse Recommend: Continue medical therapy for his non-ischemic cardiomyopathy. Subjective Date of service: 10/08/17 Principal diagnosis: Bradyarrhythmias Interval history: Patient has no chest pain or shortness of breath. Objective Vital Signs Temp Pulse Pulse Resp Resp BP BP 10/08/17 10:00 98 H 10/08/17 09:57 99 H 16 10/08/17 09:52 16 10/08/17 09:14 99 H 109/58 10/08/17 08:37 98.3 F 99 H 20 109/58 10/08/17 06:43 99.1 F 98 H 20 101/56 10/08/17 00:40 98.6 F 104 H 18 101/56 10/07/17 22:00 100 H 18 10/07/17 20:00 97.6 F 109 H 18 121/70 10/07/17 16:27 98.3 F 96 H 22 110/66 Pulse Ox 10/08/17 10:00 10/08/17 09:57 10/08/17 09:52 10/08/17 09:14 10/08/17 08:37 93 10/08/17 06:43 94 10/08/17 00:40 93 10/07/17 22:00 10/07/17 20:00 94 10/07/17 16:27 97 - Physical Examination General: No Apparent Distress HEENT: Positive: PERRL Cardiac: Positive: Other (paced)
[2017-10-08 12:15] LABS: Lymphocytes BF 5 %; Seg Neutrophils Body Fluid 85 %
[2017-10-08 12:16] LABS: Basophils Body Fluid 0 %; Eosinophils Body Fluid 0 %; Reactive Lymph Body Fluid 0 %
[2017-10-08] MEDS: ZESTRIL PO SCH ×2 (12:29→21:17)
[2017-10-08] MEDS: ECOTRIN PO SCH (12:30)
--- NOTE | 2017-10-08 12:47 | Progress Note ---
Assessment and Plan Assessment and plan: --Gouty arthritis/right knee joint effusion Manage with NSAIDs indomethacin, steroid and allopurinol Supportive care, arthrocentesis today, follow fluid analysis Orthopedic consultation as needed --Complete heart block status post permanent pacemaker placement Supportive care, cardiology following --Metabolic encephalopathy; improved, probably secondary to alcohol abuse. Patient is on [facility] protocol, supportive care, restraints for safety as needed --Acute on chronic systolic congestive heart failure; ejection fraction 20-25% Continue current anti-failure medications, cardiology following --Nonischemic cardiomyopathy; probably alcohol related Diuretics and manpreet inhibitors and beta blockers input and output monitoring --Hypertension; stable on antihypertensives --Mild hyperglycemia, probably stress related, A1c 6, -- Peripheral neuropathy, Continue gabapentin --Substance abuse/alcohol/marijuana; strongly advised to quit, -- DVT prophylaxis --Full code Plan of care discussed with the patient and his at the bedside Physical therapy occupational therapy DC planning ;Subacute rehabilitation when medically stable History Interval history: Patient seen and examined Medical records reviewed Schedule for right knee arthrocentesis Feels slightly better, no new complaints Hospitalist Physical - Constitutional Vitals: Temp Pulse Resp BP Pulse Ox 97.8 F 101 H 18 132/69 96 10/08/17 12:36 10/08/17 12:36 10/08/17 12:36 10/08/17 12:36 10/08/17 12:36 General appearance: Present: no acute distress, well-nourished - EENT Eyes: Present: PERRL, EOM intact - Neck Neck: Present: supple, normal ROM - Respiratory Respiratory effort: normal Respiratory: bilateral: diminished, negative: rales, rhonchi, wheezing - Cardiovascular Rhythm: regular Heart Sounds: Present: S1 & S2 - Extremities Extremities: no ischemia Extremity abnormal: edema, other (bilateral osteoarthritis, right knee joint effusion) - Abdominal General gastrointestinal: soft, non-tender, non-distended, normal bowel sounds - Integumentary Integumentary: Present: clear, warm - Psychiatric Psychiatric: appropriate mood/affect, cooperative - Neurologic Neurologic: CNII-XII intact, moves all extremities Results - Labs CBC & Chem 7: 10/05/17 10:15 10/04/17 06:24 Labs: Laboratory Last Values WBC 6.7 K/mm3 (4.5-11.0) 10/05/17 10:15 RBC 3.06 M/mm3 (3.65-5.03) L 10/05/17 10:15 Hgb 10.9 gm/dl (11.8-15.2) L 10/05/17 10:15 Hct 32.4 % (35.5-45.6) L 10/05/17 10:15 MCV 106 fl (84-94) H 10/05/17 10:15 MCH 36 pg (28-32) H 10/05/17 10:15 MCHC 34 % (32-34) 10/05/17 10:15 RDW 15.2 % (13.2-15.2) 10/05/17 10:15 Plt Count 242 K/mm3 (140-440) 10/05/17 10:15 Lymph % (Auto) 23.1 % (13.4-35.0) 10/05/17 10:15 [place] % (Auto) 11.3 % (0.0-7.3) H 10/05/17 10:15 Eos % (Auto) 2.2 % (0.0-4.3) 10/05/17 10:15 Baso % (Auto) 1.1 % (0.0-1.8) 10/05/17 10:15 Lymph # 1.6 K/mm3 (1.2-5.4) 10/05/17 10:15 [place] # 0.8 K/mm3 (0.0-0.8) 10/05/17 10:15 Eos # 0.1 K/mm3 (0.0-0.4) 10/05/17 10:15 Baso # 0.1 K/mm3 (0.0-0.1) 10/05/17 10:15 Seg Neutrophils % 62.3 % (40.0-70.0) 10/05/17 10:15 Seg Neutrophils # 4.2 K/mm3 (1.8-7.7) 10/05/17 10:15 PT 14.9 Sec. (12.2-14.9) 10/05/17 06:00 INR 1.11 (0.87-1.13) 10/05/17 06:00 APTT 29.6 Sec. (24.2-36.6) 10/04/17 06:24 POC ABG pH 7.489 (7.35-7.45) H 09/28/17 18:33 POC ABG pCO2 26.6 (35-45) L 09/28/17 18:33 POC ABG pO2 58 (80-105) L 09/28/17 18:33 POC ABG HCO3 20.2 09/28/17 18:33 POC ABG Total CO2 21 09/28/17 18:33 POC ABG O2 Sat 92 09/28/17 18:33 POC ABG Base Excess -3 09/28/17 18:33 FiO2 21 % 09/28/17 18:33 Sodium 144 mmol/L (137-145) 10/04/17 06:24 Potassium 3.7 mmol/L (3.6-5.0) 10/04/17 06:24 Chloride 103.3 mmol/L (98-107) 10/04/17 06:24 Carbon Dioxide 24 mmol/L (22-30) 10/04/17 06:24 Anion Gap 20 mmol/L 10/04/17 06:24 BUN 2 mg/dL (9-20) L 10/04/17 06:24 Creatinine 0.9 mg/dL (0.8-1.5) 10/04/17 06:24 Estimated GFR > 60 ml/min 10/04/17 06:24 BUN/Creatinine Ratio 2 % 10/04/17 06:24 Glucose 130 mg/dL (75-100) H 10/04/17 06:24 POC Glucose 170 (70-105) H 10/07/17 21:02 Hemoglobin A1c 6.0 % (4-6) 09/28/17 17:09 Lactic Acid 1.40 mmol/L (0.7-2.0) 09/28/17 19:25 Calcium 8.9 mg/dL (8.4-10.2) 10/04/17 06:24 Magnesium 1.90 mg/dL (1.7-2.3) 09/29/17 04:06 Total Bilirubin 0.70 mg/dL (0.1-1.2) 09/29/17 04:06 Direct Bilirubin 0.2 mg/dL (0-0.2) 09/29/17 04:06 Indirect Bilirubin 0.5 mg/dL 09/29/17 04:06 AST 14 units/L (5-40) 09/29/17 04:06 ALT 8 units/L (7-56) 09/29/17 04:06 Alkaline Phosphatase 43 units/L (35-129) 09/29/17 04:06 Ammonia 55.0 umol/L (25-60) 09/29/17 04:23 Total Creatine Kinase 150 units/L (55-170) 09/29/17 14:57 CK-MB (CK-2) 3.4 ng/mL (0.0-4.0) 09/29/17 14:57 CK-MB (CK-2) Rel Index 2.2 (0-4) 09/29/17 14:57 Troponin T 0.094 ng/mL (0.00-0.029) H 09/29/17 14:57 NT-Pro-B Natriuret Pep 8683 pg/mL (0-900) H 09/28/17 17:05 Total Protein 6.8 g/dL (6.3-8.2) 09/29/17 04:06 Albumin 3.4 g/dL (3.9-5) L 09/29/17 04:06 Albumin/Globulin Ratio 1.0 % 09/29/17 04:06 Triglycerides 113 mg/dL (2-149) 09/28/17 17:05 Cholesterol 139 mg/dL (50-199) 09/28/17 17:05 LDL Cholesterol Direct 69 mg/dL (50-130) 09/28/17 17:05 HDL Cholesterol 48 mg/dL (40-59) 09/28/17 17:05 Cholesterol/HDL Ratio 2.89 % 09/28/17 17:05 Lipase 24 units/L (13-60) 09/28/17 17:05 TSH 0.755 mlU/mL (0.270-4.200) 09/28/17 16:47 Urine Color Yellow (Yellow) 09/28/17 17:48 Urine Turbidity Clear (Clear) 09/28/17 17:48 Urine pH 6.0 (5.0-7.0) 09/28/17 17:48 Ur Specific [place] 1.019 (1.003-1.030) 09/28/17 17:48 Urine Protein >500 mg/dL (Negative) 09/28/17 17:48 Urine Glucose (UA) Neg mg/dL (Negative) 09/28/17 17:48 Urine Ketones 20 mg/dL (Negative) 09/28/17 17:48 Urine Blood Neg (Negative) 09/28/17 17:48 Urine Nitrite Neg (Negative) 09/28/17 17:48 Urine Bilirubin Neg (Negative) 09/28/17 17:48 Urine Urobilinogen 4.0 mg/dL (<2.0) 09/28/17 17:48 Ur Leukocyte Esterase Neg (Negative) 09/28/17 17:48 Urine WBC (Auto) 1.0 /HPF (0.0-6.0) 09/28/17 17:48 Urine RBC (Auto) 4.0 /HPF (0.0-6.0) 09/28/17 17:48 U Epithel Cells (Auto) 1.0 /HPF (0-13.0) 09/28/17 17:48 Urine Mucus Few /HPF 09/28/17 17:48 Fluid Type Synovial 10/08/17 10:20 Fluid Color Yellow 10/08/17 10:20 Fluid Appearance Cloudy 10/08/17 10:20 Fluid WBC 2375 /mm3 10/08/17 10:20 Fluid RBC 525 /mm3 10/08/17 10:20 Fluid Seg Neutrophils 85 % 10/08/17 10:20 Fluid Lymphocytes 5 % 10/08/17 10:20 Fluid Reactive Lymphs 0 % 10/08/17 10:20 Fluid Monocytes 10.0 % 10/08/17 10:20 Fluid Eosinophils 0 % 10/08/17 10:20 Fluid Basophils 0 % 10/08/17 10:20 Synovial Crystals Msu crystals (NONE SEEN) 10/08/17 10:20 Salicylates < 0.3 mg/dL (2.8-20.0) L 09/28/17 17:05 Urine Opiates Screen Presumptive negative 09/28/17 17:48 Urine Methadone Screen Presumptive negative 09/28/17 17:48 Acetaminophen < 15.0 ug/mL (10.0-30.0) 09/28/17 16:47 Ur Barbiturates Screen Presumptive negative 09/28/17 17:48 Ur Phencyclidine Scrn Presumptive negative 09/28/17 17:48 Ur Amphetamines Screen Presumptive negative 09/28/17 17:48 U Benzodiazepines Scrn Presumptive negative 09/28/17 17:48 Urine Cocaine Screen Presumptive negative 09/28/17 17:48 U Marijuana (THC) Screen Presumptive positive 09/28/17 17:48 Drugs of Abuse Note Disclamer 09/28/17 17:48 Plasma/Serum Alcohol < 0.01 gm% (0-0.07) 09/28/17 16:47
--- NOTE | 2017-10-08 15:00 | Fluoroscopy Report ---
Arthrocentesis of the right knee. History: Joint effusion. Procedure: The patient's skin surface overlying the medial joint space was prepped and draped using sterile technique. Local anesthetic was injected into the skin. An 18-gauge needle was advanced into the joint capsule. 55 cc of yellow slightly viscus joint fluid was aspirated. Samples were sent to the laboratory as ordered. The patient however the procedure well clinically.
[2017-10-08] MEDS: MILK OF MAGNESIA PO PRN (16:42)
[2017-10-08] MEDS: PERCOCET 5/325 PO PRN (16:43)
[2017-10-08] MEDS: DELTASONE PO SCH (21:17)
[2017-10-08] MEDS: INDOCIN PO SCH (21:17)
[2017-10-08] MEDS: HABITROL TD SCH (21:22)
[2017-10-09] MEDS: LASIX IV SCH (09:10)
[2017-10-09] MEDS: ZESTRIL PO SCH ×2 (09:10→21:34)
[2017-10-09] MEDS: DELTASONE PO SCH ×2 (09:10→21:34)
[2017-10-09] MEDS: ECOTRIN PO SCH (09:10)
[2017-10-09] MEDS: COREG PO SCH ×2 (09:12→21:34)
[2017-10-09] MEDS: ZYLOPRIM PO SCH (09:12)
[2017-10-09] MEDS: NEURONTIN PO SCH ×3 (09:13→21:34)
[2017-10-09] MEDS: INDOCIN PO SCH ×2 (09:27→21:34)
--- NOTE | 2017-10-09 13:18 | Progress Note ---
Assessment and Plan Altered mental status Complete heart block Normal TSH s/p DC PPM ([facility]) Right knee pain/edema Non-ischemic cardiomyopathy Cath 12/2016 - Normal coronaries, LVEF 30% EF 20-25% on echo this admission pt considered not a candidate for primary prevention ICD as he continues to drink alcohol Non-specific troponin Hypertension Type II DM Alcohol abuse Marijuana abuse Recommend: Continue medical therapy for his non-ischemic cardiomyopathy. Subjective Date of service: 10/09/17 Principal diagnosis: Bradyarrhythmias Interval history: Patient has no chest pain or shortness of breath. Objective Vital Signs Temp Pulse Resp BP BP Pulse Ox 10/09/17 12:34 97.8 F 60 18 144/65 98 10/09/17 10:00 90 16 10/09/17 09:12 88 114/65 10/09/17 09:10 88 114/65 10/09/17 08:22 97.9 F 88 18 114/65 97 10/09/17 05:52 98.8 F 91 H 20 102/55 98 10/09/17 05:50 90 97 10/09/17 05:49 98.8 F 91 H 20 102/55 98 10/09/17 03:14 98.9 F 99 H 17 101/57 94 10/09/17 02:04 98 H 95 10/08/17 22:01 98.7 F 17 10/08/17 22:00 18 10/08/17 21:00 110 H 101/53 96 10/08/17 16:30 97.9 F 104 H 18 117/59 94 - Physical Examination General: No Apparent Distress HEENT: Positive: PERRL Cardiac: Positive: Other (paced) Lungs: Positive: Decreased Breath Sounds Neuro: Positive: Grossly Intact Extremities: Absent: edema - Imaging and Cardiology EKG: report reviewed (Complete Heart Block)
--- NOTE | 2017-10-09 17:21 | Progress Note ---
Assessment and Plan Assessment and plan: --Gouty arthritis/right knee joint effusion s/p arthrocentesis Fluid analysis Positive for gout, on indomethacin, steroid and allopurinol Physical therapy occupational therapy and rehabilitation --Complete heart block status post permanent pacemaker placement Supportive care, cardiology following --Metabolic encephalopathy; improved, probably secondary to alcohol abuse. Symptoms resolved, EEG was ordered by neurology, continue supportive care --Acute on chronic systolic congestive heart failure; ejection fraction 20-25% Continue current anti-failure medications, cardiology following --Nonischemic cardiomyopathy; probably alcohol related Diuretics and manpreet inhibitors and beta blockers input and output monitoring --Hypertension; stable on antihypertensives --Mild hyperglycemia, probably stress related, A1c 6, -- Peripheral neuropathy, Continue gabapentin --Substance abuse/alcohol/marijuana; strongly advised to quit, -- DVT prophylaxis --Full code Possible discharge tomorrow to subacute rehabilitation Plan of care discussed with the patient and his at the bedside History Interval history: Patient seen and examined in his room medical records reviewed Patient feels slightly better, cheerful, lower extremity pain significantly improved On NSAIDs, steroids, allopurinol, receiving physical therapy Hospitalist Physical - Constitutional Vitals: Temp Pulse Resp BP Pulse Ox 97.9 F 89 18 114/66 98 10/09/17 16:35 10/09/17 16:35 10/09/17 16:35 10/09/17 16:35 10/09/17 16:35 General appearance: Present: no acute distress, well-nourished - EENT Eyes: Present: PERRL, EOM intact - Neck Neck: Present: supple, normal ROM - Respiratory Respiratory effort: normal Respiratory: bilateral: diminished, negative: rales, rhonchi, wheezing - Cardiovascular Rhythm: regular Heart Sounds: Present: S1 & S2 - Extremities Extremities: no ischemia, No edema, abnormal (right knee swelling significantly improved, bilateral arthritis) Extremity abnormal: edema Peripheral Pulses: within normal limits - Abdominal General gastrointestinal: soft, non-tender, non-distended, normal bowel sounds - Integumentary Integumentary: Present: clear, warm - Psychiatric Psychiatric: appropriate mood/affect, cooperative - Neurologic Neurologic: CNII-XII intact, focal deficits Results - Labs CBC & Chem 7: 10/05/17 10:15 10/04/17 06:24 Labs: Laboratory Last Values WBC 6.7 K/mm3 (4.5-11.0) 10/05/17 10:15 RBC 3.06 M/mm3 (3.65-5.03) L 10/05/17 10:15 Hgb 10.9 gm/dl (11.8-15.2) L 10/05/17 10:15 Hct 32.4 % (35.5-45.6) L 10/05/17 10:15 MCV 106 fl (84-94) H 10/05/17 10:15 MCH 36 pg (28-32) H 10/05/17 10:15 MCHC 34 % (32-34) 10/05/17 10:15 RDW 15.2 % (13.2-15.2) 10/05/17 10:15 Plt Count 242 K/mm3 (140-440) 10/05/17 10:15 Lymph % (Auto) 23.1 % (13.4-35.0) 10/05/17 10:15 [place] % (Auto) 11.3 % (0.0-7.3) H 10/05/17 10:15 Eos % (Auto) 2.2 % (0.0-4.3) 10/05/17 10:15 Baso % (Auto) 1.1 % (0.0-1.8) 10/05/17 10:15 Lymph # 1.6 K/mm3 (1.2-5.4) 10/05/17 10:15 [place] # 0.8 K/mm3 (0.0-0.8) 10/05/17 10:15 Eos # 0.1 K/mm3 (0.0-0.4) 10/05/17 10:15 Baso # 0.1 K/mm3 (0.0-0.1) 10/05/17 10:15 Seg Neutrophils % 62.3 % (40.0-70.0) 10/05/17 10:15 Seg Neutrophils # 4.2 K/mm3 (1.8-7.7) 10/05/17 10:15 PT 14.9 Sec. (12.2-14.9) 10/05/17 06:00 INR 1.11 (0.87-1.13) 10/05/17 06:00 APTT 29.6 Sec. (24.2-36.6) 10/04/17 06:24 POC ABG pH 7.489 (7.35-7.45) H 09/28/17 18:33 POC ABG pCO2 26.6 (35-45) L 09/28/17 18:33 POC ABG pO2 58 (80-105) L 09/28/17 18:33 POC ABG HCO3 20.2 09/28/17 18:33 POC ABG Total CO2 21 09/28/17 18:33 POC ABG O2 Sat 92 09/28/17 18:33 POC ABG Base Excess -3 09/28/17 18:33 FiO2 21 % 09/28/17 18:33 Sodium 144 mmol/L (137-145) 10/04/17 06:24 Potassium 3.7 mmol/L (3.6-5.0) 10/04/17 06:24 Chloride 103.3 mmol/L (98-107) 10/04/17 06:24 Carbon Dioxide 24 mmol/L (22-30) 10/04/17 06:24 Anion Gap 20 mmol/L 10/04/17 06:24 BUN 2 mg/dL (9-20) L 10/04/17 06:24 Creatinine 0.9 mg/dL (0.8-1.5) 10/04/17 06:24 Estimated GFR > 60 ml/min 10/04/17 06:24 BUN/Creatinine Ratio 2 % 10/04/17 06:24 Glucose 130 mg/dL (75-100) H 10/04/17 06:24 POC Glucose 158 (70-105) H 10/08/17 23:08 Hemoglobin A1c 6.0 % (4-6) 09/28/17 17:09 Lactic Acid 1.40 mmol/L (0.7-2.0) 09/28/17 19:25 Calcium 8.9 mg/dL (8.4-10.2) 10/04/17 06:24 Magnesium 1.90 mg/dL (1.7-2.3) 09/29/17 04:06 Total Bilirubin 0.70 mg/dL (0.1-1.2) 09/29/17 04:06 Direct Bilirubin 0.2 mg/dL (0-0.2) 09/29/17 04:06 Indirect Bilirubin 0.5 mg/dL 09/29/17 04:06 AST 14 units/L (5-40) 09/29/17 04:06 ALT 8 units/L (7-56) 09/29/17 04:06 Alkaline Phosphatase 43 units/L (35-129) 09/29/17 04:06 Ammonia 55.0 umol/L (25-60) 09/29/17 04:23 Total Creatine Kinase 150 units/L (55-170) 09/29/17 14:57 CK-MB (CK-2) 3.4 ng/mL (0.0-4.0) 09/29/17 14:57 CK-MB (CK-2) Rel Index 2.2 (0-4) 09/29/17 14:57 Troponin T 0.094 ng/mL (0.00-0.029) H 09/29/17 14:57 NT-Pro-B Natriuret Pep 8683 pg/mL (0-900) H 09/28/17 17:05 Total Protein 6.8 g/dL (6.3-8.2) 09/29/17 04:06 Albumin 3.4 g/dL (3.9-5) L 09/29/17 04:06 Albumin/Globulin Ratio 1.0 % 09/29/17 04:06 Triglycerides 113 mg/dL (2-149) 09/28/17 17:05 Cholesterol 139 mg/dL (50-199) 09/28/17 17:05 LDL Cholesterol Direct 69 mg/dL (50-130) 09/28/17 17:05 HDL Cholesterol 48 mg/dL (40-59) 09/28/17 17:05 Cholesterol/HDL Ratio 2.89 % 09/28/17 17:05 Lipase 24 units/L (13-60) 09/28/17 17:05 TSH 0.755 mlU/mL (0.270-4.200) 09/28/17 16:47 Urine Color Yellow (Yellow) 09/28/17 17:48 Urine Turbidity Clear (Clear) 09/28/17 17:48 Urine pH 6.0 (5.0-7.0) 09/28/17 17:48 Ur Specific [place] 1.019 (1.003-1.030) 09/28/17 17:48 Urine Protein >500 mg/dL (Negative) 09/28/17 17:48 Urine Glucose (UA) Neg mg/dL (Negative) 09/28/17 17:48 Urine Ketones 20 mg/dL (Negative) 09/28/17 17:48 Urine Blood Neg (Negative) 09/28/17 17:48 Urine Nitrite Neg (Negative) 09/28/17 17:48 Urine Bilirubin Neg (Negative) 09/28/17 17:48 Urine Urobilinogen 4.0 mg/dL (<2.0) 09/28/17 17:48 Ur Leukocyte Esterase Neg (Negative) 09/28/17 17:48 Urine WBC (Auto) 1.0 /HPF (0.0-6.0) 09/28/17 17:48 Urine RBC (Auto) 4.0 /HPF (0.0-6.0) 09/28/17 17:48 U Epithel Cells (Auto) 1.0 /HPF (0-13.0) 09/28/17 17:48 Urine Mucus Few /HPF 09/28/17 17:48 Fluid Type Synovial 10/08/17 10:20 Fluid Color Yellow 10/08/17 10:20 Fluid Appearance Cloudy 10/08/17 10:20 Fluid WBC 2375 /mm3 10/08/17 10:20 Fluid RBC 525 /mm3 10/08/17 10:20 Fluid Seg Neutrophils 85 % 10/08/17 10:20 Fluid Lymphocytes 5 % 10/08/17 10:20 Fluid Reactive Lymphs 0 % 10/08/17 10:20 Fluid Monocytes 10.0 % 10/08/17 10:20 Fluid Eosinophils 0 % 10/08/17 10:20 Fluid Basophils 0 % 10/08/17 10:20 Synovial Crystals Msu crystals (NONE SEEN) 10/08/17 10:20 Salicylates < 0.3 mg/dL (2.8-20.0) L 09/28/17 17:05 Urine Opiates Screen Presumptive negative 09/28/17 17:48 Urine Methadone Screen Presumptive negative 09/28/17 17:48 Acetaminophen < 15.0 ug/mL (10.0-30.0) 09/28/17 16:47 Ur Barbiturates Screen Presumptive negative 09/28/17 17:48 Ur Phencyclidine Scrn Presumptive negative 09/28/17 17:48 Ur Amphetamines Screen Presumptive negative 09/28/17 17:48 U Benzodiazepines Scrn Presumptive negative 09/28/17 17:48 Urine Cocaine Screen Presumptive negative 09/28/17 17:48 U Marijuana (THC) Screen Presumptive positive 09/28/17 17:48 Drugs of Abuse Note Disclamer 09/28/17 17:48 Plasma/Serum Alcohol < 0.01 gm% (0-0.07) 09/28/17 16:47
[2017-10-09] MEDS: MILK OF MAGNESIA PO PRN (17:37)
[2017-10-09] MEDS: PERCOCET 5/325 PO PRN (18:45)
[2017-10-09] MEDS: HABITROL TD SCH (21:33)
[2017-10-10] MEDS: NEURONTIN PO SCH ×2 (08:48→14:48)
[2017-10-10] MEDS: LASIX IV SCH (08:48)
[2017-10-10] MEDS: ZESTRIL PO SCH (09:05)
[2017-10-10] MEDS: COREG PO SCH (09:05)
[2017-10-10] MEDS: DELTASONE PO SCH (09:06)
[2017-10-10] MEDS: INDOCIN PO SCH (09:06)
[2017-10-10] MEDS: ECOTRIN PO SCH (09:06)
[2017-10-10] MEDS: ZYLOPRIM PO SCH (09:06)
--- NOTE | 2017-10-10 11:04 | Progress Note ---
Assessment and Plan Altered mental status Complete heart block Normal TSH s/p DC PPM ([facility]) Right knee pain/edema Non-ischemic cardiomyopathy Cath 12/2016 - Normal coronaries, LVEF 30% EF 20-25% on echo this admission pt considered not a candidate for primary prevention ICD as he continues to drink alcohol Non-specific troponin Hypertension Type II DM Alcohol abuse Marijuana abuse Continue medical therapy for his non-ischemic cardiomyopathy. Subjective Date of service: 10/10/17 Principal diagnosis: Bradyarrhythmias Interval history: Patient appears well. He has no chest pain or shortness of breath. Objective Vital Signs Temp Pulse Pulse Resp BP BP Pulse Ox 10/10/17 09:05 82 126/75 10/10/17 08:53 77 10/10/17 08:31 98.4 F 82 17 126/75 99 10/10/17 04:29 97.9 F 84 18 112/68 96 10/10/17 00:52 98.2 F 87 18 125/73 95 10/09/17 22:00 85 18 98 10/09/17 19:25 98.2 F 89 18 126/75 96 10/09/17 18:45 16 10/09/17 16:35 97.9 F 89 18 114/66 98 10/09/17 12:34 97.8 F 60 18 144/65 98 - Physical Examination General: No Apparent Distress HEENT: Positive: PERRL Cardiac: Positive: Other (V paced) Neuro: Positive: Weakness Extremities: Absent: edema - Imaging and Cardiology EKG: report reviewed (Complete Heart Block)
--- NOTE | 2017-10-10 12:15 | Discharge Summary ---
Providers - Providers Date of Admission: 09/28/17 21:48 Date of discharge: 10/10/17 Attending physician: JIMY GARCIA 09/29/17 02:39 Physical Therapy Evaluation and Treat [CONS] Routine Comment: Reason For Exam: debility 09/29/17 15:51 Consult to Physician [CONS] Routine Consulting Provider: MARLENE ROME Reason For Exam: unresponsive Place consult to:: Dr. Brooks Notified:: please call 10/03/17 13:56 Consult to Physician [CONS] Urgent Consulting Provider: DENIZ GLASS Reason For Exam: Change in mental status Place consult to:: Dr. Glass Notified:: Linnea GARCIA Phone number called:: Was contact made?: Yes If yes, spoke with:: Diamante-Office Time called:: 13:56 10/05/17 19:57 Consult to Interventional Radiology [CONS] Routine Consulting Provider: SHERWIN WOODWARD Reason For Exam: arthrocentesis L knee Place consult to:: Dr. Woodward Notified:: Donna SAM Phone number called:: Was contact made?: Yes If yes, spoke with:: Bre Time called:: 09:09 Comment:: REFFERED to Diagnostic Radiology INSTEAD 10/08/17 08:19 Consult to Physician [CONS] Routine Consulting Provider: TIMOTHY WILSON Reason For Exam: severe osteoarthritis rt knee Place consult to:: Dr. Wilson Notified:: Edda Phone number called:: [phone] Was contact made?: No Time called:: 16:43 Comment:: left voicemail for call back Primary care physician: GINA CARDONA Hospitalization Reason for admission: altered level of consciousness/metabolic encephalopathy Condition: Stable Pertinent studies: Head CT Chest x-ray Echocardiogram MRI brain Knee x-ray Arthrocentesis EEG Hospital course: 72-year-old male patient with chronic alcohol use was admitted through emergency room with altered level of consciousness and metabolic encephalopathy CT head negative for acute abnormality Nonspecific elevation of troponin, substance abuse with alcohol and marijuana Patient was closely monitored, evaluated by cardiology Patient had severe bradycardia, received dual-chamber pacemaker Patient had severe osteoarthritis with joint effusion, status post arthrocentesis, findings consistent with gouty arthritis, managed with NSAIDs steroids and allopurinol, symptoms significantly improved Received physical therapy occupational therapy Patient was placed on CIWA protocol Today he is comfortable in bed no new complaints, vital signs stable This [id number] evaluation physical examination done by me prior to discharge is on remarkable Patient will be discharged and transferred to alf facility Patient is hemodynamically and clinically stable at the time of discharge Discharge diagnosis: --Gouty arthritis/right knee joint effusion --Complete heart block status post permanent pacemaker placement --Metabolic encephalopathy; i --Acute on chronic systolic congestive heart failure; ejection fraction 20-25% --Nonischemic cardiomyopathy; --Hypertension; stable --Mild hyperglycemia, -- Peripheral neuropathy, --Substance abuse/alcohol/marijuana; strongly advised to quit, Disposition: DC/[place]-03 [facility] Time spent for discharge: 32 min Core Measure Documentation - Palliative Care Palliative Care/ Comfort Measures: Not Applicable - Core Measures Any of the following diagnoses?: none Exam - Constitutional Vitals: Temp Pulse Resp BP Pulse Ox 98.4 F 81 17 126/75 99 10/10/17 08:31 10/10/17 10:00 10/10/17 08:31 10/10/17 09:05 10/10/17 08:31 General appearance: Present: no acute distress, well-nourished - EENT Eyes: Present: PERRL, EOM intact - Neck Neck: Present: supple, normal ROM - Respiratory Respiratory effort: normal Respiratory: negative: rales, rhonchi, wheezing - Cardiovascular Rhythm: regular Heart Sounds: Present: S1 & S2 - Extremities Extremities: no ischemia, pulses intact - Abdominal General gastrointestinal: Present: soft, non-tender, non-distended, normal bowel sounds - Integumentary Integumentary: Present: clear, warm - Musculoskeletal Musculoskeletal: strength equal bilaterally - Psychiatric Psychiatric: appropriate mood/affect, cooperative - Neurologic Neurologic: CNII-XII intact, moves all extremities Plan Activity: advance as tolerated Diet: diabetic Additional Instructions: f/u Rheumatology for Gout. continue home Diabetes medications Follow up with: PRIMARY CAREMD [Referring] - 3-5 Days AMBAR ADAMS MD [Staff Physician] - 7 Days Forms: Pacemaker Exchange Prescriptions: Furosemide [Lasix TAB] 40 mg PO QDAY #30 tablet
[2017-10-10 13:04] VITALS: BP 130/70
--- NOTE | 2017-10-10 13:59 | Consultation ---
History of Present Illness Consult date: 10/10/17 History of present illness: spoke to the and went over discharge planning confusion is better and less memory loss since Tx initiated plan to continue same meds will follow up in the office may be discharged Past History Past Medical History: diabetes, hypertension Past Surgical History: cholecystectomy Social history: smoking, alcohol abuse Family history: hypertension Medications and Allergies Allergies Allergy/AdvReac Type Severity Reaction Status Date / Time No Known Allergies Allergy Verified 11/18/15 11:57 Home Medications Medication Instructions Recorded Confirmed Last Taken Type Lisinopril 20 mg PO BID 01/20/15 09/28/17 01/17/17 History Aspirin EC [Aspirin Enteric Coated 325 mg PO QDAY 01/18/17 09/28/17 01/17/17 History TAB] Gabapentin [Neurontin] 600 mg PO TID 01/18/17 09/28/17 01/17/17 History Allopurinol [Zyloprim] 100 mg PO QDAY tablet 10/10/17 Unknown Rx Carvedilol [Coreg] 6.25 mg PO BID tablet 10/10/17 Unknown Rx Furosemide [Lasix TAB] 40 mg PO QDAY #30 tablet 10/10/17 Unknown Rx Indomethacin [Indocin] 50 mg PO Q8H PRN capsule 10/10/17 Unknown Rx Nicotine [Habitrol] 14 mg TD Q24H patch 10/10/17 Unknown Rx predniSONE [Deltasone] 10 mg PO DAILY #14 tablet 10/10/17 Unknown Rx Active Meds: Active Medications Acetaminophen (Tylenol) 650 mg PO Q4H PRN PRN Reason: Pain MILD(1-3)/Fever >100.5/COTTO Allopurinol (Zyloprim) 100 mg PO QDAY [facility] Last Admin: 10/10/17 09:06 Dose: 100 mg Aspirin (Ecotrin) 325 mg PO QDAY [facility] Last Admin: 10/10/17 09:06 Dose: 325 mg Bisacodyl (Dulcolax) 10 mg [place] QDAY PRN PRN Reason: Constipation unrelieved by MOM Carvedilol (Coreg) 6.25 mg PO BID [facility] Last Admin: 10/10/17 09:05 Dose: 6.25 mg Furosemide (Lasix) 40 mg IV QDAY@0800 [facility] Last Admin: 10/10/17 08:48 Dose: 40 mg Gabapentin (Neurontin) 600 mg PO TID [facility] Last Admin: 10/10/17 08:48 Dose: 300 mg Hydromorphone HCl (Dilaudid) 0.5 mg IV Q3H PRN PRN Reason: Pain , Severe (7-10) Last Admin: 10/07/17 21:27 Dose: 0.5 mg Indomethacin (Indocin) 50 mg PO Q12HR [facility] Last Admin: 10/10/17 09:06 Dose: 50 mg Lisinopril (Zestril) 20 mg PO BID [facility] Last Admin: 10/10/17 09:05 Dose: 20 mg Lorazepam (Ativan) 2 mg IV Q1H PRN PRN Reason: CIWA-Ar 8-15 Last Admin: 09/29/17 07:48 Dose: 2 mg Lorazepam (Ativan) 4 mg IV Q1H PRN PRN Reason: CIWA-Ar 16-25 Magnesium Hydroxide (Milk Of Magnesia) 30 ml PO Q4H PRN PRN Reason: Constipation Last Admin: 10/09/17 17:37 Dose: 30 ml Nicotine (Habitrol) 14 mg TD Q24H [facility] Last Admin: 10/09/17 21:33 Dose: 14 mg Ondansetron HCl (Zofran) 4 mg IV Q8H PRN PRN Reason: N/V unrelieved by Reglan Oxycodone/Acetaminophen (Percocet 5/325) 1 tab PO Q6H PRN PRN Reason: Pain, Moderate (4-6) Last Admin: 10/09/17 18:45 Dose: 1 tab Prednisone (Deltasone) 20 mg PO BID [facility] Last Admin: 10/10/17 09:06 Dose: 20 mg Physical Examination - Vital Signs Vital Signs: Vital Signs Temp Pulse Resp BP Pulse Ox 99.4 F 48 L 20 178/80 97 09/28/17 16:14 09/28/17 16:14 09/28/17 16:14 09/28/17 16:14 09/28/17 16:14 Results - Laboratory Findings CBC and BMP: 10/05/17 10:15 10/04/17 06:24 Abnormal Lab Findings: Abnormal Labs 09/29/17 09/29/17 09/29/17 04:06 04:06 04:06 RBC Hgb Hct MCV 108 H MCH 36 H [place] % (Auto) 11.1 H [place] # 1.0 H Carbon Dioxide 19 L BUN Glucose 134 H POC Glucose Troponin T Albumin 3.4 L 3.4 L 09/29/17 09/29/17 09/29/17 04:06 08:12 09:52 RBC Hgb Hct MCV MCH [place] % (Auto) [place] # Carbon Dioxide BUN Glucose POC Glucose 185 H Troponin T 0.054 H D 0.115 H* D Albumin 09/29/17 09/29/17 09/29/17 13:17 14:57 17:54 RBC Hgb Hct MCV MCH [place] % (Auto) [place] # Carbon Dioxide BUN Glucose POC Glucose 175 H 135 H Troponin T 0.094 H Albumin 09/29/17 09/30/17 09/30/17 21:15 07:29 07:29 RBC 3.28 L Hgb 11.7 L Hct 34.8 L MCV 106 H MCH 36 H [place] % (Auto) [place] # Carbon Dioxide 19 L BUN Glucose 119 H POC Glucose 125 H Troponin T Albumin 09/30/17 09/30/17 09/30/17 09:09 12:40 17:24 RBC Hgb Hct MCV MCH [place] % (Auto) [place] # Carbon Dioxide BUN Glucose POC Glucose 127 H 145 H 123 H Troponin T Albumin 09/30/17 10/01/17 10/01/17 20:23 07:48 11:43 RBC Hgb Hct MCV MCH [place] % (Auto) [place] # Carbon Dioxide BUN Glucose POC Glucose 134 H 127 H 171 H Troponin T Albumin 10/01/17 10/01/17 10/02/17 16:36 20:41 08:26 RBC Hgb Hct MCV MCH [place] % (Auto) [place] # Carbon Dioxide BUN Glucose POC Glucose 142 H 138 H 126 H Troponin T Albumin 10/02/17 10/02/17 10/02/17 11:57 17:27 22:09 RBC Hgb Hct MCV MCH [place] % (Auto) [place] # Carbon Dioxide BUN Glucose POC Glucose 168 H 132 H 151 H Troponin T Albumin 10/03/17 10/03/17 10/03/17 07:59 11:41 15:48 RBC Hgb Hct MCV MCH [place] % (Auto) [place] # Carbon Dioxide BUN Glucose POC Glucose 143 H 155 H 167 H Troponin T Albumin 10/03/17 10/04/17 10/04/17 21:00 06:24 07:35 RBC Hgb Hct MCV MCH [place] % (Auto) [place] # Carbon Dioxide BUN 2 L Glucose 130 H POC Glucose 158 H 137 H Troponin T Albumin 10/04/17 10/04/17 10/05/17 11:44 21:38 08:10 RBC Hgb Hct MCV MCH [place] % (Auto) [place] # Carbon Dioxide BUN Glucose POC Glucose 108 H 130 H 125 H Troponin T Albumin 10/05/17 10/05/17 10/05/17 10:15 12:22 18:29 RBC 3.06 L Hgb 10.9 L Hct 32.4 L MCV 106 H MCH 36 H [place] % (Auto) 11.3 H [place] # Carbon Dioxide BUN Glucose POC Glucose 121 H 126 H Troponin T Albumin 10/05/17 10/06/17 10/06/17 21:28 07:46 12:33 RBC Hgb Hct MCV MCH [place] % (Auto) [place] # Carbon Dioxide BUN Glucose POC Glucose 111 H 144 H 192 H Troponin T Albumin 10/06/17 10/07/17 10/08/17 16:25 21:02 07:50 RBC Hgb Hct MCV MCH [place] % (Auto) [place] # Carbon Dioxide BUN Glucose POC Glucose 109 H 170 H 141 H Troponin T Albumin 10/08/17 10/08/17 10/08/17 11:59 16:08 23:08 RBC Hgb Hct MCV MCH [place] % (Auto) [place] # Carbon Dioxide BUN Glucose POC Glucose 149 H 216 H 158 H Troponin T Albumin 10/09/17 10/09/17 10/09/17 07:52 11:43 16:30 RBC Hgb Hct MCV MCH [place] % (Auto) [place] # Carbon Dioxide BUN Glucose POC Glucose 198 H 322 H 328 H Troponin T Albumin 10/09/17 10/10/17 21:44 07:44 RBC Hgb Hct MCV MCH [place] % (Auto) [place] # Carbon Dioxide BUN Glucose POC Glucose 292 H 242 H Troponin T Albumin
== END 2017-10-10 16:00 | DRG 242 ==
LOC: ED 16:03 → 4A 21:48 → UNDODISIN 09-30 12:30
PROVIDERS: ADMIT Internal Medicine; ATTEND Internal Medicine
PROC: 4A033R1 Measurement of Arterial Saturation, Peripheral, Percutaneous Approach (ICD-10-PCS; principal; 2017-09-28)
PROC: 0JH606Z Insertion of Pacemaker, Dual Chamber into Chest Subcutaneous Tissue and Fascia, Open Approach (ICD-10-PCS; 2017-10-05)
PROC: 02H63JZ Insertion of Pacemaker Lead into Right Atrium, Percutaneous Approach (ICD-10-PCS; 2017-10-05)
PROC: 02HK3JZ Insertion of Pacemaker Lead into Right Ventricle, Percutaneous Approach (ICD-10-PCS; 2017-10-05)
PROC: 0S9C3ZZ Drainage of Right Knee Joint, Percutaneous Approach (ICD-10-PCS; 2017-10-08)
DX: I44.2 Atrioventricular block, complete (principal); I50.23 Acute on chronic systolic (congestive) heart failure; G92 Toxic encephalopathy; I42.8 Other cardiomyopathies; E11.42 Type 2 diabetes mellitus with diabetic polyneuropathy; F17.200 Nicotine dependence, unspecified, uncomplicated; M19.90 Unspecified osteoarthritis, unspecified site; F10.10 Alcohol abuse, uncomplicated; F12.10 Cannabis abuse, uncomplicated; Y90.9 Presence of alcohol in blood, level not specified; E11.65 Type 2 diabetes mellitus with hyperglycemia; M25.461 Effusion, right knee; M17.11 Unilateral primary osteoarthritis, right knee; M10.9 Gout, unspecified; Z90.49 Acquired absence of other specified parts of digestive tract; Z72.89 Other problems related to lifestyle; Z82.49 Family history of ischemic heart disease and other diseases of the circulatory system; Z71.41 Alcohol abuse counseling and surveillance of alcoholic; Z79.82 Long term (current) use of aspirin; Z79.899 Other long term (current) drug therapy; Z79.2 Long term (current) use of antibiotics; G31.2 Degeneration of nervous system due to alcohol; Z71.51 Drug abuse counseling and surveillance of drug abuser
CPT/HCPCS: 33208; 36415; 70450; 70551; 71010; 77002; 80048; 80053; 80061; 80074; 80307; 80320; 81001; 82140; 82550; 82553; 82803; 82962; 83036; 83690; 83735; 83880; 84443; 84484; 85025; 85027; 85048; 85610; 85730; 87040; 87086; 89051; 93005; 93010; 93306; 95819; 96374; 99406; C1769; C1779; C1781; C1785; C1892; G0480; G8978-GP; G8979-GP; J0690; J1170; J1650; J1940; J2060; J2250; J2704; J3370; J7030; J7512

== ENCOUNTER 2017-12-25 09:33 | Outpatient (CLI) | payer MEDICARE ==
[2017-12-25 10:03] LABS: Blood Urea Nitrogen 22 mg/dL (9-20)
--- NOTE | 2017-12-25 13:32 | Cat Scan Report ---
CT ABDOMEN PELVIS WITH CONTRAST: HISTORY: Diverticulosis. COMPARISON: 07/29/17. TECHNIQUE: Helical CT in 1.25mm intervals following IV contrast. Sagittal and coronal reconstructions. FINDINGS: Lung bases: Well-aerated. Liver: Normal. Biliary system: Cholecystectomy changes. No biliary dilatation is appreciated. Pancreas: There are a few focal calcifications in the pancreatic head suggesting minimal chronic pancreatitis. No acute inflammatory changes or mass is identified. Spleen: Normal. Kidneys/ureters/bladder: There are focal areas of cortical scarring near the superior poles of both kidney and inferior pole of the right kidney. No evidence for cystic disease, mass, calculus or hydronephrosis. The ureters and bladder are within normal limits. Normal prostate gland. Adrenal glands: Normal. Aorta: Normal. Intestines: Acute diverticulitis of the distal transverse and proximal descending colon have resolved since the previous exam. There are innumerable diverticula in the cecum, descending colon, distal transverse colon and ascending colon. No acute inflammatory changes are appreciated on today's exam. No obstruction or focal bowel wall thickening. Appendix: Not confidently identified, correlate with surgical history. Pelvic viscera: Normal. Ascites: None. Adenopathy: None. Musculoskeletal: Moderate lumbar spondylosis is noted. IMPRESSION: Extensive diverticulosis of the colon but no evidence for acute diverticulitis. Mild findings of chronic pancreatitis. Focal renal cortical scarring bilaterally, chronic. Probable appendectomy, cholecystectomy. No acute inflammatory process is appreciated.
== END 2017-12-25 09:34 | disposition home or self-care (01) ==
LOC: CT 09:33
PROVIDERS: ATTEND Internal Medicine Gastroenterology
DX: K57.90 Diverticulosis of intestine, part unspecified, without perforation or abscess without bleeding (principal); K86.1 Other chronic pancreatitis; N28.89 Other specified disorders of kidney and ureter; R93.3 Abnormal findings on diagnostic imaging of other parts of digestive tract; M47.896 Other spondylosis, lumbar region; Z90.49 Acquired absence of other specified parts of digestive tract
CPT/HCPCS: 36415; 74177; 82565; 84520; Q9967

== ENCOUNTER 2019-01-15 07:33 | Day surgery (SDC) | payer MEDICARE ==
[2019-01-15] MEDS ORDERED: ECOTRIN PO NR (08:08)
[2019-01-15] MEDS ORDERED: ECOTRIN PO ONE (08:32)
[2019-01-15] MEDS ORDERED: NACL 0.9% 500 ML 500 ML ONE (08:32)
[2019-01-15 08:46] LABS: Basophils # (Auto) 0.1 K/mm3 (0.0-0.1); Basophils % (Auto) 0.8 % (0.0-1.8); Eosinophils # (Auto) 0.2 K/mm3 (0.0-0.4); Eosinophils % (Auto) 2.4 % (0.0-4.3); Hemoglobin 13.6 gm/dl (11.8-15.2); Lymphocytes # (Auto) 2.5 K/mm3 (1.2-5.4); Lymphocytes % (Auto) 37.1 % (13.4-35.0); Mean Corpuscular HGB Conc 34 % (32-34); Mean Corpuscular Volume 104 fl (84-94); Monocytes # (Auto) 0.4 K/mm3 (0.0-0.8); Monocytes % (Auto) 5.9 % (0.0-7.3); Platelet Count 216 K/mm3 (140-440); Red Blood Count 3.85 M/mm3 (3.65-5.03); Red Cell Distribution Width 14.2 % (13.2-15.2)
[2019-01-15 08:57] LABS: BUN/Creatinine Ratio 16; Blood Urea Nitrogen 16 mg/dL (9-20); Calcium 9.4 mg/dL (8.4-10.2); Hemolysis Index 38; INR 0.87 (0.87-1.13)
[2019-01-15 08:58] LABS: Partial Thromboplastin Time 22.9 Sec. (24.2-36.6)
[2019-01-15] MEDS ORDERED: NACL 0.9% 500 ML 500 ML IV SCH (09:00)
[2019-01-15] MEDS ORDERED: HEPARIN/NS 5000 UNIT/500ML(CATH LAB) 1,000 ML IR ONE (10:33)
[2019-01-15] MEDS ORDERED: VERSED ONE (10:34)
[2019-01-15] MEDS ORDERED: SUBLIMAZE ONE (10:34)
[2019-01-15] MEDS ORDERED: NITROGLYCERIN SYRINGE 3 ML ONE (10:35)
[2019-01-15] MEDS: XYLOCAINE 2% INFILTRATI ONE ×2 (11:10→11:12)
[2019-01-15] MEDS: CALAN ONE ×2 (11:10→11:12)
[2019-01-15] MEDS: HEPARIN 10,000 UNITS/10 ML ONE ×2 (11:10→11:12)
--- NOTE | 2019-01-15 12:07 | Short Stay Summary ---
Short Stay Documentation Date of service: 01/15/19 - History H&P: obtained from office - Allergies and Medications Current Medications: Allergies No Known Allergies Allergy (Verified 07/30/18 14:14) Home Medications Medication Instructions Recorded Confirmed Last Taken Type Lisinopril 2.5 mg PO DAILY 01/20/15 01/15/19 01/14/19 History 2.5mg Gabapentin [Neurontin] 600 mg PO TID 01/18/17 01/15/19 01/14/19 History 600mg Carvedilol 25 mg PO DAILY 07/30/18 01/15/19 01/14/19 History 25mg Megestrol [Megace] 40 mg PO DAILY 07/30/18 01/15/19 01/14/19 History 40mg Metformin HCl [Glucophage] 1,000 mg PO BID 07/30/18 01/15/19 01/14/19 History 1000mg Aspirin EC [Aspirin Enteric Coated 81 mg PO DAILY 01/15/19 01/15/19 01/14/19 History TAB] 81mg Active Medications Aspirin (Ecotrin) 325 mg PO ONCE NR Stop: 01/15/19 13:00 Last Admin: 01/15/19 08:38 Dose: 325 mg Documented by: Sodium Chloride (Nacl 0.9% 500 Ml) 500 mls @ 50 mls/hr IV DIRECT COCO Stop: 01/15/19 18:59 Last Admin: 01/15/19 08:36 Dose: 50 mls/hr Documented by: - Physical exam General appearance: no acute distress Integumentary: no rash HEENT: Atraumatic Lungs: Clear to auscultation Breasts: deferred Heart: Regular rate Gastrointestinal: normal Male Genitourinary: deferred Female Genitourinary: deferred Rectal Exam: deferred Extremities: no ischemia Neurological: Normal gait - Brief post op/procedure progress note Date of procedure: 01/15/19 Pre-op diagnosis: Cardiomyopathy Post-op diagnosis: same Procedure: LHC, LV Anesthesia: MAC Findings: See report Surgeon: INDER ALMENDAREZ Estimated blood loss: none Pathology: none Condition: stable - Hospital course Hospital course: Uneventful - Disposition Condition at discharge: Good Disposition: DC-01 TO HOME OR SELFCARE Short Stay Discharge Plan Activity: advance as tolerated Weight Bearing Status: Partial Weight Bearing Diet: low fat, low cholesterol, low salt, diabetic Wound: keep clean and dry Special Instructions: hold Metformin (for 48 hours) Follow up with: GINA CARDONA MD [Primary Care Provider] - 7 Days
--- NOTE | 2019-01-15 12:29 | Cardiac Catherization Report ---
ORDERING PHYSICIAN: Jameel Hammond MD INDICATION FOR PROCEDURE: Cardiomyopathy. PROCEDURES PERFORMED: 1. Selective left and right coronary angiography. 2. Left ventriculography. DESCRIPTION OF PROCEDURE: After obtaining the consent, the patient was draped using sterile technique. A 2% lidocaine was injected into the right wrist. A 5-Montenegrin vascular sheath was inserted into the right radial artery. A 5-[place] JL3.5 catheter was used to selectively engage left coronary artery. A 5-[place] JR4 catheter was used to selectively engage the right coronary artery. A 5-[place] JR4 catheter was used to hand inject the left ventriculogram. No complications occurred during the procedure. Hemostasis was achieved at the end of the procedure using manual pressure. SPECIMEN REMOVED: None. ESTIMATED BLOOD LOSS: Minimal. SEDATION ADMINISTERED: 1 mg of IV Versed and 50 mcg of IV fentanyl. Physician/patient [id number] sedation start time 11:05 a.m. Physician/patient [id number] sedation stop time 11:20 a.m. Total sedation time is 15 minutes. FINDINGS: HEMODYNAMICS: Aortic pressure 14/57, LV systolic pressure 123 mmHg, LVEDP 14 mmHg. There was no significant gradient noted across left ventricular outflow tract. CARDIAC STRUCTURES: The left ventricular cavity is normal in size. The left ventricular ejection fraction is estimated at 40-45%. CORONARY ANATOMY: 1. This is a right dominant circulation. 2. Left main is angiographically normal. 3. LAD is angiographically normal. 4. Left circumflex artery is angiographically normal. 5. Coronary artery is angiographically normal. IMPRESSION: 1. Angiographically normal coronary circulation. 2. LVEF estimated at 45-50%. 2. LVEDP is measured at 14 mmHg. RECOMMENDATIONS: Follow up with the referring facility manager. JOB# [id number] FREDERICK/CHRISTINE
[2019-01-15 14:07] VITALS: BP 116/64
== END 2019-01-15 14:22 | disposition home or self-care (01) ==
LOC: CATHLABREC 07:33
PROVIDERS: ATTEND Internal Medicine Cardiovascular Disease
DX: I42.0 Dilated cardiomyopathy (principal); I11.0 Hypertensive heart disease with heart failure; I50.9 Heart failure, unspecified; G93.40 Encephalopathy, unspecified; F17.210 Nicotine dependence, cigarettes, uncomplicated; D64.9 Anemia, unspecified; I25.10 Atherosclerotic heart disease of native coronary artery without angina pectoris; E11.51 Type 2 diabetes mellitus with diabetic peripheral angiopathy without gangrene; M19.90 Unspecified osteoarthritis, unspecified site; M17.0 Bilateral primary osteoarthritis of knee; Z79.82 Long term (current) use of aspirin; Z79.899 Other long term (current) drug therapy; Z98.890 Other specified postprocedural states; Z98.41 Cataract extraction status, right eye; Z98.42 Cataract extraction status, left eye; Z90.49 Acquired absence of other specified parts of digestive tract; Z80.8 Family history of malignant neoplasm of other organs or systems; Z82.49 Family history of ischemic heart disease and other diseases of the circulatory system; Z86.73 Personal history of transient ischemic attack (TIA), and cerebral infarction without residual deficits; Z86.2 Personal history of diseases of the blood and blood-forming organs and certain disorders involving the immune mechanism; Z80.42 Family history of malignant neoplasm of prostate
CPT/HCPCS: 36415; 80048; 85025; 85610; 85730; 93005; 93010; 93458; 99156; C1894; J1644; J2250; J3010; J7040; Q9967

== ENCOUNTER 2021-04-22 05:00 | Inpatient (IN) | payer MEDICARE ==
[2021-04-22] MEDS ORDERED: SODIUM CHLORIDE 0.9% 1000 ML 1,000 ML IV ONE ×2 (05:11→07:13)
[2021-04-22 05:33] LABS: Basophils % (Auto) 0.6 % (0.0-1.8); Eosinophils # (Auto) 0.3 K/mm3 (0.0-0.4); Eosinophils % (Auto) 3.7 % (0.0-4.3); Hemoglobin 9.1 gm/dl (11.8-15.2); Lymphocytes # (Auto) 1.5 K/mm3 (1.2-5.4); Lymphocytes % (Auto) 20.7 % (13.4-35.0); Mean Corpuscular HGB Conc 34 % (32-34); Mean Corpuscular Volume 96 fl (84-94); Monocytes # (Auto) 0.2 K/mm3 (0.0-0.8); Monocytes % (Auto) 2.6 % (0.0-7.3); Platelet Count 259 K/mm3 (140-440); Red Blood Count 2.82 M/mm3 (3.65-5.03); Red Cell Distribution Width 16.4 % (13.2-15.2)
[2021-04-22 05:55] LABS: Alanine Aminotransferase 8 units/L (7-56); BUN/Creatinine Ratio 9; Blood Urea Nitrogen 9 mg/dL (9-20); Calcium 8.2 mg/dL (8.4-10.2); Hemolysis Index 4
--- NOTE | 2021-04-22 06:29 | Emergency Department Report ---
HPI - General Chief Complaint: GI Bleed Time Seen by Provider: 04/22/21 06:10 - HPI HPI: Room 22 The patient is a 75-year-old male present with a chief complaint of rectal bleeding. The patient states that approximately 03: 00 this morning he had a bowel movement and noticed a lot of blood in his stool. 1 hour later the patient attempted to go to the bathroom again but felt dizzy and fell to the ground before making it to the bathroom and passed a large amount of blood per rectum while on the floor. Patient missed an episode of nausea vomiting but denies hematemesis/coffee-ground emesis. The patient states he was diagnosed with diverticulitis approximately 2 weeks ago and is still taking antibiotics. Patient complains of lower abdominal pain greatest on the left side. EMS was called to the home and found the patient hypotensive with a blood pressure of 90/60. Upon arrival to the ED the patient's blood pressure had improved to 143/87 with IV fluids. Patient has a history of lung CA last received chemotherapy 4 days ago and radiation 2 days ago ED Past Medical Hx - Past Medical History Previous Medical History?: Yes Hx Hypertension: Yes (2013) Hx Heart Attack/AMI: Yes (x2) Hx Diabetes: Yes Hx of Cancer: Yes (Lung Cancer on chemo/xrt) Hx Arthritis: Yes (knees) Additional medical history: Diverticulitis - Surgical History Hx Pacemaker: Yes Hx Cholecystectomy: Yes (2005) - Family History Family history: no significant - Social History Smoking Status: Current Every Day Smoker (1 pack/day) Substance Use Type: Marijuana - Medications Home Medications: Home Medications Medication Instructions Recorded Confirmed Last Taken Type Amoxicillin [Amoxicillin TAB] 875 mg PO BID 04/22/21 04/22/21 04/21/21 History Aspirin [Aspirin BABY CHEW TAB] 81 mg PO QDAY 04/22/21 04/22/21 04/21/21 History Dicyclomine [Bentyl] 20 mg PO BID 04/22/21 04/22/21 04/21/21 History Gabapentin [Neurontin] 600 mg PO Q8H 04/22/21 04/22/21 04/21/21 History Lisinopril [Zestril TAB] 2.5 mg PO DAILY 04/22/21 04/22/21 04/21/21 History Mirtazapine [Remeron] 15 mg PO HS 04/22/21 04/22/21 04/21/21 History Ondansetron HCl [Zofran] 4 mg PO DAILY PRN 04/22/21 04/22/21 04/21/21 History Pantoprazole [Protonix] 40 mg PO QDAY 04/22/21 04/22/21 04/21/21 History Pantoprazole [Protonix] 40 mg PO QDAY 04/22/21 04/22/21 04/21/21 History carvediloL [Coreg] 12.5 mg PO BID 04/22/21 04/22/21 04/21/21 History metroNIDAZOLE [Flagyl] 500 mg PO Q12HR 04/22/21 04/22/21 04/21/21 History ED Review of Systems ROS: Stated complaint: RECTAL BLEED Other details as noted in HPI Constitutional: no symptoms reported Eyes: denies: eye pain ENT: denies: throat pain Respiratory: no symptoms reported Cardiovascular: denies: chest pain Endocrine: no symptoms reported Gastrointestinal: abdominal pain, nausea, vomiting, hematochezia. denies: hematemesis Genitourinary: denies: dysuria Musculoskeletal: denies: back pain Neurological: denies: headache Physical Exam - Physical Exam Vital Signs: Vital Signs 04/22/21 05:00 Temperature 97.6 F Pulse Rate 78 Respiratory 17 Rate Blood Pressure 143/87 [Right] O2 Sat by Pulse 100 Oximetry Physical Exam: GENERAL: The patient is well-developed well-nourished male lying on stretcher not appearing to be in acute distress. [] HEENT: Normocephalic. Atraumatic. Extraocular motions are intact. Patient has moist mucous membranes. NECK: Supple. Trachea midline CHEST/LUNGS: Clear to auscultation. There is no respiratory distress noted. HEART/CARDIOVASCULAR: Regular. There is no tachycardia. There is no gallop rub or murmur. ABDOMEN: Abdomen is soft, with diffuse lower abdominal tenderness greatest on the left side. There is no rebound or guarding. Patient has normal bowel sounds. There is no abdominal distention. SKIN: There is no rash. There is no edema. There is no diaphoresis. NEURO: The patient is awake, alert, and oriented. The patient is cooperative. The patient has no focal neurologic deficits. The patient has normal speech MUSCULOSKELETAL: There is no evidence of acute injury. RECTAL: Guaiac positive maroon stool ED Course Vital Signs 04/22/21 05:00 Temperature 97.6 F Pulse Rate 78 Respiratory 17 Rate Blood Pressure 143/87 [Right] O2 Sat by Pulse 100 Oximetry - Consultations Consultation #1: 04/22/21 07:09 Case discussed with architect internship Dr. Zamarripa- will consult. Recommends CT angio abdomen pelvis ED Medical Decision Making - Lab Data Result diagrams: 04/22/21 05:15 04/22/21 05:15 Laboratory Tests 04/22/21 04/22/21 04/22/21 05:15 05:15 05:15 WBC 7.2 RBC 2.82 L Hgb 9.1 L Hct 27.0 L MCV 96 H MCH 32 MCHC 34 RDW 16.4 H Plt Count 259 Lymph % (Auto) 20.7 [place] % (Auto) 2.6 Eos % (Auto) 3.7 Baso % (Auto) 0.6 Lymph # (Auto) 1.5 [place] # (Auto) 0.2 Eos # (Auto) 0.3 Baso # (Auto) 0.0 Seg Neutrophils % 72.4 H Seg Neutrophils # 5.2 Sodium 140 Potassium 4.0 Chloride 107.5 H Carbon Dioxide 21 L Anion Gap 16 BUN 9 Creatinine 1.0 Estimated GFR > 60 BUN/Creatinine Ratio 9 Glucose 175 H Calcium 8.2 L Total Bilirubin 0.30 AST 11 ALT 8 Alkaline Phosphatase 60 Total Protein 6.3 Albumin 3.0 L Albumin/Globulin Ratio 0.9 Blood Type O POSITIVE Antibody Screen Negative - Differential Diagnosis GI bleed Critical care attestation.: If time is entered above; I have spent that time in minutes in the direct care of this critically ill patient, excluding procedure time. ED Disposition Clinical Impression: GI bleed, Orthostatic hypotension Disposition: -09 OP ADMIT IP TO THIS HOSP Is pt being admited?: Yes Does the pt Need Aspirin: No Condition: Fair Referrals: KEILA POPE MD [Primary Care Provider] - 3-5 Days Forms: Accompanied Note Time of Disposition: 07:14 (Hospitalist paged (Dr. Thompson))
[2021-04-22 07:35] LABS: INR 1.1 (0.87-1.13)
[2021-04-22 07:36] LABS: Partial Thromboplastin Time 31.6 Sec. (24.2-36.6)
--- NOTE | 2021-04-22 07:41 | Progress Note ---
Hospitalist Physical - Constitutional Vitals: Temp Pulse Resp BP Pulse Ox 97.6 F 81 14 111/55 100 04/22/21 05:00 04/22/21 07:30 04/22/21 07:30 04/22/21 07:30 04/22/21 07:30 Results - Labs CBC & Chem 7: 04/22/21 05:15 04/22/21 05:15 Labs: Laboratory Last Values WBC 7.2 K/mm3 (4.5-11.0) 04/22/21 05:15 RBC 2.82 M/mm3 (3.65-5.03) L 04/22/21 05:15 Hgb 9.1 gm/dl (11.8-15.2) L 04/22/21 05:15 Hct 27.0 % (35.5-45.6) L 04/22/21 05:15 MCV 96 fl (84-94) H 04/22/21 05:15 MCH 32 pg (28-32) 04/22/21 05:15 MCHC 34 % (32-34) 04/22/21 05:15 RDW 16.4 % (13.2-15.2) H 04/22/21 05:15 Plt Count 259 K/mm3 (140-440) 04/22/21 05:15 Lymph % (Auto) 20.7 % (13.4-35.0) 04/22/21 05:15 [place] % (Auto) 2.6 % (0.0-7.3) 04/22/21 05:15 Eos % (Auto) 3.7 % (0.0-4.3) 04/22/21 05:15 Baso % (Auto) 0.6 % (0.0-1.8) 04/22/21 05:15 Lymph # (Auto) 1.5 K/mm3 (1.2-5.4) 04/22/21 05:15 [place] # (Auto) 0.2 K/mm3 (0.0-0.8) 04/22/21 05:15 Eos # (Auto) 0.3 K/mm3 (0.0-0.4) 04/22/21 05:15 Baso # (Auto) 0.0 K/mm3 (0.0-0.1) 04/22/21 05:15 Seg Neutrophils % 72.4 % (40.0-70.0) H 04/22/21 05:15 Seg Neutrophils # 5.2 K/mm3 (1.8-7.7) 04/22/21 05:15 PT 14.1 Sec. (12.2-14.9) 04/22/21 06:49 INR 1.10 (0.87-1.13) 04/22/21 06:49 APTT 31.6 Sec. (24.2-36.6) 04/22/21 06:49 Sodium 140 mmol/L (137-145) 04/22/21 05:15 Potassium 4.0 mmol/L (3.6-5.0) 04/22/21 05:15 Chloride 107.5 mmol/L (98-107) H 04/22/21 05:15 Carbon Dioxide 21 mmol/L (22-30) L 04/22/21 05:15 Anion Gap 16 mmol/L 04/22/21 05:15 BUN 9 mg/dL (9-20) 04/22/21 05:15 Creatinine 1.0 mg/dL (0.8-1.3) 04/22/21 05:15 Estimated GFR > 60 ml/min 04/22/21 05:15 BUN/Creatinine Ratio 9 % 04/22/21 05:15 Glucose 175 mg/dL (75-100) H 04/22/21 05:15 Calcium 8.2 mg/dL (8.4-10.2) L 04/22/21 05:15 Total Bilirubin 0.30 mg/dL (0.1-1.2) 04/22/21 05:15 AST 11 units/L (5-40) 04/22/21 05:15 ALT 8 units/L (7-56) 04/22/21 05:15 Alkaline Phosphatase 60 units/L (35-129) 04/22/21 05:15 Total Protein 6.3 g/dL (6.3-8.2) 04/22/21 05:15 Albumin 3.0 g/dL (3.9-5) L 04/22/21 05:15 Albumin/Globulin Ratio 0.9 % 04/22/21 05:15 Blood Type O POSITIVE 04/22/21 05:15 Antibody Screen Negative 04/22/21 05:15 Active Medications - Current Medications Current Medications: Generic Name Dose Route Start Last Admin Trade Name Freq PRN Reason Stop Dose Admin Sodium Chloride 1,000 mls @ 999 mls/hr 04/22/21 07:13 Nacl 0.9% 1000 Ml IV 04/22/21 08:13 ONCE ONE
--- NOTE | 2021-04-22 07:47 | History and Physical Report ---
History of Present Illness Date of examination: 04/22/21 Date of admission: 04/22/2021 Chief complaint: Rectal bleeding History of present illness: 75-year-old male patient with significant past medical history of nonischemic cardiomyopathy, permanent pacemaker, lung cancer on chemo and radiation, history of gout, peripheral neuropathy and peripheral neuropathy presented to the emergency room with history of rectal bleeding that started early this morning around 3:00, patient had recent episode of diverticulitis currently on antibiotics. Patient gives history of vasiliy red rectal bleeding, felt dizzy passed out at home. When EMS arrived patient was little hypotensive and dizzy however in ER patient's blood pressures are within reasonable level Patient had mild nausea and vomiting denies hematemesis. Also complains of some lower abdominal pain and discomfort. Past History Past Medical History: CAD, cancer (Lung cancer), heart failure, hypertension, other (Cardiomyopathy, gout, recent diverticulitis, peripheral neuropathy) Past Surgical History: cholecystectomy, Other (Permanent pacemaker) Social history: smoking, other (Recreational drug marijuana) Family history: no significant family history Medications and Allergies Allergies Allergy/AdvReac Type Severity Reaction Status Date / Time No Known Allergies Allergy Verified 07/30/18 14:14 Home Medications Medication Instructions Recorded Confirmed Last Taken Type Amoxicillin [Amoxicillin TAB] 875 mg PO BID 04/22/21 04/22/21 04/21/21 History Aspirin [Aspirin BABY CHEW TAB] 81 mg PO QDAY 04/22/21 04/22/21 04/21/21 History Dicyclomine [Bentyl] 20 mg PO BID 04/22/21 04/22/21 04/21/21 History Gabapentin [Neurontin] 600 mg PO Q8H 04/22/21 04/22/21 04/21/21 History Lisinopril [Zestril TAB] 2.5 mg PO DAILY 04/22/21 04/22/21 04/21/21 History Mirtazapine [Remeron] 15 mg PO HS 04/22/21 04/22/21 04/21/21 History Ondansetron HCl [Zofran] 4 mg PO DAILY PRN 04/22/21 04/22/21 04/21/21 History Pantoprazole [Protonix] 40 mg PO QDAY 04/22/21 04/22/21 04/21/21 History Pantoprazole [Protonix] 40 mg PO QDAY 04/22/21 04/22/21 04/21/21 History carvediloL [Coreg] 12.5 mg PO BID 04/22/21 04/22/21 04/21/21 History metroNIDAZOLE [Flagyl] 500 mg PO Q12HR 04/22/21 04/22/21 04/21/21 History Active Meds: Active Medications Sodium Chloride (Nacl 0.9% 1000 Ml) 1,000 mls @ 999 mls/hr IV ONCE ONE Stop: 04/22/21 08:13 Review of Systems Constitutional: fatigue, weakness, no weight loss, no weight gain Ears, nose, mouth and throat: no nasal congestion, no nasal discharge Cardiovascular: no chest pain, no orthopnea Respiratory: no cough, no shortness of breath Gastrointestinal: abdominal pain, nausea, vomiting, BRBPR, no hematemesis Genitourinary Male: no dysuria, no hematuria Musculoskeletal: no myalgias, no arthritis Integumentary: no rash, no lesions Neurological: weakness, other (Dizziness ) Psychiatric: no anxiety, no depression Endocrine: no cold intolerance, no heat intolerance Hematologic/Lymphatic: no easy bruising Allergic/Immunologic: no urticaria, no allergic rhinitis Exam - Constitutional Vitals: Temp Pulse Resp BP Pulse Ox 97.6 F 81 14 111/55 100 04/22/21 05:00 04/22/21 07:30 04/22/21 07:30 04/22/21 07:30 04/22/21 07:30 General appearance: Present: mild distress, cachectic, other (Emaciated) - EENT Eyes: Present: PERRL, EOM intact - Neck Neck: Present: supple, normal ROM - Respiratory Respiratory effort: normal Respiratory: bilateral: diminished, negative: rales, rhonchi, wheezing - Cardiovascular Rhythm: regular Heart Sounds: Present: S1 & S2 - Extremities Extremities: no ischemia, No edema - Abdominal General gastrointestinal: Present: soft, non-tender, non-distended, normal bowel sounds - Integumentary Integumentary: Present: clear, warm - Musculoskeletal Musculoskeletal: strength equal bilaterally, generalized weakness - Psychiatric Psychiatric: appropriate mood/affect, cooperative - Neurologic Neurologic: moves all extremities Results - Labs CBC & Chem 7: 04/22/21 05:15 04/22/21 05:15 Labs: Abnormal lab results 04/22/21 04/22/21 Range/Units 05:15 05:15 RBC 2.82 L (3.65-5.03) M/mm3 Hgb 9.1 L (11.8-15.2) gm/dl Hct 27.0 L (35.5-45.6) % MCV 96 H (84-94) fl RDW 16.4 H (13.2-15.2) % Seg Neutrophils % 72.4 H (40.0-70.0) % Chloride 107.5 H (98-107) mmol/L Carbon Dioxide 21 L (22-30) mmol/L Glucose 175 H (75-100) mg/dL Calcium 8.2 L (8.4-10.2) mg/dL Albumin 3.0 L (3.9-5) g/dL Assessment and Plan --Rectal bleeding; N.p.o. status, IV fluids, IV Protonix Monitor H&H, transfuse as needed GI consult for possible endoscopy --Acute blood loss anemia; Hemoglobin 9.1 Patient's baseline in 2018 was more than 13 Closely monitor H&H and transfuse as needed --History of lung cancer; on chemotherapy and radiation Supportive care, patient will follow with his oncologist upon discharge --Nonischemic cardiomyopathy; ejection fraction 20 to 25% Continue antifailure medications, Lasix, beta-blockers SOMMER inhibitors, input output monitoring, cardiology consult if needed --History of permanent pacemaker; Continue current medications and supportive care Cardiology if needed --Peripheral neuropathy; resume gabapentin --Hypertension; blood pressures in the lower range IV hydration, resume antihypertensives as needed --Severe protein calorie malnutrition; BMI 18.7, albumin 3.0 Nutrition supplements and supportive care Nutrition consult --DVT prophylaxis; No pharmacologic anticoagulation in view of GI bleeding, SCDs --Full CODE STATUS We will closely monitor the patient and adjust management as needed
[2021-04-22] MEDS ORDERED: NON-FORMULARY EACH (Gabapentin [Neurontin] 600 MG Tablet) PO SCH (08:00)
--- NOTE | 2021-04-22 08:56 | Cat Scan Report ---
CTA ABDOMEN AND PELVIS WITHOUT AND WITH IV CONTRAST INDICATION / CLINICAL INFORMATION: MAIN. Hematochezia. TECHNIQUE: Axial CT images were obtained through the abdomen and pelvis before and after after injection of 100 mL Omni 350 IV contrast. 3 plane MIP / 3D reconstructions were produced. [facility] CT [facility] are [facility] using CT dose reduction for ALARA by means of automated exposure control. Any percent stenosis measurements are based on criteria similar to NASCET. COMPARISON: CT abdomen and pelvis with contrast from 12/25/2017 would not load on [facility] at the time of this dictat ion. FINDINGS: Aorta: No significant abnormality. Renal arteries: Right accessory renal artery. No acute findings. Celiac artery: No significant abnormality. Superior Mesenteric Artery: No significant abnormality. Inferior mesenteric artery: No significant abnormality. Right Iliac Arteries: No significant abnormality.. Left Iliac Arteries: No significant abnormality.. Additional Findings: Concentric mural thickening and minimal pericolonic fat stranding and free fluid noted involving the ascending and transverse colon. Otherwise there is moderate/severe diverticulosis throughout the colo n. No evidence of active or serial extravasation into the bowel lumen. 1.2 cm noncalcified soft tissue density nodule left lung base (series 2 image 4). Emphysematous lung changes are noted in the bibasilar region with left basilar atelectasis. Cardiac leads terminating in appropriate position. Prior cholecystectomy with mild dilatation of the common bile duct and pancrea tic duct, likely secondary to postsurgical change. The liver, pancreas, spleen, adrenals, and bilater al kidneys also no significant abnormality. No mechanical bowel obstruction. Enlarged prostate measur es 5.7 cm. Skeletal Structures: Moderate multilevel degenerative changes are noted in the spine. No aggressive o sseous lesions. IMPRESSION: 1. Concentric mural thickening with pericolonic fat stranding and minimal disorganized free fluid inv olving the ascending and transverse colon. Infectious/inflammatory colitis is favored over diverticul itis given the extent of the findings. Diverticulosis also noted of the descending and sigmoid colon without significant inflammatory changes in these areas. 2. No acute vascular abnormality or evidence of intraluminal arterial extravasation. 3. Incidental note of accessory right renal artery. 4. Incidental pulmonary nodule left lung base measures 1.2 cm. Follow-up recommendations as below. INCIDENTAL PULMONARY NODULE RECOMMENDATION RECOMMENDATION: Solid Nodule size >8 mm -- Single - Low Risk or High Risk Patient: Consider CT at 3 months, PET/CT, or tissue sampling 1 Note These recommendations do not apply to lung cancer screening, patients with immunosuppression, o r patients with known primary cancer. Note Newly detected indeterminate nodule in persons 35 years of age or older. Persons under the age of 35 should not receive follow-up unless there is a known primary cancer. Note Perifissural Nodule is a fissure-attached, homogeneous, solid nodule that has smooth margins an d an oval, lentiform, or triangular shape. They represent about 20% of nodules detected in lung cance r screening, are invariably benign, and do not require follow-up. Nodules 10 mm or larger (or those w ith suspicious features) will continue to be managed based on the size criteria. - Low Risk Patient = minimal or absent history of smoking and of other known risk factors. - High Risk Patient = history of smoking or of other known risk factors. Nodule dimensions are average of long and short axes, rounded to the nearest millimeter. Based on 2017 Fleischner Society Guidelines found in Radiology 2017 284:228-243. https://doi.[email or web address] https://www.ncbi.nlm.nih.gov/pmc/articles/LCW9843248/ Signer Name: Adrian Bal MD Signed: 04/22/2021 8:51 AM Workstation Name: [id number]
[2021-04-22] MEDS ORDERED: NON-FORMULARY EACH (Lisinopril [Zestril Tab] 2.5 MG Tablet) PO SCH (10:00)
[2021-04-22] MEDS: GABAPENTIN 300 MG CAP PO SCH ×3 (10:24→22:00)
[2021-04-22] MEDS: carvediloL 12.5 MG TAB PO SCH ×2 (10:25→22:00)
[2021-04-22] MEDS: LISINOPRIL 5 MG TAB PO SCH (10:26)
[2021-04-22] MEDS: PANTOPRAZOLE 40 MG INJ IV SCH ×2 (10:27→22:00)
[2021-04-22] MEDS: DICYCLOMINE 20 MG TAB PO SCH ×2 (11:32→22:00)
[2021-04-22] MEDS: SODIUM CHLORIDE 0.9% 1000 ML 1,000 ML IV SCH ×2 (11:48→13:35)
--- NOTE | 2021-04-22 12:49 | Consultation ---
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 He had near syncope with this and fell to the ground. Because of this, he was brought to the emergency room. Patient was diagnosed with lung cancer approximately 5 weeks ago and received his first bout of chemotherapy on April 18 by an oncologist in [place]. He started radiation as well and has received 6 doses of radiation, the last being 2 days ago. Patient notes that he has a 2-week history of left upper quadrant pain with pain going from the right to the left side associated with nausea and vomiting. He had a CT scan and was diagnosed with diverticulitis and started on antibiotics which worked for 4 weeks. A week ago, his symptoms resumed. He has had a hard time with solid food and has been tolerating liquids. He has had nausea and vomiting and last vomited on Sunday. There was no blood in his emesis. Bowel movements usually occur 2 or 3 times an day and were normal as of yesterday though he did note some streaking of blood with brown stool yesterday. He has lost 20 pounds over the last month. Of note, he takes 2-4 Goody powders a day for headaches. He denies prior h istory of peptic ulcer disease or GERD. There is no prior history of GI bleed except possibly many years ago as a lower GI bleed that he never sought medical attention for. He last had a colonoscopy 4 years ago and states he had polyps. He denies fevers chills sweats or odynophagia. He has had no further bleeding since coming to the hospital. Medications reviewed. Past History Past Medical History: CAD, cancer (Lung cancer - dx'd 02/2021), heart failure (LVEF = 25% in 2017), hypertension, other (Cardiomyopathy, gout, recent diverticulitis, peripheral neuropathy) Past Surgical History: cholecystectomy, Other (Permanent pacemaker) Social history: smoking, other (Recreational drug marijuana). denies: alcohol abuse Family history: no significant family history Medications and Allergies Allergies Allergy/AdvReac Type Severity Reaction Status Date / Time No Known Allergies Allergy Verified 07/30/18 14:14 Home Medications Medication Instructions Recorded Confirmed Last Taken Type Amoxicillin [Amoxicillin TAB] 875 mg PO BID 04/22/21 04/22/21 04/21/21 History Aspirin [Aspirin BABY CHEW TAB] 81 mg PO QDAY 04/22/21 04/22/21 04/21/21 History Dicyclomine [Bentyl] 20 mg PO BID 04/22/21 04/22/21 04/21/21 History Gabapentin [Neurontin] 600 mg PO Q8H 04/22/21 04/22/21 04/21/21 History Lisinopril [Zestril TAB] 2.5 mg PO DAILY 04/22/21 04/22/21 04/21/21 History Mirtazapine [Remeron] 15 mg PO HS 04/22/21 04/22/21 04/21/21 History Ondansetron HCl [Zofran] 4 mg PO DAILY PRN 04/22/21 04/22/21 04/21/21 History Pantoprazole [Protonix] 40 mg PO QDAY 04/22/21 04/22/21 04/21/21 History Pantoprazole [Protonix] 40 mg PO QDAY 04/22/21 04/22/21 04/21/21 History carvediloL [Coreg] 12.5 mg PO BID 04/22/21 04/22/21 04/21/21 History metroNIDAZOLE [Flagyl] 500 mg PO Q12HR 04/22/21 04/22/21 04/21/21 History Active Meds: Active Medications Carvedilol (Carvedilol 12.5 Mg Tab) 12.5 mg PO BID [facility] Last Admin: 04/22/21 10:25 Dose: 12.5 mg Documented by: Dicyclomine HCl (Dicyclomine 20 Mg Tab) 20 mg PO BID [facility] Last Admin: 04/22/21 11:32 Dose: 20 mg Documented by: Gabapentin (Gabapentin 300 Mg Cap) 600 mg PO Q8HR [facility] Last Admin: 04/22/21 10:24 Dose: 600 mg Documented by: Sodium Chloride (Nacl 0.9% 1000 Ml) 1,000 mls @ 125 mls/hr IV DIRECT [facility] Last Admin: 04/22/21 11:48 Dose: 125 mls/hr Documented by: Lisinopril (Lisinopril 5 Mg Tab) 2.5 mg PO QDAY [facility] Last Admin: 04/22/21 10:26 Dose: 2.5 mg Documented by: Mirtazapine (Mirtazapine 15 Mg Tab) 15 mg PO [facility] Pantoprazole Sodium (Pantoprazole 40 Mg Inj) 40 mg IV BID [facility] Last Admin: 04/22/21 10:27 Dose: 40 mg Documented by: Review of Systems All systems: negative (as per HPI) Exam - Constitutional Vitals: Temp Pulse Resp BP Pulse Ox 97.8 F 93 H 116 H 115/77 100 04/22/21 11:34 04/22/21 11:34 04/22/21 11:34 04/22/21 11:34 04/22/21 11:34 General appearance: Present: no acute distress - EENT Eyes: Present: PERRL, EOM intact ENT: hearing intact - Respiratory Respiratory effort: normal Respiratory: bilateral: CTA - Cardiovascular Rhythm: regular Heart Sounds: Present: S1 & S2 - Extremities Extremities: No edema - Abdominal General gastrointestinal: Present: soft, non-tender Results - Labs CBC & Chem 7: 04/22/21 05:15 04/22/21 05:15 Labs: Abnormal lab results 04/22/21 04/22/21 Range/Units 05:15 05:15 RBC 2.82 L (3.65-5.03) M/mm3 Hgb 9.1 L (11.8-15.2) gm/dl Hct 27.0 L (35.5-45.6) % MCV 96 H (84-94) fl RDW 16.4 H (13.2-15.2) % Seg Neutrophils % 72.4 H (40.0-70.0) % Chloride 107.5 H (98-107) mmol/L Carbon Dioxide 21 L (22-30) mmol/L Glucose 175 H (75-100) mg/dL Calcium 8.2 L (8.4-10.2) mg/dL Albumin 3.0 L (3.9-5) g/dL - Imaging and Cardiology CT scan - abdomen: report reviewed (CTA done. Shows colitis involving ascending and transverse colon. No active bleed.) Assessment and Plan 1. Hematochezia -with near syncope. Patient had 2 episodes and has had no further episodes. He has been having upper abdominal pain and has known colitis. While this is likely a lower GI bleed, because of the syncope, an acute upper GI bleed cannot be excluded. This is especially so given that the patient takes Goody's powders and has had nausea vomiting with inability to take p.o. for the last 3 or 4 days. Again this could all be due to colitis and diverticulitis, but patient was not having diarrheal symptoms prior to the bleed even though he was being treated for diverticulitis or colitis. Patient may well have a reaction to the chemotherapeutic agent he received 3 days prior to onset of nausea and vomiting. He states that the abdominal pain started prior to the chemotherapy. -Monitor H&H and transfuse as needed -We will do urgent upper endoscopy to exclude possible brisk upper GI source that may have precipitated this -Empiric proton pump inhibitors -If upper endoscopy is negative, will consider colonoscopy if bleeding persists. Otherwise, would prefer to wait till colitis resolves prior to doing colonoscopy. 2. Lung cancer -on chemo Rx.
[2021-04-22] MEDS ORDERED: propofoL 200 MG/20 ML VIAL IV ONE (14:01)
--- NOTE | 2021-04-22 14:12 | Anesthesia Consultation ---
Anesthesia Consult and Med Hx Date of service: 04/22/21 - Airway Anesthetic Teeth Evaluation: Dentures ROM Head & Neck: Adequate Mental/Hyoid Distance: Adequate Mallampati Class: Class III Intubation Access Assessment: Possibly Difficult - Pre-Operative Health Status ASA Pre-Surgery Classification: ASA4 Proposed Anesthetic Plan: MAC - Pulmonary Hx Smoking: Yes (1 PPD) Hx Respiratory Symptoms: Yes (1-2pillow orthopnea; chronic) - Cardiovascular System Hx Hypertension: Yes Hx Coronary Artery Disease: Yes (EF 20-25%) Hx Heart Attack/AMI: Yes (4-5yrs ago) Hx Percutaneous Transluminal Coronary Angioplasty (PTCA): No Hx Cardia Arrhythmia: Yes Hx Pacemaker: Yes Hx Internal Defibrillator: Yes Hx Peripheral Vascular Disease: Yes - Central Nervous System CVA: Yes (multiple previous TIAs) - Endocrine Hx Renal Disease: No Hx Non-Insulin Dependent Diabetes: Yes - Other Systems Hx Cancer: Yes (lung ca on chemotherapy) Hx Obesity: No - Additional Comments Anesthesia Medical History Comments: No hx anesthetic complications.
--- NOTE | 2021-04-22 14:12 | Anesthesia Day of Surgery ---
Anesthesia Day of Surgery - Day of Surgery Patient Examined: Yes Patient H&P Reviewed: Yes Patient is NPO: Yes Beta Blockers: Yes
--- NOTE | 2021-04-22 14:39 | Post Operative Note ---
Date of procedure: 04/22/21 Pre-op diagnosis: GI bleed Post-op diagnosis: other (Normal EGD) Findings: Normal EGD, no evidence of bleeding Procedure: EGD Anesthesia: MAC Surgeon: CHANCE STOCK Estimated blood loss: none Pathology: none Condition: stable Disposition: floor (Monitor for ongoing bleed, and if so, check RBC scan.)
[2021-04-22] MEDS ORDERED: PHENYLEPHRINE/NS 1,000 MCG/10 ML SYRINGE (OR USE) IV ONE (14:44)
--- NOTE | 2021-04-22 16:47 | Post Anesthesia Evaluation ---
- Post Anesthesia Evaluation Patient Participated: Yes Airway Patent: Yes Stable Respiratory Function: Yes Nausea/Vomiting: No Temp > 96.8F: Yes Pain Manageable: Yes Adequeate Hydration: Yes Anesthesia Complications: No
--- NOTE | 2021-04-22 21:13 | Cat Scan Report ---
CT head/brain wo con INDICATION: post fall. TECHNIQUE: All CT scans at this location are performed using CT dose reduction for ALARA by means of automated e xposure control. COMPARISON: Brain MRI on 10/04/2017 FINDINGS: There is no evidence of hemorrhage, hydrocephalus, brain edema, or mass effect/mass lesion. There is stable moderate global brain atrophy and moderate chronic small vessel ischemic change in the cerebra l white matter. There are stable bilateral chronic lacunar infarcts in the thalami. There is also a c hronic infarct in the right occipital lobe. The included paranasal sinuses and mastoid air cells are clear. The orbits appear unremarkable. IMPRESSION: 1. No acute intracranial abnormality. Signer Name: Cresencio Martínez MD Signed: 04/22/2021 9:09 PM Workstation Name: [id number]
[2021-04-22] MEDS: MIRTAZAPINE 15 MG TAB PO SCH (22:00)
[2021-04-23] MEDS: GABAPENTIN 300 MG CAP PO SCH ×3 (05:59→21:31)
[2021-04-23] MEDS: PANTOPRAZOLE 40 MG INJ IV SCH (10:37)
[2021-04-23] MEDS: DICYCLOMINE 20 MG TAB PO SCH ×2 (10:37→21:31)
[2021-04-23] MEDS: carvediloL 12.5 MG TAB PO SCH ×2 (10:38→22:15)
[2021-04-23] MEDS: LISINOPRIL 5 MG TAB PO SCH (10:38)
--- NOTE | 2021-04-23 15:21 | Gastroenterology Progress Note ---
Assessment and Plan Hematochezia/GI bleed - EGD yesterday without source of bleeding. ct scan with colitis involving ascending colon/transverse colon and diverticulosis. no further bleeding overnight/today. suspect colitis related hematochezia vs diverticular bleed. etiology of colitis could be ischemic (abd pain prior to bleeding), infectious or medication induced/recent chemotherapy. okay to advance diet as tolerated. pt reports he has outpatient colonoscopy scheduled in a few weeks. hold off on colonoscopy at present time in setting of colitis and no signs of on going bleeding at present time. Subjective Date of service: 04/23/21 Principal diagnosis: hematochezia/gi bleed Interval history: pt feeling well regarding gi symptoms, denies abd pain, no further bleeding overnight/today. tolerated po intake Objective - Exam Narrative Exam: gen: nad abd: soft, nt, nd CV: rrr - Constitutional Vitals: Temp Pulse Resp BP Pulse Ox 99.3 F 102 H 18 101/63 98 04/23/21 11:48 04/23/21 11:48 04/23/21 11:48 04/23/21 11:48 04/23/21 11:48 - Labs CBC & Chem 7: 04/22/21 05:15 04/22/21 05:15 Labs: Laboratory Results - last 24 hr 04/22/21 15:02 POC Glucose 106 H
[2021-04-23] MEDS: SODIUM CHLORIDE 0.9% 1000 ML 1,000 ML IV SCH (16:37)
[2021-04-23] MEDS: PANTOPRAZOLE 40 MG TAB PO SCH (16:38)
--- NOTE | 2021-04-23 16:53 | Progress Note ---
Assessment and Plan Assessment and plan: --Rectal bleeding; Evaluated by GI s/p EGD Normal EGD, no evidence of bleeding Advance diet as tolerated IV fluids, IV Protonix, supportive care Monitor H&H, transfuse as needed --Acute blood loss anemia; Hemoglobin 9.1, stable Patient's baseline in 2019 was more than 13 Closely monitor H&H and transfuse as needed --History of lung cancer; on chemotherapy and radiation Supportive care, patient will follow with his oncologist upon discharge --Nonischemic cardiomyopathy; ejection fraction 20 to 25% Continue antifailure medications, Lasix, beta-blockers SOMMER inhibitors, input output monitoring, follow-up cardiology upon discharge --History of permanent pacemaker; Continue current medications and supportive care Follow cardiology upon discharge --Peripheral neuropathy; resume gabapentin --Hypertension; blood pressures in the lower range IV hydration, resume antihypertensives as needed --Severe protein calorie malnutrition; BMI 18.7, albumin 3.0, Nutrition consult Nutrition supplements and supportive care --DVT prophylaxis; No pharmacologic anticoagulation in view of GI bleeding, SCDs --Full CODE STATUS We will closely monitor the patient and adjust management as needed 04/23/2021; patient feels better, advance the diet as tolerated Closely monitor H&H, if stable patient may be discharged home tomorrow We will follow up with GI for an interval colonoscopy History Interval history: I seen and examined the patient at the bedside this afternoon Patient's chart and medications reviewed Patient feels slightly better, no new episodes of rectal bleeding But complains of generalized weakness and fatigue and some headache Vital signs noted Hospitalist Physical - Constitutional Vitals: Temp Pulse Resp BP Pulse Ox 99.3 F 102 H 18 101/63 98 04/23/21 11:48 04/23/21 11:48 04/23/21 11:48 04/23/21 11:48 04/23/21 11:48 General appearance: Present: mild distress, cachectic, other (Emaciated) - EENT Eyes: Present: PERRL, EOM intact - Neck Neck: Present: supple, normal ROM - Respiratory Respiratory effort: normal Respiratory: bilateral: diminished, negative: rales, rhonchi, wheezing - Cardiovascular Rhythm: regular Heart Sounds: Present: S1 & S2 - Extremities Extremities: no ischemia, No edema - Abdominal General gastrointestinal: soft, non-tender, non-distended, normal bowel sounds - Integumentary Integumentary: Present: clear, warm - Psychiatric Psychiatric: appropriate mood/affect, cooperative - Neurologic Neurologic: CNII-XII intact, moves all extremities Results - Labs CBC & Chem 7: 04/22/21 05:15 04/22/21 05:15 Labs: Laboratory Last Values WBC 7.2 K/mm3 (4.5-11.0) 04/22/21 05:15 RBC 2.82 M/mm3 (3.65-5.03) L 04/22/21 05:15 Hgb 9.1 gm/dl (11.8-15.2) L 04/22/21 05:15 Hct 27.0 % (35.5-45.6) L 04/22/21 05:15 MCV 96 fl (84-94) H 04/22/21 05:15 MCH 32 pg (28-32) 04/22/21 05:15 MCHC 34 % (32-34) 04/22/21 05:15 RDW 16.4 % (13.2-15.2) H 04/22/21 05:15 Plt Count 259 K/mm3 (140-440) 04/22/21 05:15 Lymph % (Auto) 20.7 % (13.4-35.0) 04/22/21 05:15 [place] % (Auto) 2.6 % (0.0-7.3) 04/22/21 05:15 Eos % (Auto) 3.7 % (0.0-4.3) 04/22/21 05:15 Baso % (Auto) 0.6 % (0.0-1.8) 04/22/21 05:15 Lymph # (Auto) 1.5 K/mm3 (1.2-5.4) 04/22/21 05:15 [place] # (Auto) 0.2 K/mm3 (0.0-0.8) 04/22/21 05:15 Eos # (Auto) 0.3 K/mm3 (0.0-0.4) 04/22/21 05:15 Baso # (Auto) 0.0 K/mm3 (0.0-0.1) 04/22/21 05:15 Seg Neutrophils % 72.4 % (40.0-70.0) H 04/22/21 05:15 Seg Neutrophils # 5.2 K/mm3 (1.8-7.7) 04/22/21 05:15 PT 14.1 Sec. (12.2-14.9) 04/22/21 06:49 INR 1.10 (0.87-1.13) 04/22/21 06:49 APTT 31.6 Sec. (24.2-36.6) 04/22/21 06:49 Sodium 140 mmol/L (137-145) 04/22/21 05:15 Potassium 4.0 mmol/L (3.6-5.0) 04/22/21 05:15 Chloride 107.5 mmol/L (98-107) H 04/22/21 05:15 Carbon Dioxide 21 mmol/L (22-30) L 04/22/21 05:15 Anion Gap 16 mmol/L 04/22/21 05:15 BUN 9 mg/dL (9-20) 04/22/21 05:15 Creatinine 1.0 mg/dL (0.8-1.3) 04/22/21 05:15 Estimated GFR > 60 ml/min 04/22/21 05:15 BUN/Creatinine Ratio 9 % 04/22/21 05:15 Glucose 175 mg/dL (75-100) H 04/22/21 05:15 POC Glucose 106 mg/dL (70-105) H 04/22/21 15:02 Calcium 8.2 mg/dL (8.4-10.2) L 04/22/21 05:15 Total Bilirubin 0.30 mg/dL (0.1-1.2) 04/22/21 05:15 AST 11 units/L (5-40) 04/22/21 05:15 ALT 8 units/L (7-56) 04/22/21 05:15 Alkaline Phosphatase 60 units/L (35-129) 04/22/21 05:15 Total Protein 6.3 g/dL (6.3-8.2) 04/22/21 05:15 Albumin 3.0 g/dL (3.9-5) L 04/22/21 05:15 Albumin/Globulin Ratio 0.9 % 04/22/21 05:15 Blood Type O POSITIVE 04/22/21 05:15 Antibody Screen Negative 04/22/21 05:15 Duvall/IV: Voiding Method Urinal Active Medications - Current Medications Current Medications: Generic Name Dose Route Start Last Admin Trade Name Monique PRN Reason Stop Dose Admin Carvedilol 12.5 mg 04/22/21 10:00 04/23/21 10:38 Carvedilol 12.5 Mg Tab PO Not Given BID [facility] Dicyclomine HCl 20 mg 04/22/21 10:00 04/23/21 10:37 Dicyclomine 20 Mg Tab PO 20 mg BID [facility] Administration Gabapentin 600 mg 04/22/21 09:00 04/23/21 13:21 Gabapentin 300 Mg Cap PO 600 mg Q8HR [facility] Administration Sodium Chloride 1,000 mls @ 125 mls/hr 04/22/21 08:00 04/23/21 16:37 Nacl 0.9% 1000 Ml IV 125 mls/hr DIRECT [facility] Administration Lisinopril 2.5 mg 04/22/21 10:00 04/23/21 10:38 Lisinopril 5 Mg Tab PO Not Given QDAY [facility] Mirtazapine 15 mg 04/22/21 22:00 04/22/21 22:00 Mirtazapine 15 Mg Tab PO 15 mg HS [facility] Administration Pantoprazole Sodium 40 mg 04/23/21 16:30 04/23/21 16:38 Pantoprazole 40 Mg Tab PO 40 mg BIDAC [facility] Administration
[2021-04-23 18:40] LABS: Hemoglobin 7.2 gm/dl (11.8-15.2)
[2021-04-23] MEDS: MIRTAZAPINE 15 MG TAB PO SCH (21:31)
[2021-04-24] MEDS: ONDANSETRON 4 MG/2 ML INJ IV PRN ×2 (00:30→06:03)
[2021-04-24] MEDS ORDERED: MORPHINE 2 MG/1 ML INJ IV ONE ×2 (02:59→08:29)
[2021-04-24] MEDS: GABAPENTIN 300 MG CAP PO SCH ×3 (05:11→22:04)
[2021-04-24] MEDS: PANTOPRAZOLE 40 MG TAB PO SCH ×2 (08:07→16:18)
[2021-04-24] MEDS: DICYCLOMINE 20 MG TAB PO SCH ×3 (08:47→22:04)
[2021-04-24] MEDS: SODIUM CHLORIDE 0.9% 1000 ML 1,000 ML IV SCH (08:48)
[2021-04-24] MEDS: LISINOPRIL 5 MG TAB PO SCH (10:30)
[2021-04-24] MEDS: carvediloL 12.5 MG TAB PO SCH ×2 (10:31→22:04)
--- NOTE | 2021-04-24 10:56 | Progress Note ---
Assessment and Plan Assessment and plan: Patient continues to have rectal bleeding, Large bout of bleeding yesterday[patient did not report to anyone] Hb today 5.3, type and screen, transfuse 2 units of PRBC Closely monitor, additional PRBC as needed --Rectal bleeding; Patient continues to have rectal bleeding Evaluated by GI s/p EGD Normal EGD, no evidence of bleeding Type and cross transfuse 2 units GI following, placed the patient n.p.o. Possible colonoscopy a.m. --Acute blood loss anemia; Hb today 5.3 Transfuse 2 units PRBC today Patient's baseline in 2019 was more than 13 --History of lung cancer; on chemotherapy and radiation Supportive care, patient will follow with his oncologist upon discharge --Nonischemic cardiomyopathy; ejection fraction 20 to 25% Continue antifailure medications, Lasix, beta-blockers SOMMER inhibitors, input output monitoring, follow-up cardiology upon discharge --History of permanent pacemaker; Continue current medications and supportive care Follow cardiology upon discharge --Peripheral neuropathy; resume gabapentin --Hypertension; blood pressures in the lower range IV hydration, resume antihypertensives as needed --Severe protein calorie malnutrition; BMI 18.7, albumin 3.0, Nutrition consult Nutrition supplements and supportive care --DVT prophylaxis; No pharmacologic anticoagulation in view of GI bleeding, SCDs --Full CODE STATUS We will closely monitor the patient and adjust management as needed Plan of care reviewed with the patient and his nurse Brief history and hospital course; 72-year-old male patient was admitted with rectal bleeding, evaluated by GI EGD negative for any abnormalities, patient's bleeding was stopped, low stable H&H Initially decided outpatient colonoscopy, however patient had severe rectal bleeding yesterday and this morning Hemoglobin 5.3, 2 units PRBC transfusion, n.p.o. status, possible colonoscopy tomorrow, GI following 04/23/2021; patient feels better, advance the diet as tolerated Closely monitor H&H, if stable patient may be discharged home tomorrow We will follow up with GI for an interval colonoscopy 04/24/2021; severe rectal bleeding, severe acute blood loss anemia Hemoglobin 5.3, type and cross transfuse 2 units PRBC GI following, possible colonoscopy tomorrow History Interval history: Patient reports that he continues to have rectal bleeding Had bout of bleeding yesterday did not report to anyone Patient is in mild distress cachectic Hemoglobin today is 5.3 Vital signs noted Hospitalist Physical - Constitutional Vitals: Temp Pulse Resp BP Pulse Ox 98.9 F 114 H 16 113/61 100 04/24/21 09:39 04/24/21 10:31 04/24/21 09:39 04/24/21 10:31 04/24/21 09:39 General appearance: Present: mild distress, cachectic, other (Emaciated) - EENT Eyes: Present: PERRL, EOM intact - Neck Neck: Present: supple, normal ROM - Respiratory Respiratory effort: normal Respiratory: bilateral: diminished, negative: rales, rhonchi, wheezing - Cardiovascular Rhythm: regular Heart Sounds: Present: S1 & S2 - Extremities Extremities: no ischemia, No edema - Abdominal General gastrointestinal: soft, non-tender, non-distended, normal bowel sounds - Integumentary Integumentary: Present: clear, warm, pale - Psychiatric Psychiatric: appropriate mood/affect, cooperative - Neurologic Neurologic: moves all extremities Results - Labs CBC & Chem 7: 04/24/21 11:41 04/22/21 05:15 Labs: Laboratory Last Values WBC 7.2 K/mm3 (4.5-11.0) 04/22/21 05:15 RBC 2.82 M/mm3 (3.65-5.03) L 04/22/21 05:15 Hgb 7.2 gm/dl (11.8-15.2) L 04/23/21 18:12 Hct 21.0 % (35.5-45.6) L D 04/23/21 18:12 MCV 96 fl (84-94) H 04/22/21 05:15 MCH 32 pg (28-32) 04/22/21 05:15 MCHC 34 % (32-34) 04/22/21 05:15 RDW 16.4 % (13.2-15.2) H 04/22/21 05:15 Plt Count 259 K/mm3 (140-440) 04/22/21 05:15 Lymph % (Auto) 20.7 % (13.4-35.0) 04/22/21 05:15 [place] % (Auto) 2.6 % (0.0-7.3) 04/22/21 05:15 Eos % (Auto) 3.7 % (0.0-4.3) 04/22/21 05:15 Baso % (Auto) 0.6 % (0.0-1.8) 04/22/21 05:15 Lymph # (Auto) 1.5 K/mm3 (1.2-5.4) 04/22/21 05:15 [place] # (Auto) 0.2 K/mm3 (0.0-0.8) 04/22/21 05:15 Eos # (Auto) 0.3 K/mm3 (0.0-0.4) 04/22/21 05:15 Baso # (Auto) 0.0 K/mm3 (0.0-0.1) 04/22/21 05:15 Seg Neutrophils % 72.4 % (40.0-70.0) H 04/22/21 05:15 Seg Neutrophils # 5.2 K/mm3 (1.8-7.7) 04/22/21 05:15 PT 14.1 Sec. (12.2-14.9) 04/22/21 06:49 INR 1.10 (0.87-1.13) 04/22/21 06:49 APTT 31.6 Sec. (24.2-36.6) 04/22/21 06:49 Sodium 140 mmol/L (137-145) 04/22/21 05:15 Potassium 4.0 mmol/L (3.6-5.0) 04/22/21 05:15 Chloride 107.5 mmol/L (98-107) H 04/22/21 05:15 Carbon Dioxide 21 mmol/L (22-30) L 04/22/21 05:15 Anion Gap 16 mmol/L 04/22/21 05:15 BUN 9 mg/dL (9-20) 04/22/21 05:15 Creatinine 1.0 mg/dL (0.8-1.3) 04/22/21 05:15 Estimated GFR > 60 ml/min 04/22/21 05:15 BUN/Creatinine Ratio 9 % 04/22/21 05:15 Glucose 175 mg/dL (75-100) H 04/22/21 05:15 POC Glucose 196 mg/dL (70-105) H 04/24/21 06:04 Calcium 8.2 mg/dL (8.4-10.2) L 04/22/21 05:15 Total Bilirubin 0.30 mg/dL (0.1-1.2) 04/22/21 05:15 AST 11 units/L (5-40) 04/22/21 05:15 ALT 8 units/L (7-56) 04/22/21 05:15 Alkaline Phosphatase 60 units/L (35-129) 04/22/21 05:15 Total Protein 6.3 g/dL (6.3-8.2) 04/22/21 05:15 Albumin 3.0 g/dL (3.9-5) L 04/22/21 05:15 Albumin/Globulin Ratio 0.9 % 04/22/21 05:15 Blood Type O POSITIVE 04/22/21 05:15 Antibody Screen Negative 04/22/21 05:15 Duvall/IV: Voiding Method Bedside Commode Active Medications - Current Medications Current Medications: Generic Name Dose Route Start Last Admin Trade Name Freq PRN Reason Stop Dose Admin Carvedilol 12.5 mg 04/22/21 10:00 04/24/21 10:31 Carvedilol 12.5 Mg Tab PO 12.5 mg BID [facility] Administration Dicyclomine HCl 20 mg 04/22/21 10:00 04/24/21 09:40 Dicyclomine 20 Mg Tab PO Not Given BID [facility] Gabapentin 600 mg 04/22/21 09:00 04/24/21 05:11 Gabapentin 300 Mg Cap PO 600 mg Q8HR [facility] Administration Sodium Chloride 1,000 mls @ 125 mls/hr 04/22/21 08:00 04/24/21 08:48 Nacl 0.9% 1000 Ml IV 125 mls/hr DIRECT [facility] Administration Lisinopril 2.5 mg 04/22/21 10:00 04/24/21 10:30 Lisinopril 5 Mg Tab PO Not Given QDAY [facility] Mirtazapine 15 mg 04/22/21 22:00 04/23/21 21:31 Mirtazapine 15 Mg Tab PO 15 mg HS [facility] Administration Ondansetron HCl 4 mg 04/24/21 00:10 04/24/21 06:03 Ondansetron 4 Mg/2 Ml Inj IV 4 mg Q6H PRN Administration Nausea And Vomiting Pantoprazole Sodium 40 mg 04/23/21 16:30 05/30/21 08:07 Pantoprazole 40 Mg Tab PO 40 mg BIDAC [facility] Administration
[2021-04-24 12:26] LABS: Hematocrit 15.5 % (35.5-45.6); Hemoglobin 5.3 gm/dl (11.8-15.2)
[2021-04-24] MEDS ORDERED: SODIUM CHLORIDE 0.9% 500 ML 500 ML IV SCH (12:32)
--- NOTE | 2021-04-24 14:23 | Gastroenterology Progress Note ---
Assessment and Plan 1. GI bleed/hematochezia - egd without source; persistent episodes yesterday with drop in H/H. 2 units ordered by primary, trend H/H and transfuse as needed to keep hgb > 7. has findings of colitis and diverticulosis on ct scan either of which could be source vs other etiology. will plan for colonoscopy tomorrow. prep orders placed, clears today and NPO at midnight. Subjective Date of service: 04/24/21 Principal diagnosis: hematochezia/gi bleed Interval history: pt noted to have significant drop in hgb from 2 days ago. he admits to having episodes of hematochezia yesterday (previously denied bleeding at time of rounds yesterday). 3 episodes in total, last around 6 pm per pt. no episodes today. still with abd pain (mid abdomen) Objective - Constitutional Vitals: Temp Pulse Resp BP Pulse Ox 98.9 F 114 H 16 113/61 100 04/24/21 09:39 04/24/21 10:31 04/24/21 09:39 04/24/21 10:31 04/24/21 09:39 General appearance: no acute distress - Cardiovascular Rhythm: regular Heart Sounds: Present: S1 & S2 - Gastrointestinal General gastrointestinal: Present: soft, tender (mid abd ttp), non-distended - Neurologic Neurological: alert and oriented x3 - Labs CBC & Chem 7: 04/24/21 11:41 04/22/21 05:15 Labs: Laboratory Results - last 24 hr 04/22/21 04/23/21 04/24/21 05:15 18:12 06:04 Hgb 7.2 L Hct 21.0 L D POC Glucose 196 H Blood Type Antibody Screen Crossmatch See Detail 04/24/21 04/24/21 11:41 12:54 Hgb 5.3 L* Hct 15.5 L* POC Glucose Blood Type O POSITIVE Antibody Screen Negative Crossmatch See Detail
[2021-04-24] MEDS ORDERED: POLYETHYLENE GLYCOL/ELECT SOLN 4000 ML PO SCH (15:15)
[2021-04-24] MEDS ORDERED: diphenhydrAMINE 25 MG CAP PO ONE (17:15)
[2021-04-24] MEDS: ACETAMINOPHEN 325 MG TAB PO PRN ×2 (17:22→23:33)
[2021-04-24] MEDS: MIRTAZAPINE 15 MG TAB PO SCH (22:04)
[2021-04-25] MEDS: SODIUM CHLORIDE 0.9% 1000 ML 1,000 ML IV SCH (03:45)
[2021-04-25 05:37] LABS: Basophils % (Auto) 0.3 % (0.0-1.8); Eosinophils # (Auto) 0.1 K/mm3 (0.0-0.4); Eosinophils % (Auto) 0.9 % (0.0-4.3); Hemoglobin 6.1 gm/dl (11.8-15.2); Lymphocytes # (Auto) 1.2 K/mm3 (1.2-5.4); Lymphocytes % (Auto) 16.8 % (13.4-35.0); Mean Corpuscular HGB Conc 35 % (32-34); Mean Corpuscular Volume 90 fl (84-94); Monocytes # (Auto) 0.4 K/mm3 (0.0-0.8); Monocytes % (Auto) 6.2 % (0.0-7.3); Platelet Count 142 K/mm3 (140-440); Red Blood Count 1.94 M/mm3 (3.65-5.03)
[2021-04-25 05:56] LABS: Hematocrit 17.5 % (35.5-45.6)
[2021-04-25] MEDS ORDERED: SODIUM CHLORIDE 0.9% 500 ML 500 ML IV ONE ×2 (05:58→06:37)
[2021-04-25] MEDS ORDERED: SODIUM CHLORIDE 0.9% 1000 ML 1,000 ML IV SCH (08:00)
[2021-04-25] MEDS: GABAPENTIN 300 MG CAP PO SCH ×3 (08:20→22:05)
[2021-04-25] MEDS: PANTOPRAZOLE 40 MG TAB PO SCH ×2 (08:20→17:10)
--- NOTE | 2021-04-25 08:43 | Anesthesia Consultation ---
Anesthesia Consult and Med Hx Date of service: 04/25/21 - Airway Anesthetic Teeth Evaluation: Dentures (Upper full plate) ROM Head & Neck: Adequate Mental/Hyoid Distance: Adequate Mallampati Class: Class I Intubation Access Assessment: Probably Good - Pulmonary Exam CTA: Yes - Pre-Operative Health Status ASA Pre-Surgery Classification: ASA3, ASA4 Proposed Anesthetic Plan: MAC - Pulmonary Hx Smoking: Yes (1 PPD) Hx Respiratory Symptoms: Yes (1-2pillow orthopnea; chronic) SOB: Yes COPD: Yes - Cardiovascular System Hx Hypertension: Yes (CHF) Hx Coronary Artery Disease: Yes (EF 20-25%) Hx Heart Attack/AMI: Yes (4-5yrs ago) Hx Percutaneous Transluminal Coronary Angioplasty (PTCA): No Hx Cardia Arrhythmia: Yes (Complete heart block) Hx Pacemaker: Yes Hx Internal Defibrillator: Yes Hx Peripheral Vascular Disease: Yes - Central Nervous System Hx Neuromuscular Disorder: Yes (Peripheral neuropathy) CVA: Yes (multiple previous TIAs) Hx Psychiatric Problems: Yes (Altered mental status, Encephalopathy) - Gastrointestinal Hx Ulcer: Yes (GI Bleed, Hx. Diverticulosis) - Endocrine Hx Renal Disease: No Hx Non-Insulin Dependent Diabetes: Yes - Hematic Hx Anemia: Yes - Other Systems Hx Alcohol Use: Yes (Quit 2018) Hx Cancer: Yes (lung ca on chemotherapy) Hx Obesity: No - Additional Comments Anesthesia Medical History Comments: No hx anesthetic complications.
--- NOTE | 2021-04-25 08:47 | Anesthesia Day of Surgery ---
Anesthesia Day of Surgery - Day of Surgery Patient Examined: Yes Patient H&P Reviewed: Yes Patient is NPO: Yes Beta Blockers: No Cardiac Clearance: No Pulmonary Clearance: No
[2021-04-25] MEDS ORDERED: LIDOCAINE MPF (2%) 20 MG/1 ML VIAL 5 ML ONE (08:51)
[2021-04-25] MEDS ORDERED: propofoL 200 MG/20 ML VIAL IV ONE (08:51)
[2021-04-25] MEDS ORDERED: PHENYLEPHRINE/NS 1,000 MCG/10 ML SYRINGE (OR USE) IV ONE (08:59)
--- NOTE | 2021-04-25 09:12 | Post Operative Note ---
Pre-op diagnosis: GI bleed/hematochezia Post-op diagnosis: other (núñez-diverticulosis, internal hemorrhoids, dark brown semi-liquid/solid stool in colon) Findings: Diverticulosis (large and throughout colon), internal hemorrhoids, dark brown semi liquid/solid stool. no blood seen during procedure Procedure: Colonoscopy Anesthesia: MAC Surgeon: NASIM BLOUNT Estimated blood loss: none Pathology: none Condition: stable Disposition: floor
[2021-04-25] MEDS: LISINOPRIL 5 MG TAB PO SCH (10:45)
[2021-04-25] MEDS: carvediloL 12.5 MG TAB PO SCH ×2 (10:45→22:05)
[2021-04-25] MEDS: DICYCLOMINE 20 MG TAB PO SCH ×2 (10:46→22:05)
--- NOTE | 2021-04-25 10:53 | Post Anesthesia Evaluation ---
- Post Anesthesia Evaluation Patient Participated: Yes Airway Patent: Yes Stable Respiratory Function: Yes Nausea/Vomiting: No Temp > 96.8F: Yes Pain Manageable: Yes Adequeate Hydration: Yes Anesthesia Complications: No Block Receding Appropriately: Not Applicable Patient on Ventilator: No
--- NOTE | 2021-04-25 11:04 | Progress Note ---
Assessment and Plan Assessment and plan: Patient underwent colonoscopy; diverticulosis Acute blood loss anemia; Status post 2 units PRBC transfusion, Hb 6.1 today Additional 1 unit PRBC transfusion today Patient continues to have rectal bleeding, Status post colonoscopy, supportive care Closely monitor, additional PRBC as needed --Rectal bleeding; Patient continues to have rectal bleeding, Evaluated by GI s/p EGD 04/25:colonoscopy;diverticulosis, internal hemorrhoids, dark brown semi- liquid/solid stool in colon) Normal EGD, no evidence of bleeding Type and cross transfuse 2 units GI following, placed the patient n.p.o. Possible colonoscopy a.m. --Acute blood loss anemia; Hb today 5.3 Transfuse 2 units PRBC today Patient's baseline in 2018 was more than 13 --History of lung cancer; on chemotherapy and radiation Supportive care, patient will follow with his oncologist upon discharge --Nonischemic cardiomyopathy; ejection fraction 20 to 25% Continue antifailure medications, Lasix, beta-blockers SOMMER inhibitors, input output monitoring, follow-up cardiology upon discharge --History of permanent pacemaker; Continue current medications and supportive care Follow cardiology upon discharge --Peripheral neuropathy; resume gabapentin --Hypertension; blood pressures in the lower range IV hydration, resume antihypertensives as needed --Severe protein calorie malnutrition; BMI 18.7, albumin 3.0, Nutrition consult Nutrition supplements and supportive care --DVT prophylaxis; No pharmacologic anticoagulation in view of GI bleeding, SCDs --Full CODE STATUS We will closely monitor the patient and adjust management as needed Plan of care reviewed with the patient and his nurse, possible discharge home tomorrow if stable brief history and hospital course; 72-year-old male patient was admitted with rectal bleeding, evaluated by GI EGD negative for any abnormalities, patient's bleeding was stopped, low stable H&H Initially decided outpatient colonoscopy, however patient had severe rectal bleeding yesterday and this morning Hemoglobin 5.3, 2 units PRBC transfusion, n.p.o. status, possible colonoscopy tomorrow, GI following 04/23/2021; patient feels better, advance the diet as tolerated Closely monitor H&H, if stable patient may be discharged home tomorrow We will follow up with GI for an interval colonoscopy 04/24/2021; severe rectal bleeding, severe acute blood loss anemia Hemoglobin 5.3, type and cross transfuse 2 units PRBC GI following, possible colonoscopy tomorrow 04/25/2021; patient underwent colonoscopy today, findings as mentioned above Patient continues to drop blood, third unit of blood given this afternoon check H&H Transfuse fourth PRBC, closely monitor the patient and adjust management as n eeded Possible discharge tomorrow if stable History Interval history: I have seen and examined the patient at the bedside this morning Patient's chart and medications reviewed Patient with severe rectal bleeding and acute blood loss anemia requiring multiple units of blood transfusion underwent colonoscopy today Colonoscopy ;diverticulosis, internal hemorrhoids, dark brown semi-liquid/solid stool in colon) Patient had a mild drop in H&H, transfuse 1 unit of PRBC \ Hospitalist Physical - Constitutional Vitals: Temp Pulse Resp BP Pulse Ox 99.7 F H 100 H 19 108/57 100 04/25/21 08:16 04/25/21 08:16 04/25/21 08:16 04/25/21 08:16 04/25/21 08:16 General appearance: Present: mild distress, cachectic, other (Emaciated) - EENT Eyes: Present: PERRL, EOM intact - Neck Neck: Present: supple, normal ROM - Respiratory Respiratory effort: normal Respiratory: bilateral: diminished, negative: rales, rhonchi, wheezing - Cardiovascular Rhythm: regular Heart Sounds: Present: S1 & S2 - Extremities Extremities: No edema, abnormal - Abdominal General gastrointestinal: soft, non-tender, non-distended, normal bowel sounds - Integumentary Integumentary: Present: clear, warm - Psychiatric Psychiatric: appropriate mood/affect, cooperative Results - Labs CBC & Chem 7: 04/25/21 05:07 04/22/21 05:15 Labs: Laboratory Last Values WBC 7.0 K/mm3 (4.5-11.0) 04/25/21 05:07 RBC 1.94 M/mm3 (3.65-5.03) L 04/25/21 05:07 Hgb 6.1 gm/dl (11.8-15.2) L 04/25/21 05:07 Hct 17.5 % (35.5-45.6) L* 04/25/21 05:07 MCV 90 fl (84-94) 04/25/21 05:07 MCH 31 pg (28-32) 04/25/21 05:07 MCHC 35 % (32-34) H 04/25/21 05:07 RDW 18.0 % (13.2-15.2) H 04/25/21 05:07 Plt Count 142 K/mm3 (140-440) 04/25/21 05:07 Lymph % (Auto) 16.8 % (13.4-35.0) 04/25/21 05:07 Wheeler % (Auto) 6.2 % (0.0-7.3) 04/25/21 05:07 Eos % (Auto) 0.9 % (0.0-4.3) 04/25/21 05:07 Baso % (Auto) 0.3 % (0.0-1.8) 04/25/21 05:07 Lymph # (Auto) 1.2 K/mm3 (1.2-5.4) 04/25/21 05:07 Wheeler # (Auto) 0.4 K/mm3 (0.0-0.8) 04/25/21 05:07 Eos # (Auto) 0.1 K/mm3 (0.0-0.4) 04/25/21 05:07 Baso # (Auto) 0.0 K/mm3 (0.0-0.1) 04/25/21 05:07 Seg Neutrophils % 75.8 % (40.0-70.0) H 04/25/21 05:07 Seg Neutrophils # 5.3 K/mm3 (1.8-7.7) 04/25/21 05:07 PT 14.1 Sec. (12.2-14.9) 04/22/21 06:49 INR 1.10 (0.87-1.13) 04/22/21 06:49 APTT 31.6 Sec. (24.2-36.6) 04/22/21 06:49 Sodium 140 mmol/L (137-145) 04/22/21 05:15 Potassium 4.0 mmol/L (3.6-5.0) 04/22/21 05:15 Chloride 107.5 mmol/L (98-107) H 04/22/21 05:15 Carbon Dioxide 21 mmol/L (22-30) L 04/22/21 05:15 Anion Gap 16 mmol/L 04/22/21 05:15 BUN 9 mg/dL (9-20) 05/28/21 05:15 Creatinine 1.0 mg/dL (0.8-1.3) 04/22/21 05:15 Estimated GFR > 60 ml/min 04/22/21 05:15 BUN/Creatinine Ratio 9 % 04/22/21 05:15 Glucose 175 mg/dL (75-100) H 04/22/21 05:15 POC Glucose 196 mg/dL (70-105) H 04/24/21 06:04 Calcium 8.2 mg/dL (8.4-10.2) L 04/22/21 05:15 Total Bilirubin 0.30 mg/dL (0.1-1.2) 04/22/21 05:15 AST 11 units/L (5-40) 04/22/21 05:15 ALT 8 units/L (7-56) 04/22/21 05:15 Alkaline Phosphatase 60 units/L (35-129) 04/22/21 05:15 Total Protein 6.3 g/dL (6.3-8.2) 04/22/21 05:15 Albumin 3.0 g/dL (3.9-5) L 04/22/21 05:15 Albumin/Globulin Ratio 0.9 % 04/22/21 05:15 Nasal Screen MRSA (PCR) Negative (Negative) 04/23/21 13:20 Blood Type O POSITIVE 04/24/21 12:54 Antibody Screen Negative 04/24/21 12:54 Crossmatch See Detail 04/24/21 12:54 [place]vall/IV: Voiding Method Toilet Active Medications - Current Medications Current Medications: Generic Name Dose Route Start Last Admin Trade Name Freq PRN Reason Stop Dose Admin Acetaminophen 650 mg 04/24/21 17:15 04/24/21 23:33 Acetaminophen 325 Mg Tab PO 650 mg Q4H PRN Administration Pain, Mild (1-3) Carvedilol 12.5 mg 04/22/21 10:00 04/25/21 10:45 Carvedilol 12.5 Mg Tab PO 12.5 mg BID COCO Administration Dicyclomine HCl 20 mg 04/22/21 10:00 04/25/21 10:46 Dicyclomine 20 Mg Tab PO 20 mg BID COCO Administration Gabapentin 600 mg 04/22/21 09:00 04/25/21 08:20 Gabapentin 300 Mg Cap PO Not Given Q8HR COCO Sodium Chloride 1,000 mls @ 50 mls/hr 04/25/21 08:00 Nacl 0.9% 1000 Ml IV DIRECT COCO Lisinopril 2.5 mg 04/22/21 10:00 04/25/21 10:45 Lisinopril 5 Mg Tab PO 2.5 mg QDAY COCO Administration Mirtazapine 15 mg 04/22/21 22:00 04/24/21 22:04 Mirtazapine 15 Mg Tab PO 15 mg HS COCO Administration Ondansetron HCl 4 mg 04/24/21 00:10 04/24/21 06:03 Ondansetron 4 Mg/2 Ml Inj IV 4 mg Q6H PRN Administration Nausea And Vomiting Pantoprazole Sodium 40 mg 04/23/21 16:30 04/25/21 08:20 Pantoprazole 40 Mg Tab PO Not Given BIDAC COCO Polyethylene Glycol/Electrolytes 4,000 ml 04/24/21 15:15 04/24/21 15:07 Polyethylene Glycol/Elect Soln 4000 Ml PO 04/25/21 15:14 4,000 ml ONCE COCO Administration
[2021-04-25] MEDS ORDERED: SODIUM CHLORIDE 0.9% 500 ML 500 ML IV SCH (14:00)
[2021-04-25] MEDS: NICOTINE 14 MG/24 HR PATCH TD SCH (17:10)
[2021-04-25] MEDS ORDERED: SODIUM CHLORIDE 0.9% 1000 ML 1,000 ML IV ONE (19:47)
[2021-04-25] MEDS ORDERED: diphenhydrAMINE 50 MG/ML VIAL IV ONE (19:47)
[2021-04-25] MEDS: ACETAMINOPHEN 325 MG TAB PO PRN (20:00)
[2021-04-26] MEDS: MIRTAZAPINE 15 MG TAB PO SCH (01:54)
[2021-04-26] MEDS: ACETAMINOPHEN 325 MG TAB PO PRN (01:54)
[2021-04-26] MEDS: GABAPENTIN 300 MG CAP PO SCH (05:19)
[2021-04-26 05:58] LABS: Basophils % (Auto) 0.5 % (0.0-1.8); Eosinophils # (Auto) 0.1 K/mm3 (0.0-0.4); Eosinophils % (Auto) 1.6 % (0.0-4.3); Hematocrit 24.9 % (35.5-45.6); Hemoglobin 8.4 gm/dl (11.8-15.2); Lymphocytes # (Auto) 1.3 K/mm3 (1.2-5.4); Lymphocytes % (Auto) 24.1 % (13.4-35.0); Mean Corpuscular HGB Conc 34 % (32-34); Mean Corpuscular Volume 89 fl (84-94); Monocytes # (Auto) 0.5 K/mm3 (0.0-0.8); Monocytes % (Auto) 8.7 % (0.0-7.3); Platelet Count 163 K/mm3 (140-440); Red Blood Count 2.78 M/mm3 (3.65-5.03); Red Cell Distribution Width 17.9 % (13.2-15.2)
[2021-04-26 06:14] LABS: INR 1.2 (0.87-1.13)
[2021-04-26] MEDS: PANTOPRAZOLE 40 MG TAB PO SCH (08:53)
[2021-04-26] MEDS ORDERED: MAGNESIUM SULFATE 1 GM in SODIUM CHLORIDE 0.9% 50 ML IV ONE (09:00)
--- NOTE | 2021-04-26 09:54 | Discharge Summary ---
Providers - Providers Date of Admission: 04/22/21 07:20 Date of discharge: 04/26/21 Attending physician: JIMY GARCIA 04/22/21 07:10 Consult to Physician [CONS] Urgent Comment: Consulting Provider: CHANCE STOCK Physician Instructions: Reason For Exam: GI bleed 04/25/21 23:12 Consult to Cardiology [CONS] Routine Consulting Provider: [facility], Reason For Exam: v tach Primary care physician: KEILA POPE MD Hospitalization Condition: Fair Disposition: DC-01 TO HOME OR SELFCARE Time spent for discharge: 35 min Core Measure Documentation - Palliative Care Palliative Care/ Comfort Measures: Not Applicable - Core Measures Any of the following diagnoses?: none Exam - Constitutional Vitals: Temp Pulse Resp BP Pulse Ox 98.6 F 93 H 18 109/62 98 04/26/21 05:14 04/26/21 05:14 04/26/21 05:14 04/26/21 05:14 04/26/21 05:14 General appearance: Present: no acute distress, well-nourished - EENT Eyes: Present: PERRL, EOM intact - Neck Neck: Present: supple, normal ROM - Respiratory Respiratory effort: normal Respiratory: bilateral: diminished, negative: rales, rhonchi, wheezing - Cardiovascular Rhythm: regular Heart Sounds: Present: S1 & S2 - Extremities Extremities: no ischemia, No edema - Abdominal General gastrointestinal: Present: soft, non-tender, non-distended, normal bowel sounds - Integumentary Integumentary: Present: clear, warm - Musculoskeletal Musculoskeletal: strength equal bilaterally - Psychiatric Psychiatric: appropriate mood/affect, cooperative - Neurologic Neurologic: CNII-XII intact, moves all extremities Plan Follow up with: KEILA POPE MD [Primary Care Provider] - 3-5 Days Forms: Accompanied Note
[2021-04-26] MEDS: POTASSIUM CHLORIDE 10 MEQ 10 MEQ/100 ML BAG IV SCH ×2 (09:56→12:16)
[2021-04-26] MEDS: carvediloL 12.5 MG TAB PO SCH (11:02)
[2021-04-26] MEDS: DICYCLOMINE 20 MG TAB PO SCH (11:02)
[2021-04-26] MEDS: LISINOPRIL 5 MG TAB PO SCH (11:02)
[2021-04-26] MEDS: NICOTINE 14 MG/24 HR PATCH TD SCH (11:03)
[2021-04-26] MEDS ORDERED: POTASSIUM CHLORIDE ER 20 MEQ TAB PO NR (11:30)
--- NOTE | 2021-04-26 11:48 | Gastroenterology Progress Note ---
Assessment and Plan Hematochezia/gi bleed - egd negative, colonoscopy with núñez-diverticulosis, no blood/active bleeding seen during procedure. no signs of obvious colitis to correlate with ct findings. h/h stable and no further bleeding overnight. suspect diverticular bleed. pt to f/u with primary gi as scheduled after discharge. will sign off, please call as needed. Subjective Date of service: 04/26/21 Principal diagnosis: hematochezia/gi bleed Interval history: no hematochezia overnight/since colonoscopy. states he feels well, abd pain improved Objective - Exam Narrative Exam: Gen: nad abd: soft, nt, nd - Constitutional Vitals: Temp Pulse Resp BP Pulse Ox 98.6 F 93 H 18 109/62 98 04/26/21 05:14 04/26/21 05:14 04/26/21 05:14 04/26/21 05:14 04/26/21 05:14 - Labs CBC & Chem 7: 04/26/21 05:17 04/26/21 05:17 Labs: Laboratory Results - last 24 hr 04/24/21 04/26/21 04/26/21 12:54 05:17 05:17 WBC RBC Hgb Hct MCV MCH MCHC RDW Plt Count Lymph % (Auto) [place] % (Auto) Eos % (Auto) Baso % (Auto) Lymph # (Auto) [place] # (Auto) Eos # (Auto) Baso # (Auto) Seg Neutrophils % Seg Neutrophils # PT 15.2 H INR 1.20 H Potassium Magnesium 1.50 L Blood Type O POSITIVE Antibody Screen Negative Crossmatch See Detail 04/26/21 04/26/21 05:17 05:17 WBC 5.2 RBC 2.78 L Hgb 8.4 L Hct 24.9 L D MCV 89 MCH 30 MCHC 34 RDW 17.9 H Plt Count 163 Lymph % (Auto) 24.1 [place] % (Auto) 8.7 H Eos % (Auto) 1.6 Baso % (Auto) 0.5 Lymph # (Auto) 1.3 [place] # (Auto) 0.5 Eos # (Auto) 0.1 Baso # (Auto) 0.0 Seg Neutrophils % 65.1 Seg Neutrophils # 3.4 PT INR Potassium 3.0 L D Magnesium Blood Type Antibody Screen Crossmatch
[2021-04-26 12:10] VITALS: BP 100/51
--- NOTE | 2021-04-26 12:57 | Discharge Summary ---
Providers - Providers Date of Admission: 04/22/21 07:20 Date of discharge: 04/26/21 Attending physician: JIMY GARCIA 04/22/21 07:10 Consult to Physician [CONS] Urgent Comment: Consulting Provider: CHANCE STOCK Physician Instructions: Reason For Exam: GI bleed 04/25/21 23:12 Consult to Cardiology [CONS] Routine Consulting Provider[facility] Reason For Exam: v tach Primary care physician: KEILA POPE MD Hospitalization Reason for admission: Rectal bleeding Condition: Fair Pertinent studies: CT head without contrast CTA abdomen and pelvis Procedures: EGD, colonoscopy Hospital course: brief history and hospital course; 72-year-old male patient was admitted with rectal bleeding, evaluated by GI EGD negative for any abnormalities, patient's bleeding was stopped, low stable H&H Initially decided outpatient colonoscopy, however patient had severe rectal bleeding yesterday and this morning Hemoglobin 5.3, 2 units PRBC transfusion, n.p.o. status, possible colonoscopy tomorrow, GI following Discharge diagnosis; Acute blood loss anemia; Status post 2 units PRBC transfusion, Hb 6.1 today Additional 1 unit PRBC transfusion today Patient continues to have rectal bleeding, Status post colonoscopy, supportive care Closely monitor, additional PRBC as needed --Rectal bleeding; Patient continues to have rectal bleeding, Evaluated by GI s/p EGD 04/25:colonoscopy;diverticulosis, internal hemorrhoids, dark brown semi- liquid/solid stool in colon) Normal EGD, no evidence of bleeding Type and cross transfuse 2 units GI following, placed the patient n.p.o. Possible colonoscopy a.m. --Acute blood loss anemia; Hb today 5.3 Transfuse 2 units PRBC today Patient's baseline in 2019 was more than 13 --History of lung cancer; on chemotherapy and radiation Supportive care, patient will follow with his oncologist upon discharge --Nonischemic cardiomyopathy; ejection fraction 20 to 25% Continue antifailure medications, Lasix, beta-blockers SOMMER inhibitors, input output monitoring, follow-up cardiology upon discharge --History of permanent pacemaker; Continue current medications and supportive care Follow cardiology upon discharge --Peripheral neuropathy; resume gabapentin --Hypertension; blood pressures in the lower range IV hydration, resume antihypertensives as needed --Severe protein calorie malnutrition; BMI 18.7, albumin 3.0, Nutrition consult Nutrition supplements and supportive care --DVT prophylaxis; No pharmacologic anticoagulation in view of GI bleeding, SCDs --Full CODE STATUS We will closely monitor the patient and adjust management as needed Plan of care reviewed with the patient and his nurse, possible discharge home tomorrow if stable Disposition: - TO HOME OR SELFCARE Final Discharge Diagnosis (Prints w/discharge instructions): Rectal bleeding. Diverticulosis. Acute blood loss anemia. History of lung cancer. Nonischemic cardiomyopathy. History of permanent pacemaker. Peripheral neuropathy. Hypertension. Severe protein calorie malnutrition Time spent for discharge: 35 min Core Measure Documentation - Palliative Care Palliative Care/ Comfort Measures: Not Applicable - Core Measures Any of the following diagnoses?: none Exam - Constitutional Vitals: Temp Pulse Resp BP Pulse Ox 98.3 F 91 H 18 100/51 100 04/26/21 11:22 04/26/21 11:22 04/26/21 11:22 04/26/21 11:22 04/26/21 11:22 General appearance: Present: no acute distress, well-nourished - EENT Eyes: Present: PERRL, EOM intact - Neck Neck: Present: supple, normal ROM - Respiratory Respiratory effort: normal Respiratory: bilateral: diminished, negative: rales, rhonchi, wheezing - Cardiovascular Rhythm: regular Heart Sounds: Present: S1 & S2 - Extremities Extremities: no ischemia, No edema - Abdominal General gastrointestinal: Present: soft, non-tender, non-distended, normal bowel sounds - Integumentary Integumentary: Present: clear, warm - Musculoskeletal Musculoskeletal: strength equal bilaterally, generalized weakness - Psychiatric Psychiatric: appropriate mood/affect, cooperative - Neurologic Neurologic: CNII-XII intact, moves all extremities Plan Activity: advance as tolerated Diet: advance as tolerated, other (Soft diet) Special Instructions: smoking cessation Additional Instructions: Soft diet advance as tolerated. Advised to follow PMD in 3 to 5 days at which time check potassium/ magnesium levels. 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 If you have worsening symptoms contact MD or go to emergency room as needed Follow up with: KEILA POPE MD [Primary Care Provider] - 3-5 Days NASIM BLOUNT MD [Staff Physician] - 7 Days AMBAR ADAMS MD [Staff Physician] - 7 Days Forms: Accompanied Note Prescriptions: Nicotine [Habitrol] 14 mg TD QDAY #14 patch Pantoprazole [Protonix TAB] 40 mg PO BIDAC #60 tablet
--- NOTE | 2021-04-26 13:49 | Post Anesthesia Evaluation ---
- Post Anesthesia Evaluation Patient Participated: Yes Airway Patent: Yes Stable Respiratory Function: Yes Nausea/Vomiting: No Temp > 96.8F: Yes Pain Manageable: Yes Adequeate Hydration: Yes Anesthesia Complications: No Block Receding Appropriately: Not Applicable Patient on Ventilator: No Other Comments: patient is being discharged home in a good condition
--- NOTE | 2021-04-26 15:03 | Consultation ---
History of Present Illness Consult date: 04/26/21 Requesting physician: MIMI PANDEY Consult reason: arrhythmia History of present illness: 75-year-old male patient with significant past medical history of nonischemic cardiomyopathy, permanent pacemaker, lung cancer on chemo and radiation, history of gout, peripheral neuropathy and peripheral neuropathy. Patient is previously unknown to our practice, he is regularly followed by [facility]. Presented to the emergency room with history of rectal bleeding that started early this morning around 3:00, patient had recent episode of diverticulitis currently on antibiotics. Patient diagnosed with GI bleed with acute anemia from blood loss, has received multiple units of PRBCs. Cardiology was consulted for 15 beat episode of V. tach overnight on telemetry. Patient is asymptomatic and currently in 100% paced rhythm. Discharge is planned for this afternoon so patient can make scheduled radiation treatment. LHC reviewed (2018): Normal coronary arteries. Echo reviewed (2016): EF 20 to 25% Past History Past Medical History: CAD, cancer (Lung cancer), heart failure, hypertension, other (Cardiomyopathy, gout, recent diverticulitis, peripheral neuropathy) Past Surgical History: cholecystectomy, Other (Permanent pacemaker) Social history: smoking, other (Recreational drug marijuana) Family history: no significant family history Medications and Allergies Allergies Allergy/AdvReac Type Severity Reaction Status Date / Time No Known Allergies Allergy Verified 07/30/18 14:14 Home Medications Medication Instructions Recorded Confirmed Last Taken Type Amoxicillin [Amoxicillin TAB] 875 mg PO BID 04/22/21 04/22/21 04/21/21 History Aspirin [Aspirin BABY CHEW TAB] 81 mg PO QDAY 04/22/21 04/22/21 04/21/21 History Dicyclomine [Bentyl] 20 mg PO BID 04/22/21 04/22/21 04/21/21 History Gabapentin [Neurontin] 600 mg PO Q8H 04/22/21 04/22/21 04/21/21 History Lisinopril [Zestril TAB] 2.5 mg PO DAILY 04/22/21 04/22/21 04/21/21 History Mirtazapine [Remeron] 15 mg PO HS 04/22/21 04/22/21 04/21/21 History Ondansetron HCl [Zofran] 4 mg PO DAILY PRN 04/22/21 04/22/21 04/21/21 History Pantoprazole [Protonix TAB] 40 mg PO QDAY 04/22/21 04/22/21 04/21/21 History carvediloL [Coreg] 12.5 mg PO BID 04/22/21 04/22/21 04/21/21 History metroNIDAZOLE [Flagyl TAB] 500 mg PO Q12HR 04/22/21 04/22/21 04/21/21 History Nicotine [Habitrol] 14 mg TD QDAY #14 patch 04/26/21 Unknown Rx Pantoprazole [Protonix TAB] 40 mg PO BIDAC #60 tablet 04/26/21 Unknown Rx Review of Systems Constitutional: no weight loss, no weight gain, no fever, no chills, no sweats Ears, nose, mouth and throat: no ear pain, no ear discharge, no decreased hearing, no nose pain, no nasal congestion, no nasal discharge, no sinus pressure Cardiovascular: no chest pain, no orthopnea, no palpitations, no rapid/irregular heart beat, no edema, no syncope, no lightheadedness, no shortness of breath Respiratory: cough, dyspnea on exertion Gastrointestinal: diarrhea, no abdominal pain, no nausea, no vomiting Genitourinary Male: no hematuria, no flank pain Musculoskeletal: no neck stiffness, no neck pain, no shooting arm pain, no arm numbness/tingling, no low back pain, no shooting leg pain, no leg numbness/tingling Integumentary: no rash, no pruritis, no redness, no sores, no wounds, no jaund ice Neurological: no head injury, no paralysis, no weakness, no parathesias, no numbness, no tingling, no seizures, no syncope Psychiatric: no anxiety Endocrine: no cold intolerance, no heat intolerance Hematologic/Lymphatic: no easy bruising, no easy bleeding Allergic/Immunologic: no urticaria Physical Examination Last Vital Signs Temp 98.3 F 04/26/21 11:22 Pulse 91 H 04/26/21 11:22 Resp 18 04/26/21 11:22 BP 100/51 04/26/21 11:22 Pulse Ox 100 04/26/21 11:22 Results 04/26/21 05:17 04/26/21 05:17 Coagulation 04/26/21 Range/Units 05:17 PT 15.2 H (12.2-14.9) Sec. INR 1.20 H (0.87-1.13) CBC 04/26/21 Range/Units 05:17 WBC 5.2 (4.5-11.0) K/mm3 RBC 2.78 L (3.65-5.03) M/mm3 Hgb 8.4 L (11.8-15.2) gm/dl Hct 24.9 L D (35.5-45.6) % Plt Count 163 (140-440) K/mm3 Lymph # (Auto) 1.3 (1.2-5.4) K/mm3 [place] # (Auto) 0.5 (0.0-0.8) K/mm3 Eos # (Auto) 0.1 (0.0-0.4) K/mm3 Baso # (Auto) 0.0 (0.0-0.1) K/mm3 Comprehensive Metabolic Panel 04/26/21 Range/Units 05:17 Potassium 3.0 L D (3.6-5.0) mmol/L - Imaging and Cardiology Echo: report reviewed Cardiac cath: report reviewed EKG: report reviewed, image reviewed EKG interpretations - Telemetry EKG Rhythm: Paced Pacemaker: ventricular pacing w/capt Assessment and Plan Telemetry reviewed: 100% ventricular paced rhythm 84. 15 beat episode of V. tach noted overnight. #Pacemaker in situ * Review of telemetry shows pacemaker functioning with positive capture. * Patient reports regular follow-up with [facility]. #Nonischemic cardiomyopathy * Echocardiogram from 2017 reviewed showing EF of 20 to 25%. Patient reports having more recent echocardiogram with [facility] is regular cardiology group #Electrolyte derangement * Review of labs reveal potassium of 3.0 and magnesium of 1.5. Electrolytes were repleted this a.m. #Acute anemia in setting of GI bleed * Patient has received multiple units of PRBCs. GI is following and patient is s/p colonoscopy. #DVT prophylaxis * No AC in setting of GI bleed Patient is currently in stable cardiac status. Episode of ventricular arrhythmia most likely due to electrolyte derangement. Discussion with primary team states intent to discharge patient today so he may attend regularly scheduled radiation therapy for ongoing lung CA. Discussed patient disposition with Dr. Sheppard, associate professor of music with [facility] covering [facility]. Patient may discharge from cardiology standpoint. Patient should follow-up with [facility] within 1 to 2 weeks of discharge. This patient was seen in conjunction with Dr Moose Spain who agrees with this assessment and plan of care - Patient Problems (1) Hypomagnesemia Status: Acute (2) Hypokalemia Status: Acute (3) Cardiac pacemaker in situ Status: Chronic (4) Anemia due to acute blood loss Status: Acute (5) Cardiomyopathy Status: Chronic (6) DVT prophylaxis Status: Acute (7) GI bleed Status: Acute
--- NOTE | 2021-04-27 10:14 | Electrocardiograph Report ---
[facility] Test Date: 2021-04-26 Test Time: 10:00:24 Pat Name: SRINIVASAN DIAZ Department: Room: A385 1 Gender: M Motorcycle Service Technician: TANIA : 1945 Requested By: EDINSON PHILIP Order Number: [id number] Reading MD: Musa Spain Measurements Intervals [place] Rate: 93 P: -50 ND: 203 QRS: 109 QRSD: 142 T: -72 QT: 399 QTc: 496 Interpretive Statements A-V dual-paced complexes w/ some inhibition Biventricular paced rhythm No previous ECG available for comparison Electronically Signed On 04-27-2021 10:14:22 EDT by Musa Spain
--- NOTE | 2021-06-13 10:28 | Operative Report ---
Operative Report Operative Report: Colonoscopy Procedure Note Date of procedure: 04/25/2021 Endoscopist: Alexx Hammond Pre-op diagnosis/indication: Hematochezia, GI bleeding Post-op diagnosis: Diverticulosis MEDICATIONS: MAC COMPLICATIONS: No immediate complications ESTIMATED BLOOD LOSS: None DESCRIPTION OF PROCEDURE: After consent was obtained, the patient was placed in the left lateral decubitis position. The olympus colonoscope was inserted into the rectum and advanced to the cecum without difficulty. The patient tolerated the procedure well. The quality of the bowel preparation was inadequate to rule out small or flat lesions but likely adequate for diagnostic purposes. FINDINGS: Multiple small and large-mouthed diverticula were found in the entire colon. Internal hemorrhoids were found during retro-flexion. Semi-liquid brown stool throughout the colon, and areas of solid brown stool in the left colon which limited detailed visualization. However, no blood or other obvious source of bleeding aside from diverticula seen. IMPRESSION: 1. Diverticulosis in the entire examined colon. 2. Internal hemorrhoids 3. Brown liquid and semi-solid stool in the colon. no high risk bleeding lesions, blood or other obvious colonic source of Gi bleed seen aside from diverticula in the colon. RECOMMENDATIONS: -monitor H/H, transfuse as needed to keep hgb > 7, if pt rebleeds, recommend CTA. will start liquid diet, monitor today and will follow-up tomorrow.
== END 2021-04-26 13:45 | disposition home or self-care (01) | DRG 377 ==
LOC: ED 05:00 → 3A 07:20
PROVIDERS: ADMIT Internal Medicine; ATTEND Internal Medicine
PROC: 0DJ08ZZ Inspection of Upper Intestinal Tract, Via Natural or Artificial Opening Endoscopic (ICD-10-PCS; principal; 2021-04-22)
PROC: 30233N1 Transfusion of Nonautologous Red Blood Cells into Peripheral Vein, Percutaneous Approach (ICD-10-PCS; 2021-04-24)
PROC: 0DJD8ZZ Inspection of Lower Intestinal Tract, Via Natural or Artificial Opening Endoscopic (ICD-10-PCS; 2021-04-25)
DX: K62.5 Hemorrhage of anus and rectum (principal); E43 Unspecified severe protein-calorie malnutrition; D62 Acute posthemorrhagic anemia; Z68.1 Body mass index [BMI] 19.9 or less, adult; I42.8 Other cardiomyopathies; C34.90 Malignant neoplasm of unspecified part of unspecified bronchus or lung; I95.1 Orthostatic hypotension; I11.0 Hypertensive heart disease with heart failure; E83.42 Hypomagnesemia; E87.6 Hypokalemia; I50.9 Heart failure, unspecified; M17.0 Bilateral primary osteoarthritis of knee; M10.9 Gout, unspecified; K57.90 Diverticulosis of intestine, part unspecified, without perforation or abscess without bleeding; K64.8 Other hemorrhoids; I25.10 Atherosclerotic heart disease of native coronary artery without angina pectoris; E11.42 Type 2 diabetes mellitus with diabetic polyneuropathy; F17.210 Nicotine dependence, cigarettes, uncomplicated; F12.90 Cannabis use, unspecified, uncomplicated; Z79.82 Long term (current) use of aspirin; Z79.84 Long term (current) use of oral hypoglycemic drugs; Z90.49 Acquired absence of other specified parts of digestive tract; I25.2 Old myocardial infarction; Z95.0 Presence of cardiac pacemaker; Z95.9 Presence of cardiac and vascular implant and graft, unspecified; Z92.21 Personal history of antineoplastic chemotherapy
CPT/HCPCS: 36415; 70450; 74174; 80053; 82271; 82962; 83735; 84132; 85014; 85018; 85025; 85610; 85730; 86850; 86900; 86901; 86920; 87641; 93005; 99406; G0378; C9113; J1200; J2270; J2370; J2405; J2704; J3475; J3480; J7030; J7040; P9016; Q9967

== ENCOUNTER 2021-09-09 05:57 | Emergency (ER) | payer MEDICARE ==
--- NOTE | 2021-09-09 06:17 | Emergency Department Report ---
HPI - General Chief Complaint: Cardiac Arrest/CPR Time Seen by Provider: 09/09/21 06:12 - HPI HPI: 76-year-old -[place] male presents to the emergency department via EMS from home in cardiac arrest. Patient apparently woke up this morning and was seen by family awake and alert, but then began having coughing fits with hemoptysis and then went unresponsive. This occurred around 5:15 AM. EMS was called and found the patient to be pulseless and in PEA. They initiated ACLS protocol with bag valve ventilation, and medications through an intraosseous line. They attempted to intubate but found the patient to have a large amount of blood in the oropharynx and difficult anatomy and were unable to intubate prearrival. He arrives with a nasal trumpet in place still receiving bag valve ventilation. He received 2 rounds of epinephrine and 1 of sodium bicarbonate. He had an Accu-Chek in route at about 90. The patient was brought into room #22 where we continued ACLS protocol. Records show that the patient has a history of COPD, CAD with previous [place], CHF, previous heart block and pacemaker in situ, hypertension, and EMS says that he has a history of lung cancer. ED Past Medical Hx - Past Medical History Hx Hypertension: Yes (CHF) Hx Heart Attack/AMI: Yes (4-5yrs ago) Hx Diabetes: Yes Hx Renal Disease: No Hx Arthritis: Yes (knees) Hx COPD: Yes Additional medical history: Diverticulitis - Surgical History Hx Pacemaker: Yes Hx Internal Defibrillator: Yes Hx Cholecystectomy: Yes (2005) - Social History Smoking Status: Current Every Day Smoker - Medications Home Medications: Home Medications Medication Instructions Recorded Confirmed Last Taken Type Amoxicillin [Amoxicillin TAB] 875 mg PO BID 04/22/21 04/22/21 04/21/21 History Aspirin [Aspirin BABY CHEW TAB] 81 mg PO QDAY 04/22/21 04/22/21 04/21/21 History Dicyclomine [Bentyl] 20 mg PO BID 04/22/21 04/22/21 04/21/21 History Gabapentin [Neurontin] 600 mg PO Q8H 04/22/21 04/22/21 04/21/21 History Lisinopril [Zestril TAB] 2.5 mg PO DAILY 04/22/21 04/22/21 04/21/21 History Mirtazapine [Remeron] 15 mg PO HS 04/22/21 04/22/21 04/21/21 History Ondansetron HCl [Zofran] 4 mg PO DAILY PRN 04/22/21 04/22/21 04/21/21 History Pantoprazole [Protonix TAB] 40 mg PO QDAY 04/22/21 04/22/21 04/21/21 History carvediloL [Coreg] 12.5 mg PO BID 04/22/21 04/22/21 04/21/21 History metroNIDAZOLE [Flagyl TAB] 500 mg PO Q12HR 04/22/21 04/22/21 04/21/21 History Nicotine [Habitrol] 14 mg TD QDAY #14 patch 04/26/21 Unknown Rx Pantoprazole [Protonix TAB] 40 mg PO BIDAC #60 tablet 04/26/21 Unknown Rx ED Review of Systems ROS: Stated complaint: CARDIAC ARREST Other details as noted in HPI Comment: Unobtainable due to pts medical conditions Physical Exam - Physical Exam Physical Exam: GENERAL: Patient is ill-appearing and unresponsive. HENT: Normocephalic. Atraumatic. EYES: Pupils are fixed and dilated. NECK: Supple. Trachea appears midline. CHEST/LUNGS: There are no spontaneous respirations. HEART/CARDIOVASCULAR: There are no spontaneous heart sounds. ABDOMEN: Abdomen is soft. There is no abdominal distention. SKIN: Skin is cool but dry. NEURO: Unresponsive. Does not withdraw to painful stimuli. Does not follow any commands. MUSCULOSKELETAL: There is no obvious deformity. There is no evidence of acute injury. No palpable femoral or radial pulses. - Intubation Time Out Performed: Yes Sedative: none Laryngoscope: other (Glidescope) Size: 4 ET Tube Size: 7.5 Tube Secured Depth (cm): 24 Tube Secured Location: lips Tube Placement Confirmation: visualized tube passing t, equal breath sounds bilat, no breath sounds over epi, confirmation by capnometr Intubation Complications: none ED Medical Decision Making - Medical Decision Making This patient presents to the emergency department in cardiac arrest. Last known well time was about 5:15 AM. The patient had remained in PEA and asystole throughout his ED course. Upon arrival we continued ACLS protocol. I intubated the patient as per the procedure section and then he received bag valve ventilation through the endotracheal tube. We continued chest compressions. He received 3 rounds of ACLS protocol including epinephrine, sodium bicarbonate. There was no ROSC obtained. The patient had been pulseless and anoxic for over 45 minutes. No spontaneous heart or breath sounds. Pupils are fixed and dilated. Time of was called at 6:02 AM. Family was notified and given an opportunity to see the patient. Critical Care Time: Yes Critical care time in (mins) excluding proc time.: 15 Critical care attestation.: If time is entered above; I have spent that time in minutes in the direct care of this critically ill patient, excluding procedure time. Critical care time spent on this patient doing his initial evaluation, supervision of ACLS protocol, and discussion with the patient's family. Critical Care Time: 15 minutes ED Disposition Clinical Impression: Cardiac arrest Acute respiratory failure Qualifiers: Respiratory failure complication: unspecified whether with hypoxia or hypercapnia Qualified Code(s): J96.00 - Acute respiratory failure, unspecified whether with hypoxia or hypercapnia Disposition: 20 Is pt being admited?: No Time of Disposition: 10:51
== END 2021-09-09 07:30 ==
LOC: ED 05:57
DX: I46.9 Cardiac arrest, cause unspecified (principal); J96.90 Respiratory failure, unspecified, unspecified whether with hypoxia or hypercapnia; Z90.49 Acquired absence of other specified parts of digestive tract; E11.8 Type 2 diabetes mellitus with unspecified complications
CPT/HCPCS: 31500; 92950; 99285